=== PATIENT | male | born 1965 | race Hispanic/Latino ===

== ENCOUNTER 2018-09-17 00:08 | Emergency (ER) | payer MEDICAID ==
--- OUTSIDE RECORDS SUMMARY | 2018-09-17 00:12 | XMS REPORT | Clinical Summary ---
:1965 Author Organization [facility] Address [address] [place] [address] Care Team Providers Name Role Phone Damian Masters MD Primary Care Provider Allergies Active Allergy Reactions Severity Noted Date Comments Cat/Feline Products 09/02/2017 Cat Dander -- Wheezing Coconut Shortness Of Breath High 02/06/2017 Tickles Throat, Triggers Asthma Facial Mask Shortness Of Breath High 05/02/2016 wheezing Tree Nut Hives High 02/06/2017 Pecan, Shortness of Breath Medications Medication Sig Dispensed Refills Start Date End Date Status albuterol HFA Inhale 1 puff 0 Active (VENTOLIN HFA) 90 by mouth via mcg/actuation inhaler inhaler every 6 (six) hours as needed for Wheezing. thiamine (VITAMIN Take 100 mg 0 Active B-1) 100 MG tablet by mouth daily. dumovplo-eseb-pyp-fol Take by mouth 0 Active ic acid daily. ([id number] NERALS-FOLIC ACID) 3,500-18-0.4 unit-mg-mg ChewIndications: Awaiting organ transplant status levETIRAcetam Take 1,000 mg 0 Active (KEPPRA) 1000 MG by mouth 2 tabletIndications: (two) times Awaiting organ daily. transplant status calcium carbonate Take 600 mg 0 Active (OS-KARL) 600 mg by mouth calcium (1,500 mg) daily. Tab cholecalciferol Take 400 0 Active (VITAMIN D3) 400 unit Units by Tab tablet mouth daily. ZINC ORAL Take by mouth 0 Active daily . 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 rifAXIMin 550 mg Take 1 tablet 60 tablet 6 04/05/2018 Active TabIndications: (550 mg Hepatic total) by encephalopathy (HCC) mouth 2 (two) times daily. folic acid (FOLVITE) Take 1 mg by 0 Discontinued 1 MG tablet mouth daily. 8 levETIRAcetam Take 1 tablet 60 tablet 3 12/24/2016 (KEPPRA) 1000 MG (1,000 mg 8 tablet total) by mouth 2 (two) times daily. propranolol (INDERAL) Take 10 mg by 0 Discontinued 10 MG mouth daily. 8 tabletIndications: Alcoholic cirrhosis of liver without ascites (HCC), Ascites due to alcoholic hepatitis, Immunity status testing, Cancer screening, Upper GI bleeding pantoprazole daily . 0 04/06/2017 Discontinued (PROTONIX) 40 MG 8 tabletIndications: Alcoholic cirrhosis of liver without ascites (HCC), Cancer screening, Acute encephalopathy, Hemiparesis (HCC), Hepatic cirrhosis, unspecified hepatic cirrhosis type (HCC) FOLIC Take by mouth 0 Discontinued ACID/MULTIVIT-MIN/LUT daily . 8 EIN (CENTRUM SILVER ORAL) lactulose (CHRONULAC) Take 30 mLs 3000 mL 3 07/20/2017 Discontinued 20 gram/30 mL (20 g total) 8 solution by mouth 3 (three) times daily. rifAXIMin 550 mg Take 1 tablet 60 tablet 6 08/25/2017 Discontinued TabIndications: (550 mg 8 Hepatic total) by encephalopathy (HCC) mouth 2 (two) times daily. clindamycin (CLEOCIN) Take 300 mg 0 Discontinued 300 MG capsule by mouth 3 8 (three) times daily. promethazine Take 25 mg by 0 Discontinued (PHENERGAN) 25 MG mouth every 6 8 tablet (six) hours as needed for Nausea. folic acid (FOLVITE) Take 1 tablet 30 tablet 0 11/25/2017 Discontinued 1 MG (1 mg total) 8 tabletIndications: by mouth Alcoholic cirrhosis daily. of liver without ascites (HCC) folic acid (FOLVITE) Take 1 tablet 30 tablet 1 12/31/2017 Discontinued 1 MG (1 mg total) 8 tabletIndications: by mouth Alcoholic cirrhosis daily. of liver without ascites (HCC) cholecalciferol, Take by mouth 0 Discontinued vitamin D3, 2,000 daily. 8 unit CapIndications: Awaiting organ transplant status folic acid (FOLVITE) Take 1 tablet 30 tablet 2 03/12/2018 Discontinued 1 MG (1 mg total) 8 tabletIndications: by mouth Alcoholic cirrhosis daily. of liver without ascites (HCC) Hospital, Clinic, or Other Ordered Dose Route Frequency Start Date End Date Status Facility Administered Medication hepatitis B vaccine 40 mcg IM Once 11/11/2017 11/11/2017 Ended (RECOMBIVAX HB) injection 40 mcgIndications: Viral hepatitis vaccination Active Problems Problem Noted Date Abnormal stress test 04/09/2018 Pre-transplant evaluation for liver transplant 04/09/2018 Zinc deficiency 11/03/2017 Bleeding gums 09/04/2017 Severe anemia 09/04/2017 Symptomatic anemia 09/04/2017 Alcoholic cirrhosis of liver without ascites 09/04/2017 Hyperbilirubinemia 08/06/2017 Portal hypertension 08/06/2017 Hypomagnesemia 07/18/2017 Metabolic acidosis 07/18/2017 Anemia 07/18/2017 Thrombocytopenia 07/18/2017 Coagulopathy 07/18/2017 Portal hypertension 07/18/2017 History of seizures 07/17/2017 Hepatic encephalopathy syndrome 07/17/2017 Alcoholic cirrhosis of liver without ascites 01/08/2017 Last Assessment & Plan: Current MELD of 16 Ascites 01/08/2017 Immunity status testing 01/08/2017 Cancer screening 01/08/2017 Seizures 12/22/2016 Hemiparesis 12/21/2016 Last Assessment & Plan: Largely recovered w/only lasting deficit of 4/5 strength in LLE, possibly attributable to longstanding avascular necrosis of L femoral head Acute blood loss anemia 12/21/2016 Upper GI bleeding 12/21/2016 Last Assessment & Plan: UGIB 12/21/16 sp SZ w/EGD 12/22/16. FU EGD 02/09/17 showed no active bleeding just inflammation, per pt. Acute encephalopathy 12/21/2016 Lactic acidosis 12/21/2016 MONALISA (acute kidney injury) 12/21/2016 Hypernatremia 05/13/2016 Aspiration pneumonia of right lung 05/13/2016 Essential hypertension 05/07/2016 Last Assessment & Plan: Well controlled on current regiment Seizures 05/07/2016 Chronic obstructive pulmonary disease with acute exacerbation 05/07/2016 Hematemesis 05/02/2016 Intracranial hemorrhage 05/02/2016 Acute encephalopathy 05/02/2016 Encounters Date Type Specialty Care Team Description 09/07/2018 Documentation Transplant Hepatology Gisella Muhammad, RN 08/29/2018 Orders Only Transplant Hepatology Gisella Muhammad, Awaiting organ transplant status (Primary Dx); RN Screening for endocrine, nutritional, metabolic and immunity disorder 08/16/2018 Orders Only Transplant Hepatology Gisella Muhammad, Awaiting organ transplant status (Primary Dx); RN Other cirrhosis of liver (HCC) 08/16/2018 Telephone Transplant Hepatology Kayley Johnson (Scheduled 09/03 mri appt w/pts mother. Itinerary mailed.) 08/10/2018 Social Work Transplant Hepatology Barbara Mccann, [facility] 08/03/2018 Follow-Up Transplant Hepatology Dutch Ferrara Abnormal stress test; MD Maryellen Alcoholic cirrhosis of liver without ascites (HCC); Perez Patterson, Other ascites; Chronic obstructive pulmonary disease with acute exacerbation (HCC); Coagulopathy (HCC); Hepatic encephalopathy syndrome (HCC); Portal hypertension (HCC); Zinc deficiency 08/02/2018 Telephone Transplant Hepatology Kayley Johnson (Confirmed 08/03 appt w/pts mother.) 07/19/2018 Anesthesia Event Gastroenterology Levi Colmenares MD 07/19/2018 Surgery Gastroenterology Radhika Grimm UPPER ENDOSCOPY MD Fitz 07/19/2018 Hospital Encounter Gastroenterology Radhika Grimm MD 07/09/2018 Hospital Encounter Pre-Admission Testing Resource, Oqmt Preadmit Phone 06/23/2018 Orders Only Transplant Hepatology Ducth Ferrara Awaiting organ MD Maryellen transplant status 06/16/2018 Telephone Hepatology Paulina Stokes Procedure (EGD/MAC) L 06/14/2018 Telephone Transplant Hepatology Kayley Johnson (Scheduled 06/23 labs & 08/03 clinic appt w/pts mother. Itinerary mailed.) 06/14/2018 Telephone Transplant Hepatology Alex Appointment (LVM. Salud Cortes Called to schedule MELD labs due 06/26 & clinic appt due July.) 04/09/2018 Surgery Kermit Pantoja, R & L CATH (+/- MD SATS & CARDIAC OUTPUT) 04/09/2018 Hospital Encounter Kermit Pantoja, Abnormal stress test; Pre-transplant evaluation for liver transplant 04/09/2018 Orders Only General Internal Medicine 04/05/2018 Refill Transplant Hepatology Gisella Muhammad Hepatic RN encephalopathy (HCC) 04/05/2018 Orders Only Transplant Hepatology Gisella Muhammad, RN 03/26/2018 Orders Only Lab Debora Masters Awaiting organ MD Alvino transplant status 03/18/2018 Hospital Encounter Radiology Kyler, Awaiting organ transplant status; Swathi Mi MD Hepatic cirrhosis, unspecified hepatic cirrhosis type, unspecified whether ascites present (HCC) [facility] 03/18/2018 Refill Transplant Hepatology Gisella Muhammad Hepatic RN encephalopathy (HCC) (Primary Dx) 03/17/2018 Documentation Hepatology Jimi Combs, DANIEL 03/12/2018 Orders Only Transplant Hepatology Gisella Muhammad, Alcoholic cirrhosis RN of liver without ascites (HCC) 03/11/2018 Hospital Encounter Cardiology Noé Lacey Awaiting organ MD Andreas transplant status 02/22/2018 Telephone Transplant Hepatology Kayley Johnson (Scheduled 03/18 mri appt w/pts mother. Itinerary mailed.) 02/22/2018 Telephone Transplant Hepatology Kayley Johnson (LVM. Salud Cortes Calling to schedule mri on 03/11 and clinic appt in july. 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) (Primary Dx); RN Alcoholic cirrhosis of liver without ascites (HCC); Ascites due to alcoholic hepatitis; Immunity status testing; Cancer screening; Upper GI bleeding 02/04/2018 Telephone Transplant Hepatology Kayley Johnson (Confirmed 03/11 appt w/pt.) 02/02/2018 Follow-Up Transplant Hepatology Noé Lacey Alcoholic cirrhosis of liver with ascites (HCC) (Primary Dx); MD Andreas Awaiting organ transplant status; Kyler, Portal hypertension (HCC); Swathi Mi MD Hepatic encephalopathy (HCC); [facility] Zinc deficiency; Alcohol use disorder (HCC); Screening for malignant neoplasm; Hyperbilirubinemia; Other ascites 02/01/2018 Telephone Transplant Hepatology Alex, Appointment (LVM. Salud Cortes Calling to confirm 02/02 appt w/pt.) 01/27/2018 Telephone Transplant Hepatology Alex, Appointment (Pts Salud Cortes sister called and confirmed 02/02 clinic appt 03/11 echo & 03/18 Dr Pantoja appt.) 12/31/2017 Refill Transplant Hepatology Gisella Muhammad, Alcoholic cirrhosis RN of liver without ascites (HCC) 12/24/2017 Orders Only Transplant Hepatology Dutch Ferrara Awaiting organ MD Maryellen transplant status 12/24/2017 Orders Only Transplant Hepatology Milton, Awaiting organ Kashaundra transplant status 12/23/2017 Orders Only Transplant Hepatology Gisella Muhammad, Awaiting organ tie binder status (Primary Dx) 12/18/2017 Refill Transplant Hepatology Gisella Muhammad, RN 11/25/2017 Orders Only Transplant Hepatology Natalie Whitley Alcoholic cirrhosis C, RN of liver without ascites (HCC) (Primary Dx) 11/23/2017 Telephone Transplant Hepatology Alex, Appointment Salud Cortes (Scheduled 02/02 clinic, 03/11 echo & confirmed 03/18 Dr Pantoja appt w/mother. Itinerary mailed.) 11/11/2017 Orders Only Transplant Hepatology Gisella Muhammad Viral hepatitis RN vaccination (Primary Dx) 11/09/2017 Hospital Encounter Radiology Noé Lacey Awaiting organ transplant status; MD Andreas Cirrhosis of liver with ascites, unspecified hepatic cirrhosis type (HCC) 11/09/2017 Telephone Transplant Hepatology Gisella Muhammad, Follow-up RN 11/09/2017 Outside Orders Noé Lacey MD 11/07/2017 Orders Only Transplant Hepatology Gisella Muhammad, Awaiting organ tie binder status (Primary Dx) 11/03/2017 Follow-Up Transplant Hepatology Sade Slater Awaiting organ transplant status (Primary Dx); MD Neri Immunity status testing; Abhijit, Rise Cirrhosis of liver with ascites, unspecified hepatic cirrhosis type (HCC); MD Andreas Screening for malignant neoplasm; Alcohol use disorder, mild, in sustained remission, abuse 11/02/2017 Telephone Transplant Hepatology Kayley Johnson (Cancelled 11/03 mri appt w/pts mother (due to no ins auth). ) 11/02/2017 Telephone Transplant Hepatology Kayley Johnson (Confirmed 11/02 appts w/pts mother.) 10/22/2017 Social Work Transplant Hepatology Barbara Mccann LCSW 10/21/2017 Documentation Transplant Hepatology Hang Verdin, [facility] 10/05/2017 Telephone Transplant Hepatology Kayley Johnson (Rescheduled 10/06 clinic & mri appts w/mother (mri not authorizated) rescheduled to 11/03. Itinerary mailed.) 10/05/2017 Telephone Transplant Hepatology Kayley Johnson (Confirmed 10/06 appts w/mom.) 09/22/2017 Social Work Transplant Hepatology Barbara Mccann [employer]ONT END [employer]UPAL DEVELOPER after 09/16/2017 Immunizations Name Dates Previously Given Next Due Hepatitis B 04/10/2017 05/11/2017 Hepatitis B Dialysis Or Immunosupressed 3-Dose IM 11/11/2017 Pneumococcal Polysaccharide (Pneumovax) 07/19/2017 Family History Medical History Relation Name Comments Hypertension Maternal Grandfather Hypertension Maternal Grandmother Relation Name Status Comments Maternal Grandfather Maternal Grandmother Social History Tobacco Use Types Packs/Day Years Used Date Former Smoker Smokeless Tobacco: Never Used Tobacco Cessation: Counseling Given: No Comments: QUIT 04/2016 Alcohol Use Drinks/Week oz/Week Comments No Quit drinking Apr 2016 Sex Assigned at Date Recorded Not on file Job Start Date Occupation Industry Not on file Not on file Not on file Travel History Travel Start Travel End No recent travel history available. Last Filed Vital Signs Vital Sign Reading Time Taken Blood Pressure 106/67 08/03/2018 9:21 AM BOTTLE DEALER Pulse 55 08/03/2018 9:21 AM BOTTLE DEALER Temperature 36.5 C (97.7 F) 08/03/2018 9:21 AM BOTTLE DEALER Respiratory Rate 18 08/03/2018 9:21 AM BOTTLE DEALER Oxygen Saturation 96% 08/03/2018 9:21 AM BOTTLE DEALER Inhaled Oxygen Concentration - - Weight 71.4 kg (157 lb 6.4 oz) 08/03/2018 9:21 AM BOTTLE DEALER Height 170.2 cm (5' 7") 08/03/2018 9:21 AM BOTTLE DEALER Body Mass Index 24.65 08/03/2018 9:21 AM BOTTLE DEALER Plan of Treatment Date Type Specialty Care Team Description 09/20/2018 Orders Only Transplant Hepatology Health Maintenance Due Date Last Done Comments INFLUENZA VACCINE 06/21/2018 Implants Implanted Type Area Warble Saw Operator Device Shelf Model / Identifier Expiration Serial / Date Lot Cement Inject 5cc Hydroset [id number] - [id number] Cement/Trent Right: SWETHA: SWETHA 01/28/2018 [id number] / Implanted: Qty: 1 on 05/02/2016 by Emmanuel Valerio MD ler/ Adhesi Scalp INSTR / ve [id number] Grft Dura Cllgn Duragn 1x1in Id-[id number] - [id number] Tissue Right: INTEGRA 06/20/2018 ID-1105 / Implanted: Qty: 1 on 05/02/2016 by Emmanuel Valerio MD Graft/ Subs Head LIFESCI:NEURO / titute [id number] Procedures Procedure Name Priority Date/Time Associated Comments Diagnosis REPORT OF PROCEDURE - 07/19/2018 12:31 ENDOSCOPY URL PM CDT TISSUE EXAM AP Routine 07/19/2018 12:19 Results for this PM CDT procedure are in the results section. UPPER ENDOSCOPY 07/19/2018 10:30 Esophageal varices AM CDT without bleeding, unspecified esophageal varices type (HCC) VASCULAR DIAGRAM 07/07/2018 7:10 -SCAN AM CDT CBC W/PLT COUNT & Routine 06/23/2018 10:01 Awaiting organ Results for this AUTO DIFFERENTIAL AM CDT transplant status procedure are in the results section. PROTHROMBIN TIME/INR Routine 06/23/2018 10:01 Awaiting organ Results for this AM CDT transplant status procedure are in the results section. BILIRUBIN, DIRECT Routine 06/23/2018 10:01 Awaiting organ Results for this AM CDT transplant status procedure are in the results section. CBC W/PLT COUNT & Routine 06/23/2018 10:01 Awaiting organ Results for this AUTO DIFFERENTIAL AM CDT transplant status procedure are in the results section. COMPREHENSIVE Routine 06/23/2018 10:01 Awaiting organ Results for this METABOLIC PANEL AM CDT transplant status procedure are in the results section. CARDIAC CATH REPORT - 04/14/2018 11:32 SCAN AM CDT VASCULAR DIAGRAM 04/13/2018 9:30 -SCAN AM CDT R & L CATH (+/- SATS 04/09/2018 12:57 Pre-transplant & CARDIAC OUTPUT) PM CDT evaluation for liver transplant Case Notes POP6 POSS PCI / CORONARY ANGIO ECG 12-LEAD Routine 04/09/2018 8:29 AM CDT Procedure Note - Interface, External Ris In - 04/09/2018 11:27 AM CDT Ventricular Rate 57 BPM Atrial Rate 57 BPM P-R Interval 226 ms QRS Duration 114 ms Q-T Interval 436 ms QTC Calculation(Bazett) 424 ms P [place] 56 degrees R [place] 62 degrees T [place] 56 degrees Sinus bradycardia with 1st degree A-V block Otherwise normal ECG When compared with ECG of 17-JUL-2017 09:49, Premature atrial complexes are no longer Present UT interval has increased ECG 12-LEAD Routine 04/09/2018 8:29 Results for this AM CDT procedure are in the results section. CBC W/PLT COUNT & AUTO STAT 04/09/2018 7:46 Results for this DIFFERENTIAL AM CDT procedure are in the results section. PT/APTT STAT 04/09/2018 7:46 Results for this AM CDT procedure are in the results section. CBC W/PLT COUNT & AUTO STAT 04/09/2018 7:46 Results for this DIFFERENTIAL AM CDT procedure are in the results section. BASIC METABOLIC PANEL STAT 04/09/2018 7:46 Results for this (7) AM CDT procedure are in the results section. CBC W/PLT COUNT & AUTO Routine 03/26/2018 11:23 Awaiting organ Results for this DIFFERENTIAL AM CDT transplant status procedure are in the results section. PROTHROMBIN TIME/INR Routine 03/26/2018 11:23 Awaiting organ Results for this AM CDT transplant status procedure are in the results section. BILIRUBIN, DIRECT Routine 03/26/2018 11:23 Awaiting organ Results for this AM CDT transplant status procedure are in the results section. CBC W/PLT COUNT & AUTO Routine 03/26/2018 11:23 Awaiting organ Results for this DIFFERENTIAL AM CDT transplant status procedure are in the results section. COMPREHENSIVE METABOLIC Routine 03/26/2018 11:23 Awaiting organ Results for this PANEL AM CDT transplant status procedure are in the results section. MR ABDOMEN WITH/WITHOUT Routine 03/18/2018 1:23 Awaiting organ Results for this IV CONTRAST PM CDT transplant status procedure are in Hepatic cirrhosis, the results unspecified hepatic section. cirrhosis type, unspecified whether ascites present (HCC) POCT-CREATININE Routine 03/18/2018 12:58 Results for this PM CDT procedure are in the results section. ECHOCARDIOGRAM REPORT - 03/11/2018 10:52 SCAN AM CDT ECHO W CONTRAST & Routine 03/11/2018 8:37 Awaiting organ Results for this DOPPLER AM CDT transplant status procedure are in the results section. CBC W/PLT COUNT & AUTO Routine 02/02/2018 9:53 Awaiting organ Results for this DIFFERENTIAL AM CDT transplant status procedure are in the results section. CBC W/PLT COUNT & AUTO Routine 02/02/2018 9:53 Awaiting organ Results for this DIFFERENTIAL AM CDT transplant status procedure are in the results section. PROTHROMBIN TIME/INR Routine 02/02/2018 9:53 Awaiting organ Results for this AM CDT transplant status procedure are in the results section. BILIRUBIN, DIRECT Routine 02/02/2018 9:53 Awaiting organ Results for this AM CDT transplant status procedure are in the results section. COMPREHENSIVE METABOLIC Routine 02/02/2018 9:53 Awaiting organ Results for this PANEL AM CDT transplant status procedure are in the results section. HEPATITIS B SURFACE Routine 02/02/2018 9:53 Awaiting organ Results for this ANTIBODY AM CDT transplant status procedure are in the results section. CBC W/PLT COUNT & AUTO Routine 12/24/2017 12:53 Awaiting organ Results for this DIFFERENTIAL PM CDT transplant status procedure are in the results section. PROTHROMBIN TIME/INR Routine 12/24/2017 12:53 Awaiting organ Results for this PM CDT transplant status procedure are in the results section. BILIRUBIN, DIRECT Routine 12/24/2017 12:53 Awaiting organ Results for this PM CDT transplant status procedure are in the results section. CBC W/PLT COUNT & AUTO Routine 12/24/2017 12:53 Awaiting organ Results for this DIFFERENTIAL PM CDT transplant status procedure are in the results section. COMPREHENSIVE METABOLIC Routine 12/24/2017 12:53 Awaiting organ Results for this PANEL PM CDT transplant status procedure are in the results section. US ABDOMINAL WITH Routine 11/09/2017 9:56 Results for this DOPPLER AM BOTTLE DEALER procedure are in the results section. CBC W/PLT COUNT & AUTO Routine 11/03/2017 10:22 Awaiting organ Results for this DIFFERENTIAL AM BOTTLE DEALER transplant status procedure are in the results section. HEPATITIS B SURFACE Routine 11/03/2017 10:22 Immunity status Results for this ANTIBODY AM BOTTLE DEALER testing procedure are in the results section. ZINC Routine 11/03/2017 10:22 Awaiting organ Results for this AM BOTTLE DEALER transplant status procedure are in the results section. MAGNESIUM Routine 11/03/2017 10:22 Awaiting organ Results for this AM BOTTLE DEALER transplant status procedure are in the results section. PROTHROMBIN TIME/INR Routine 11/03/2017 10:22 Awaiting organ Results for this AM BOTTLE DEALER transplant status procedure are in the results section. COMPREHENSIVE METABOLIC Routine 11/03/2017 10:22 Awaiting organ Results for this PANEL AM BOTTLE DEALER transplant status procedure are in the results section. CBC W/PLT COUNT & AUTO Routine 11/03/2017 10:22 Awaiting organ Results for this DIFFERENTIAL AM BOTTLE DEALER transplant status procedure are in the results section. BILIRUBIN, DIRECT Routine 11/03/2017 10:22 Awaiting organ Results for this AM BOTTLE DEALER transplant status procedure are in the results section. ALPHA FETOPROTEIN Routine 11/03/2017 10:22 Awaiting organ Results for this (AFP), TUMOR MARKER AM BOTTLE DEALER transplant status procedure are in the results section. after 09/16/2017 Results REPORT OF PROCEDURE - ENDOSCOPY URL (07/19/2018 12:31 PM CDT) Narrative Performed At Tissue Exam (07/19/2018 12:19 PM CDT) Case Report Surgical Pathology Report Case: [id number] [facility] Authorizing Provider:Radhika Grimm MDCollected: 07/19/2018 1219 [facility] Ordering Location: [facility] Endoscopy Received: 07/19/2018 1354 Services Pathologist: Rama Hatch MD Specimens: A) - Duodenum, Bx B) - Antrum, R/O Helicobacter DIAGNOSIS A. DUODENUM, ENDOSCOPIC MUCOSAL BIOPSIES: [facility] - DUODENAL MUCOSA WITH PRESERVED VILLOUS ARCHITECTURE AND MINOR [facility] NONSPECIFIC ALTERATIONS B. STOMACH, ENDOSCOPIC MUCOSAL BIOPSIES - ANTRAL MUCOSA WITH NO SIGNIFICANT DIAGNOSTIC ALTERATIONS - NEGATIVE FOR HELICOBACTER PYLORI - NEGATIVE FOR INTESTINAL METAPLASIA, DYSPLASIA OR CARCINOMA Signing Pathologist Direct Phone Line: [phone] CPT Code(s) 04645 x2, 23814 [facility] CLINICAL HISTORY Esophageal varices without [facility] bleeding, rule out H. pylori [facility] SPECIMEN SOURCE A. Duodenum biopsy; B. [facility] Antrum biopsy [facility] GROSS DESCRIPTION Specimen A; Received in formalin labeled "duodenum" are two fragments measuring 0.2 and 0.3 cm in greatest dimension. Entirely submitted A1. [facility] Specimen B. Received in formalin labeled "antrum" are two fragments measuring 0.4 and 0.6 cm in greatest dimension. Entirely submitted B1. DB/pl MICROSCOPIC DESCRIPTION A. Section shows pieces of duodenal mucosa with preserved villous architecture. Mild vascular congestion is seen. Plasma cells are present. There is no active inflammation, gastric metaplasia, intraepit [facility] helial lymphocytosis or malignancy. No parasites are seen. [facility] B. Microscopic examination is performed and the findings are incorporated in the diagnostic line. Warthin starry stain is negative for Helicobacter pylori. Specimen Tissue - Duodenum Performing Organization Address City/State/Zipcode Phone Number [address] [address] CENTER VASCULAR DIAGRAM -SCAN (07/07/2018 7:10 AM CDT)Only the most recent of2 resultswithin the time period is included. Narrative Performed At CBC with platelet count + automated diff (06/23/2018 10:01 AM CDT)Only the most recent of6 resultswithin the time period is included. WBC 3.7 3.5 - 10.5 K/L [facility] RBC 4.02 (L) 4.63 - 6.08 M/L [facility] Hemoglobin 12.2 (L) 13.7 - 17.5 GM/DL [facility] Hematocrit 37.1 (L) 40.1 - 51.0 % [facility] MCV 92.3 (H) 79.0 - 92.2 fL [facility] MCH 30.3 25.7 - 32.2 pg [facility] MCHC 32.9 32.3 - 36.5 GM/DL [facility] RDW 14.4 11.6 - 14.4 % [facility] Platelets 67 (L) 150 - 450 K/CU MM [facility] MPV 11.6 9.4 - 12.4 fL [facility] nRBC 0 0 - 0 /100 WBC [facility] % Neutros 54 % [facility] % Lymphs 30 % [facility] % Monos 12 % [facility] % Eos 4 % [facility] % Baso 1 % [facility] # Neutros 1.98 1.78 - 5.38 K/L [facility] # Lymphs 1.10 (L) 1.32 - 3.57 K/L [facility] # Monos 0.43 0.30 - 0.82 K/L [facility] # Eos 0.14 0.04 - 0.54 K/L [facility] # Baso 0.02 0.01 - 0.08 K/L [facility] Immature Granulocytes-Relative 0 0 - 1 % [facility] Specimen Blood Performing Organization Address City/State/Zipcode Phone Number [facility] [address] [place] [address] CENTER Prothrombin time/INR (06/23/2018 10:01 AM CDT)Only the most recent of5 resultswithin the time period is included. Protime 17.0 (H) 11.7 - 14.7 seconds [facility] INR 1.4 <=5.9 [facility] Specimen Blood Narrative Performed At [facility] RECOMMENDED COUMADIN/WARFARIN INR THERAPY RANGES STANDARD DOSE: 2.0 - 3.0 Includes: PROPHYLAXIS for venous thrombosis, systemic embolization; TREATMENT for venous thrombosis and/or pulmonary embolus. HIGH RISK: Target INR is 2.5-3.5 for patients with mechanical heart valves. Performing Organization Address City/[facility] Phone Number [address] [phone] CENTER Bilirubin, direct (06/23/2018 10:01 AM CDT)Only the most recent of5 resultswithin the time period is included. Bilirubin, Direct 1.0 (H) 0.1 - 0.5 mg/dL [facility] Specimen Blood Performing Organization Address [facility] Phone Number [address] [phone] [place] Comprehensive metabolic panel (06/23/2018 10:01 AM CDT)Only the most recent of5 resultswithin the time period is included. Protein, Total 7.3 6.0 - 8.3 gm/dL [facility] Albumin 3.2 (L) 3.5 - 5.0 g/dL [facility] Alkaline Phosphatase 81 40 - 150 U/L [facility] Total Bilirubin 2.1 (H) 0.2 - 1.2 mg/dL [facility] Sodium 140 136 - 145 meq/L [facility] Potassium 3.6 3.5 - 5.1 meq/L [facility] Chloride 111 (H) 98 - 107 meq/L [facility] CO2 21 (L) 22 - 29 meq/L [facility] BUN 16 7 - 21 mg/dL [facility] Creatinine 1.10 0.57 - 1.25 mg/dL [facility] Glucose 99 70 - 105 mg/dL [facility] Calcium 9.4 8.4 - 10.2 mg/dL [facility] AST 23 5 - 34 U/L [facility] ALT 14 6 - 55 U/L [facility] EGFR 69Comment: ESTIMATED GFR mL/min/1.73 sq m [facility] IS NOT ACCURATE [facility] CREATININE CLEARANCE IN PREDICTING GLOMERULAR FILTRATION RATE. ESTIMATED GFR IS NOT APPLICABLE FOR DIALYSIS PATIENTS. Specimen Blood Performing Organization Address City/[facility] Phone Number [facility] [address] [place] [address] [phone] CENTER CARDIAC CATH REPORT - SCAN (04/14/2018 11:32 AM CDT) Narrative Performed At ECG 12 lead (04/09/2018 8:29 AM CDT) Narrative Performed At Ventricular Rate 57 BPM GE MUSE Atrial Rate 57 BPM P-R Interval 226 ms QRS Duration 114 ms Q-T Interval 436 ms QTC Calculation(Bazett) 424 ms P [place] 56 degrees R [place] 62 degrees T [place] 56 degrees Sinus bradycardia with 1st degree A-V block Otherwise normal ECG When compared with ECG of 17-JUL-2017 09:49, Premature atrial complexes are no longer Present UT interval has increased Confirmed by Huber Sweeney, Dylan ([id number]) on 04/11/2018 8:21:05 PM Procedure Note Interface, External Ris In - 04/11/2018 8:21 PM CDT Ventricular Rate 57 BPM Atrial Rate 57 BPM P-R Interval 226 ms QRS Duration 114 ms Q-T Interval 436 ms QTC Calculation(Bazett) 424 ms P [place] 56 degrees R [place] 62 degrees T [place] 56 degrees Sinus bradycardia with 1st degree A-V block Otherwise normal ECG When compared with ECG of 17-JUL-2017 09:49, Premature atrial complexes are no longer Present UT interval has increased Confirmed by Huber Sweeney Alireaz ([id number]) on 04/11/2018 8:21:05 PM Performing Organization Address City/[facility]/Zipcode Phone Number LOPEZ GERMAN PT/aPTT (04/09/2018 7:46 AM CDT) Protime 18.9 (H) 11.7 - 14.7 seconds [facility] INR 1.6 <=5.9 [facility] PTT 46.7 (H) 22.5 - 36.0 seconds [facility] Specimen Blood Narrative Performed At [facility] RECOMMENDED COUMADIN/WARFARIN INR THERAPY RANGES STANDARD DOSE: 2.0 - 3.0 Includes: PROPHYLAXIS for venous thrombosis, systemic embolization; TREATMENT for venous thrombosis and/or pulmonary embolus. HIGH RISK: Target INR is 2.5-3.5 for patients with mechanical heart valves. Performing Organization Address [facility] Phone Number [address] [address] CENTER Basic Metabolic Panel (04/09/2018 7:46 AM CDT) Sodium 139 136 - 145 meq/L [facility] Potassium 3.8 3.5 - 5.1 meq/L [facility] Chloride 111 (H) 98 - 107 meq/L [facility] CO2 21 (L) 22 - 29 meq/L [facility] BUN 17 7 - 21 mg/dL [facility] Creatinine 1.15 0.57 - 1.25 mg/dL [facility] Glucose 113 (H) 70 - 105 mg/dL [facility] Calcium 9.3 8.4 - 10.2 mg/dL [facility] EGFR 66Comment: ESTIMATED GFR IS mL/min/1.73 sq m [facility] NOT ACCURATE CREATININE [facility] CLEARANCE IN PREDICTING GLOMERULAR FILTRATION RATE. ESTIMATED GFR IS NOT APPLICABLE FOR DIALYSIS PATIENTS. Specimen Blood Narrative Performed At [facility] Specimen slightly icteric Performing Organization Address [facility]/Zipcode Phone Number [facility] [address] [place] [address] [phone] CENTER MRI abdomen with and without contrast (03/18/2018 1:23 PM CDT) Narrative Performed At FINAL REPORT [facility] History: Cirrhosis, liver transplant list Comparison: None Technique : Multiplanar imaging with multiple sequences of the abdomen was performed utilizing a 3.0 xander magnet with and without the administration of gadolinium contrast. Comment: The lung bases are clear. There are no focal or diffuse abnormalities of the osseous structures. The subcutaneous soft tissues as well as the musculature are within normal limits. The adrenal glands, kidneys, pancreas, stomach, and duodenum are within normal limits. There is no abdominal or retroperitoneal lymphadenopathy. The visualized portions of the large and small bowel are within normal limits. There is cholelithiasis. There is hepatic cirrhosis. No suspicious enhancing hepatic lesions are seen. There is splenomegaly. No ascites is identified. The portal vein measures up to a maximum of 1.3 cm in diameter. There is a recanalized periumbilical vein. There is no portal, splenic, or superior mesenteric vein thrombosis. 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 Impression: 1. Hepatic cirrhosis. No suspicious enhancing hepatic lesions are seen. 2. Splenomegaly with findings of portal hypertension. 3. Cholelithiasis. Signed: Malik Villatoro MD Report Verified Date/Time:03/18/2018 14:17:19 Reading Location: [facility] Diagnostic Imaging Reading Room - [place] [address] Procedure Note Interface, External Ris In - 03/18/2018 2:19 PM CDT FINAL REPORT History: Cirrhosis, liver transplant list Comparison: None Technique : Multiplanar imaging with multiple sequences of the abdomen was performed utilizing a 3.0 xander magnet with and without the administration of gadolinium contrast. Comment: The lung bases are clear. There are no focal or diffuse abnormalities of the osseous structures. The subcutaneous soft tissues as well as the musculature are within normal limits. The adrenal glands, kidneys, pancreas, stomach, and duodenum are within normal limits. There is no abdominal or retroperitoneal lymphadenopathy. The visualized portions of the large and small bowel are within normal limits. There is cholelithiasis. There is hepatic cirrhosis. No suspicious enhancing hepatic lesions are seen. There is splenomegaly. No ascites is identified. The portal vein measures up to a maximum of 1.3 cm in diameter. There is a recanalized periumbilical vein. There is no portal, splenic, or superior mesenteric vein thrombosis. 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 Impression: 1. Hepatic cirrhosis. No suspicious enhancing hepatic lesions are seen. 2. Splenomegaly with findings of portal hypertension. 3. Cholelithiasis. Signed: Malik Villatoro MD Report Verified Date/Time: 03/18/2018 14:17:19 Reading Location: [facility] Diagnostic Imaging Reading Room - [place] [address] Performing Organization Address City/[facility]/Zipcode Phone Number [employer] POC-Creatinine (03/18/2018 12:58 PM CDT) POC-Creatinine 1.1Comment: TESTED AT 0.6 - 1.3 mg/dL [address] [address] POC-EGFR 70 mL/min/1.73M2 [facility] Specimen Blood Performing Organization Address [facility]/Zipcode Phone Number [address] [address] [place] ECHOCARDIOGRAM REPORT - SCAN (03/11/2018 10:52 AM CDT) Narrative Performed At ECHO W CONTRAST & DOPPLER (03/11/2018 8:37 AM CDT) Ejection Fraction [facility] Narrative Performed At Transthoracic Echocardiography Report (TTE) [facility] Demographics Patient Name AFSHAN WONG Date of Study 03/11/2018 [id number] GenderMale Visit Number [id number] Unknown [id number] Room Number Number Date of Birth1965Referring Physician Abhijit Nettles Age52 year(s)Bender Machine Serafin Campoverde RDCS AnalystAPhysician ALICE Alvarez Procedure Type of Study TTE procedure:2DECHO W/CONTRAST & DOPPLER (Routine) Indications:Liver transplant evaluation. Clinical History HTN, Cirrhosis, Anemia Height: 67 inches Weight: 65.77 kg (145 lbs) BSA: 1.76 m^2 BMI: 22.71 kg/m^2 HR: 53 bpm BP: 134/76 mmHg Summary The left ventricle is chamber size (by vol index) is normal (male - LVED vol - 34-74ml/m2). Normal LV wall thickness. All of the LV segments contract normally . Global LV systolic function normal . LVEF by Pantoja's method of disk assessment is normal (55-60%) . Normal diastolic function. The right ventricular chamber size and systolic function are within normal limits. Estimated peak systolic PA pressure is 20-25 mmHg . No pericardial effusion is visualized. Previous Study Compared to the previous study there was no significant change. Previous study on 03/04/2017 demonstrated Intra pulmonic shunting by delayed positive saline study. Signature Findings Left Ventricle The LV endocardium is adequately visualized. Th e left ventricle is chamber size (by vol index) is normal (male - LVED vol - 34-74ml/m2). No rmal LV wall thickness. Al l of the LV segments contract normally . Gl obal LV systolic function normal . LV EF by Pantoja's method of disk assessment is no rmal (55-60%) . No rmal diastolic function. Left AtriumLA size is normal (16-34 ml/m2) . Right VentricleThe right ventricular chamber size and systolic fu nction are within normal limits. Right Atrium RA size is normal. Aortic Valve Normal AoV structure and function. Mitral Valve Normal MV structure. No significant mitral regurgitation. Tricuspid ValveNormal TV structure A trace of tricuspid regurgitation. Es timated peak systolic PA pressure is 20-25 mmHg . Pulmonic Valve Normal PV structure and function. AortaAortic root size (SInus of Valsalva diameter) is mi ldly dilated . Pr oximal ascending aorta size is normal . PericardiumNo pericardial effusion is visualized. IVC/SVC/PA/PV/PleuralThe estimated RA pressure by IVC dynamics 0-5mmHg . Chambers/Structures Left Atrium LA Dimension: 4.11 cmLA Area: 21.33 cm^2 LA Volume: 59.28 ml LA Vol. Index: 34 ml/m^2 Left Ventricle LVIDd: 4.84 cm LVEDV:114.19 ml LVIDs: 3.09 cm LV Septum Diastolic: 0.87 cm LV PW Diastolic: 0.88 cm LV Length: 8.25 cm LVEDV Pantoja's:102.24 mlLV FS: 36.2 % LVESV Pantoja's:44.19 ml LV IVRT: 100.1 msec LVEF Pantoja's: 56.8 % LVEDVI: 58 ml/m^2 LVESVI: 25 ml/m^2 LVOT Diameter: 2.04 cm Right Atrium RA Vol. (Sngl Plane): 45.43 ml Right Ventricle RV Diast Dim.: 3.79 cm TAPS E: 2.82 cm Aorta Ao Root S of Qi.: 3.7 cm Ascending Aorta: 3 cm Doppler/Quantitative Measurements Mitral Valve MV Peak E-Wave: 0.66 m/sMV Peak A-Wave: 0.35 m/s E/A Ratio: 1.88 Peak Gradient: 1.75 mmHg Deceleration Time: 200.1 msec MV Tuan. Peak: Tissue Doppler E' Lateral Velocity: 0.1 m/sE/E': 6.86 Aortic Valve Peak Velocity: 1.22 m/sMean Velocity: 0.88 m/s Peak Gradient: 5.99 mmHg Mean Gradient: 3.44 mmHg AV Area (continuity): 2.85 cm^2 AV VTI: 30.5 cm AV DVI: 0.87 LVOT Peak Velocity: 0.97 m/s Peak Gradient: 3.73 mmHg Mean Velocity: 0.69 m/s Mean Gradient: 2.09 mmHg LVOT Diameter: 2.04 cmLVOT VTI: 26.59 cm LVOT Area: 3.27 cm^2LVOT SV:86.87 ml LVOT CO: 4.6 l/minLVOT CI: 2.61 l/min/m^2 RVOT RVOT VTI (PW): 19.7 cm Tricuspid Valve TR Velocity: 2.35 m/s TR Gradient: 22.1 mmHg Procedure Note Interface, External Ris In - 03/11/2018 10:26 AM CDT Transthoracic Echocardiography Report (TTE) Demographics Patient Name AFSHAN WONG Date of Study 03/11/2018 Gender Male Visit Number [id number] Race Unknown Room Number Number Date of 1965 Referring Physician Abhijit Nettles Age 52 year(s) Bender Machine Serafin Campoverde RD Biometrics Specialist Alice Mahmood Interpreting Physician ALICE Cramer Procedure Type of Study TTE procedure:2DECHO W/CONTRAST & DOPPLER (Routine) Indications:Liver transplant evaluation. Clinical History HTN, Cirrhosis, Anemia Height: 67 inches Weight: 65.77 kg (145 lbs) BSA: 1.76 m^2 BMI: 22.71 kg/m^2 HR: 53 bpm BP: 134/76 mmHg Summary The left ventricle is chamber size (by vol index) is normal (male - LVED vol - 34-74ml/m2). Normal LV wall thickness. All of the LV segments contract normally . Global LV systolic function normal . LVEF by Pantoja's method of disk assessment is normal (55-60%) . Normal diastolic function. The right ventricular chamber size and systolic function are within normal limits. Estimated peak systolic PA pressure is 20-25 mmHg . No pericardial effusion is visualized. Previous Study Compared to the previous study there was no significant change. Previous study on 03/04/2017 demonstrated Intra pulmonic shunting by delayed positive saline study. Signature Findings Left Ventricle The LV endocardium is adequately visualized. The left ventricle is chamber size (by vol index) is normal (male - LVED vol - 34-74ml/m2). Normal LV wall thickness. All of the LV segments contract normally . Global LV systolic function normal . LVEF by Pantoja's method of disk assessment is normal (55-60%) . Normal diastolic function. Left Atrium LA size is normal (16-34 ml/m2) . Right Ventricle The right ventricular chamber size and systolic function are within normal limits. Right Atrium RA size is normal. Aortic Valve Normal AoV structure and function. Mitral Valve Normal MV structure. No significant mitral regurgitation. Tricuspid Valve Normal TV structure A trace of tricuspid regurgitation. Estimated peak systolic PA pressure is 20-25 mmHg . Pulmonic Valve Normal PV structure and function. Aorta Aortic root size (SInus of Valsalva diameter) is mildly dilated . Proximal ascending aorta size is normal . Pericardium No pericardial effusion is visualized. IVC/SVC/PA/PV/Pleural The estimated RA pressure by IVC dynamics 0-5mmHg . Chambers/Structures Left Atrium LA Dimension: 4.11 cm LA Area: 21.33 cm^2 LA Volume: 59.28 ml LA Vol. Index: 34 ml/m^2 Left Ventricle LVIDd: 4.84 cm LVEDV:114.19 ml LVIDs: 3.09 cm LV Septum Diastolic: 0.87 cm LV PW Diastolic: 0.88 cm LV Length: 8.25 cm LVEDV Pantoja's:102.24 ml LV FS: 36.2 % LVESV Pantoja's:44.19 ml LV IVRT: 100.1 msec LVEF Pantoja's: 56.8 % LVEDVI: 58 ml/m^2 LVESVI: 25 ml/m^2 LVOT Diameter: 2.04 cm Right Atrium RA Vol. (Sngl Plane): 45.43 ml Right Ventricle RV Diast Dim.: 3.79 cm TAPSE: 2.82 cm Aorta Ao Root S of Qi.: 3.7 cm Ascending Aorta: 3 cm Doppler/Quantitative Measurements Mitral Valve MV Peak E-Wave: 0.66 m/s MV Peak A-Wave: 0.35 m/s E/A Ratio: 1.88 Peak Gradient: 1.75 mmHg Deceleration Time: 200.1 msec MV Tuan. Peak: Tissue Doppler E' Lateral Velocity: 0.1 m/s E/E': 6.86 Aortic Valve Peak Velocity: 1.22 m/s Mean Velocity: 0.88 m/s Peak Gradient: 5.99 mmHg Mean Gradient: 3.44 mmHg AV Area (continuity): 2.85 cm^2 AV VTI: 30.5 cm AV DVI: 0.87 LVOT Peak Velocity: 0.97 m/s Peak Gradient: 3.73 mmHg Mean Velocity: 0.69 m/s Mean Gradient: 2.09 mmHg LVOT Diameter: 2.04 cm LVOT VTI: 26.59 cm LVOT Area: 3.27 cm^2 LVOT SV:86.87 ml LVOT CO: 4.6 l/min LVOT CI: 2.61 l/min/m^2 RVOT RVOT VTI (PW): 19.7 cm Tricuspid Valve TR Velocity: 2.35 m/s TR Gradient: 22.1 mmHg Performing Organization Address City/[facility] Phone Number [facility] MKCKESSON CPACS Hepatitis B surface antibody (02/02/2018 9:53 AM CDT)Only the most recent of2 resultswithin the time period is included. Hep B S Ab <8.0 <8.0 mIU/mL [facility] Specimen Blood Performing Organization Address City/[facility] Phone Number [address] [address] [phone] CENTER US abdominal with doppler (11/09/2017 9:56 AM BOTTLE DEALER) Narrative Performed At FINAL REPORT [employer] Ultrasound of the Abdomen and Duplex Doppler. TECHNIQUE: Sonographic assessment of the abdomen was performed as well as a detailed duplex Doppler assessment of the liver including spectral wave forms and color-flow analysis of the major vascular structures. Clinical History: hepatic cirrhosis, on liver transplant list. Comparison study: December 22, 2016. Findings: The liver is coarse and nodular in echotexture with no focal masses. It measures 11.5 cm in length. There is no evidence of intra or extrahepatic biliary dilatation with the common bile duct measuring four mm. The main portal vein diameter is 1.2 cm. The cholelithiasis is seen with no sonographic evidence of acute cholecystitis. The spleen measures 12.0 cm, unremarkable. The pancreas is within normal limits. No ascites is present. The right kidney measures 10.1 cm and left kidney measures 10.6 cm, both within normal limits.No pleural effusions are seen.The proximal aorta and IVC are unremarkable. Doppler interrogation of the liver demonstrates a main portal vein diameter measuring 1.2 cm with a peak systolic velocity of 21 cm/sec. Hepatopetal inflow is seen in the right, left, main portal and splenic veins. The resistive indices in the proper, right and left hepatic arteries are 0.70, 0.63 and 0.67 respectively. Outflow with appropriate directionality is seen in the IVC, hepatic venous confluence as well as the right, middle and left hepatic veins. Impression: 1. Nodular, coarse liver consistent with the patient's known history of cirrhosis. No focal masses are seen. 2. Cholelithiasis. 3. Unremarkable hepatic Doppler. Signed: Yifan Jasso MD Report Verified Date/Time:11/09/2017 11:52:19 Reading Location: [address] Radiology Reading Room Procedure Note Interface, External Ris In - 11/09/2017 11:54 AM BOTTLE DEALER FINAL REPORT Ultrasound of the Abdomen and Duplex Doppler. TECHNIQUE: Sonographic assessment of the abdomen was performed as well as a detailed duplex Doppler assessment of the liver including spectral wave forms and color-flow analysis of the major vascular structures. Clinical History: hepatic cirrhosis, on liver transplant list. Comparison study: December 22, 2016. Findings: The liver is coarse and nodular in echotexture with no focal masses. It measures 11.5 cm in length. There is no evidence of intra or extrahepatic biliary dilatation with the common bile duct measuring four mm. The main portal vein diameter is 1.2 cm. The cholelithiasis is seen with no sonographic evidence of acute cholecystitis. The spleen measures 12.0 cm, unremarkable. The pancreas is within normal limits. No ascites is present. The right kidney measures 10.1 cm and left kidney measures 10.6 cm, both within normal limits. No pleural effusions are seen. The proximal aorta and IVC are unremarkable. Doppler interrogation of the liver demonstrates a main portal vein diameter measuring 1.2 cm with a peak systolic velocity of 21 cm/sec. Hepatopetal inflow is seen in the right, left, main portal and splenic veins. The resistive indices in the proper, right and left hepatic arteries are 0.70, 0.63 and 0.67 respectively. Outflow with appropriate directionality is seen in the IVC, hepatic venous confluence as well as the right, middle and left hepatic veins. Impression: 1. Nodular, coarse liver consistent with the patient's known history of cirrhosis. No focal masses are seen. 2. Cholelithiasis. 3. Unremarkable hepatic Doppler. Signed: Yifan Jasso MD Report Verified Date/Time: 11/09/2017 11:52:19 Reading Location: [address] Radiology Reading Room Performing Organization Address City/[facility] Phone Number RIS Zinc (11/03/2017 10:22 AM BOTTLE DEALER) Zinc 47 (L) 60 - 130 mcg/dL [facility] Comment: INCORPORATED This test was developed and its analytical performance characteristics have been determined by [facility]. It has not been cleared or approved by the US Food and Drug Administration. This assay has been validated pursuant to the CLIA regulations and is used for clinical purposes. Specimen Blood Narrative Performed At Performing Lab [facility] *[facility], [address] [place] [phone] Andreas Hernández MD, PhD Performing Organization Address City/State/Zipcode Phone Number [employer] [place], [place] [address] INCORPORATED [phone] [facility] Alpha fetoprotein (AFP), tumor marker (11/03/2017 10:22 AM BOTTLE DEALER) Alpha-Fetoprotein 3.3 <10.0 ng/mL [facility] Specimen Blood Performing Organization Address City/State/Zipcode Phone Number [facility] [address] [place] [address] [phone] CENTER Magnesium (11/03/2017 10:22 AM BOTTLE DEALER) Magnesium 1.6 1.6 - 2.6 mg/dL [facility] Specimen Blood Performing Organization Address City/State/Zipcode Phone Number [facility] [address] [place] [address] [phone] CENTER after 09/16/2017 Insurance Payer Benefit Plan / Group Subscriber ID Type Phone Address [place] xxxxxxxxx Advance Directives Patient has advance care planning documents, and code status on file. For more information, please contact:[facility] [place], [place] [phone] Code Status Date Activated Date Inactivated Comments Full Code 04/09/2018 7:09 AM 04/09/2018 9:06 PM This code status was determined by: Patient Full Code 09/04/2017 8:13 PM 09/06/2017 4:10 PM This code status was determined by: Patient Full Code 07/17/2017 2:41 PM 07/20/2017 8:02 PM This code status was determined by: Patient Full Code 12/21/2016 1:23 PM 12/24/2016 3:54 PM This code status was determined by: Patient Full Code 05/11/2016 1:20 PM 07/02/2016 8:33 PM This [id number] was [id number] by: [id number]
--- OUTSIDE RECORDS SUMMARY | 2018-09-17 00:13 | XMS REPORT | Continuity of Care Document ---
:1965 Author Organization Interface Problems Problem Status Onset Classification Date Comments Source Date Reported I63.39 - CEREBRAL Active 06/24/20 [facility] INFARCTION DUE TO 17 [place] THR I63.39 Active 06/24/20 [facility] DOPPLER 17 [place] 2-D/ I63.39 / Active 06/05/20 R56.9/ M54. 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 [facility] cirrhosis [facility] Asthma Active Problem 03/20/2018 [facility] Right cervical Active Problem 03/20/2018 [facility] radiculopathy [facility] Cervical Active Problem 03/20/2018 [facility] spondylosis with Neuro, myelopathy Medical Group Chest pain Resolved Problem 03/20/2018 [facility] Alcoholism in Active Problem 03/20/2018 [facility] remission [facility] Cirrhosis of liver Resolved Problem 03/20/2018 [facility] Long-term use of Active Problem 03/20/2018 [facility] high-risk Neuro, medication Medical Group H/O: Resolved Problem 03/20/2018 in 2010 [facility] stroke<sup>1</sup> also in Meghna Lee M [facility] Neuro Hx of brain Resolved Problem 03/20/2018 in 2015 [facility] surgery<sup>2</sup Meghna Lee > Meghna Marie [facility] Neuro Hemiparesis Active Problem 03/20/2018 [facility] affecting right Neuro, side as late Medical effect of Group cerebrovascular accident Nerve Resolved Problem 03/20/2018 right arm [facility] damage<sup>3</sup> in 2014 [place],[facility][note 3] Neuro Primary insomnia Active Problem 03/20/2018 [facility], Medical Group Dislocation of Resolved Problem 03/20/20182014 [facility] cervical [place],M vertebrae<sup>4</s H up> [facility][note 3] Neuro Asthma Active Problem 01/17/2018 OPID [facility], Medical Group Chest pain Resolved Problem 01/17/2018 [facility], Medical Group H/O: Resolved Problem 01/17/2018 in 2010 [facility] stroke<sup>1</sup> also in [address], Medical Group Hx of brain Resolved Problem 01/17/2018 in 2015 [facility] surgery<sup>2</sup [place],[facility], Medical Group Nerve Resolved Problem 01/17/2018 right arm OPID damage<sup>3</sup> in 2014 [facility], Medical Group Dislocation of Resolved Problem 01/17/20182014 OP[facility], vertebrae<sup>4</s H up> [facility], Medical Group Medications Medication Details Route Status Patient Ordering Order Source Instructions Provider Date Hydroxyzine 25 mg=1 tab, Active 01/14/ Hydrochloride PO, Bedtime, 2017 Medical 25 MG Oral as needed for Group Tablet sleep / insomnia, # 90 tab, 1 Refill(s), Pharmacy: [facility]/pharmacy #[id number] Levetiracetam 1,000 mg=1 Active 11/11/ [facility] 1000 MG Oral tab, PO, BID, 2018 Neuro Tablet # 180 tab, 3 Refill(s), Pharmacy: [facility]/pharmacy #[id number] rifaximin 550 550 mg=1 tab, Active 11/11/ [facility] MG Oral Tablet PO, BID, 0 2017 Neuro [XIFAXAN] Refill(s) Calcium 600 +D 1 tab, PO, Active 11/11/ [facility] oral tablet TID, 0 2018 Neuro Refill(s) Vitamin D2 50,000 Active [facility] 50,000 intl IntlUnit=1 2018 Neuro units oral cap, PO, capsule qWeek, 0 Refill(s) Vitamin D3 400 400 IntlUnit=1 Active 11/11/ [facility] intl units oral cap, PO, 2018 Neuro capsule Daily, 0 Refill(s) aspirin 325 mg 325 mg, 1 tab, PO No [place] 09/11[facility] [place] tablet Route: PO, Longer 2010 [facility] Drug form: Active TAB, Daily, Priority: Routine, Start date: 09/11/11 9:00:00, Duration: 30 day, Stop date: 10/10/11 9:00:00 azithromycin 250 mg, 1 tab, PO No Antoine 09/11[facility] [place] Route: PO, Longer 2010 [facility] Drug form: Active TAB, [id number], Start date: 09/11/11 9:00:00, Duration: 4 doses or times, Stop date: 09/14/11 9:00:00 predniSONE 40 mg, 2 tab, PO No Antoine 09/11[facility] [place] Route: PO, Longer 2010 [facility] Drug form: Active TAB, Daily, Start date: 09/11/11 9:00:00, Duration: 30 day, Stop date: 10/10/11 9:00:00 aspirin 81 mg, 1 tab, PO No Antoine 09/11[facility] [place] Route: PO, Longer 2010 [facility] Drug form: Active ECTAB, Daily, Start date: 09/11/11 9:00:00, Duration: 30 day, Stop date: 10/10/11 9:00:00 Saline Flush 5 ml, Route: IVP No [facility] 09/11[facility] [place] 0.9% IVP, Drug Longer 2010 [facility] Form: INJ, Active Q12H, Start date: 09/10/11 21:00:00, Duration: 30 day, Stop date: 10/10/11 9:00:00 lisinopril 10 10 mg, 1 tab, PO Active Antoine 09/11[facility] [place] mg oral tablet PO, Daily, 2010 Hospital tab, Substitution Allowed, TAB Nebulizer 1 ea, [facility] Active Antoine 09/11[facility] [place] ONCALL, 1 ea, 2010 Hospital Substitution Allowed, Maintenance Advair Diskus 1 puff, INHALATION Active Antoine 09/11/ [place] 250 mcg-50 mcg INHALATION, 2010 Hospital inhalation BID, 60 puff, powder Substitution Allowed, Maintenance predniSONE 10 See Active Antoine 09/11/ [place] mg oral tablet Instructions, 2010 Hospital 15 tab, Substitution Allowed, 2 po for 5 days 1 po for 5 days2 po for 5 days 1 po for 5 days Carafate 1 g/10 1 gm, 10 mL, PO Active Antoine 09/11/ [facility] [place] mL oral PO, QID, 60 2010 Hospital suspension mL, Substitution Allowed, SUSP Protonix 40 mg 40 mg, 1 tab, PO Active Antoine [place] oral enteric PO, Before 2010 Hospital coated tablet Dinner, 30 tab, Substitution Allowed, ECTAB azithromycin 250 mg, 1 tab, PO Active Antoine 09/11/ [place] 250 mg oral PO, [id number], 4 2010 [facility] tablet tab, Substitution Allowed, TAB aspirin 81 mg 81 mg, 1 tab, PO Active Antoine [place] tablet, enteric PO, Daily, 100 2010 Hospital coated tab, Substitution Allowed, ECTAB albuterol 2.49 mg, NEB, NEB Active Antoine [place] 0.042% RQ6H, 60 unit, 2010 Hospital inhalation Substitution solution Allowed, SOLN Protonix 40 mg, 1 tab, PO No Antoine [facility] [place] Route: PO, Longer 2010 [facility] Drug form: Active ECTAB, Before [place], Start date: 09/10/11 16:30:00, Duration: 30 day, Stop date: 10/09/11 16:30:00 albuterol 2.49 mg, 3 mL, NEB No Antoine [place] 0.083% Route: NEB, Longer 2010 [facility] inhalation Drug form: Active solution SOLN, RQ6H, Start date: 09/10/11 14:00:00, Duration: 30 day, Stop date: 10/10/11 8:00:00 Non-Formulary INHALATION, INHALATION No [place] Home Medication Daily, Longer 2010 Hospital Substitution Active Allowed Diovan 160 mg, 1 tab, PO No Manhas [place] Route: PO, Longer 2010 Hospital Drug form: Active TAB, Daily, Start date: 09/10/11 13:12:00, Duration: 30 day, Stop date: 10/10/11 9:00:00 Carafate 1 g/10 1 gm, 10 mL, PO No Antoine 09/10[facility] [place] mL oral Route: PO, Longer 2010 Hospital suspension Drug form: Active SUSP, QID, Start date: 09/10/11 13:00:00, Duration: 30 day, Stop date: 10/10/11 9:00:00 influenza virus 0.5 ml, Route: IM No Antoine 09/10[facility] [place] vaccine IM, Drug Form: Longer 2010 Hospital intramuscular INJ, ONCALL, Active suspension Start date: 09/10/11 13:00:00, Duration: 30 day, Stop date: 10/10/11 12:59:00 Pneumovax 23 0.5 ml, Route: IM No Antoine 09/10/ [place] IM, Drug Form: Longer 2010 Hospital INJ, ONCALL, Active Start date: 09/10/11 13:00:00, Duration: 0 predniSONE 60 mg, 3 tab, PO No Antoine 09/10[facility] [place] Route: PO, Longer 2010 [facility] Drug form: Active TAB, ONCE, Start date: 09/10/11 12:36:00, Stop date: 09/10/11 12:36:00 Saline Flush 5 ml, Route: IVP No Antoine 09/10[facility] [place] 0.9% IVP, Drug Longer 2010 [facility] Form: INJ, Active PRN, PRN Line Flush, Start date: 09/10/11 12:27:00, Duration: 30 day, Stop date: 10/10/11 12:26:00 nitroglycerin 0.4 mg, 1 tab, SL No Antoine 09/10[facility] [place] SL Tab Route: SL, Longer 2010 Hospital Drug form: Active TAB, Q5Min, PRN Chest Pain, Start date: 09/10/11 12:27:00, Duration: 3 doses or times, Stop date: Limited # of times azithromycin 500 mg, 2 tab, PO No Antoine [place] Route: PO, Longer 2010 Hospital Drug form: Active TAB, ONCE, Start date: 09/10/11 12:23:00, Stop date: 09/10/11 12:23:00, Initial DoseInitial Dose predniSONE 60 mg, Route: PO No Antoine [place] PO, Drug form: Longer 2010 Hospital TAB, STAT, Active Start date: 09/10/11 12:23:00, Stop date: 09/10/11 12:23:00 aspirin 325 mg 325 mg, 1 tab, PO No [facility] [place] tablet Route: PO, Longer 2010 Hospital Drug form: Active TAB, ONCE, Priority: STAT, Start date: 09/10/11 6:55:00, Stop date: 09/10/11 6:55:00 Saline Flush 5 ml, Route: IVP No [facility] [place] 0.9% IVP, Drug 2010 Hospital Form: INJ, Active PRN, PRN Line Flush, Start date: 09/10/11 6:55:00, Duration: 30 day, Stop date: 10/10/11 6:54:00 Allergies, Adverse Reactions, Alerts Substance Category Reaction Severity Reaction Status Date Comments Source type Reported Immunizations Immunization Date Given Site Status Last Updated Comments Source influenza virus 01/14/2018 completed [facility] vaccine, live, Neuro, trivalent Medical Group Results Order Name Results Value Reference Date Interpretation Comments Source Range Neck wo Neck wo Study: Neck wo contrast MRA 07/06 - [facility] contrast contrast MRA - [facility] Clinical Indication: I63.39 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 MRA of the brain from 06/25/2017. Technique: Magnetic resonance angiography of the neck was performed without gadolinium contrast with time of flight technique. 3-D maximum intensity projection images were obtained. FINDINGS: The origins of the right brachiocephalic artery, right common carotid artery, right subclavian artery, right vertebral artery, left common carotid artery, left subclavian artery and left vertebral artery are widely patent. Bilateral common carotid arteries are widely patent. Small, irregular atherosclerotic plaque of the right carotid bulb is seen. Small to moderate-sized atherosclerotic plaque of the left carotid bulb is seen producing up to 25% luminal narrowing. The bila teral internal carotid arteries are patent without significant stenosis by NASCET criteria. Bilateral external carotid arteries are patent. Bilateral vertebral arteries are widely patent without stenosis. The visualized intracranial segments of the vertebral arteries are widely patent. The source images show no evidence of carotid or vertebral artery dissection. Any reported ICA stenoses directly reference the distal internal carotid diameter as the denominator for stenosis measurement. (NASCET criteria) IMPRESSION: 1. Small to moderate-sized atherosclerotic plaque of the left carotid bulb producing up to 25% luminal narrowing. 2. Mild atherosclerotic disease of the right carotid bulb without significant stenosis. 3. No significant vertebral artery stenosis. 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 A prior carotid imaging studies available for comparison or review. An magnetic resonance imaging of the brain of 06/25/2017 was reviewed. TECHNIQUE: Santo-scale, color Doppler and spectral Doppler of the carotid arteries was performed. Any reported ICA stenoses indirectly reference the distal internal carotid diameter as the denominator for the sten osis measurement, utilizing consensus panel criteria. FINDINGS: * SANTO SCALE AND COLOR-FLOW: There is moderate plaquing involving the right carotid bulb and proximal internal carotid artery. Santo scale and color- flow imaging, there appears to be a mild (less than 3 0%) stenosis. There is fairly extensive calcified plaque involving the distal left common carotid artery, carotid bulb, and proximal internal carotid artery. There appears to be a mild (less than 30%) s tenosis. There is no evidence of a hemodynamically significant stenosis involving either internal carotid artery by grayscale, color flow, or velocity findings. * VELOCITY MEASUREMENTS RIGHT CAROTID SYSTEM : -Right internal carotid artery peak systolic velocity: Within normal limits, 73 cm/sec -ICA/CCA ratio (systolic velocity ratio): Within normal limits, 0.9 LEFT CAROTID SYSTEM : -Left internal carotid artery peak systolic velocity: Within normal limits , 90 cm/sec -ICA/CCA ratio (systolic velocity ratio): Within normal limits, 1.0 * VERTEBRAL ARTERIES: Both vertebral arteries were demonstrated. There is antegrade flow within both vertebral arteries. IMPRESSION: 1. There is plaquing involving both common carotid bulbs and proximal internal carotid arteries in the distal left common carotid artery. There appear to be mild (less than 30%) stenoses of both international coordinator al carotid arteries by santo scale and color-flow imaging. There is no evidence for hemodynamically significant stenosis by velocity criteria or santo scale/color flow imaging. Consensus panel Doppler US criteria for diagnosis of ICA stenosis: Stenosis (%) ICA PSV (cm/sec) ICA/CCA ratio -- <50 <125 <2.0 50-69 125-230 2.0-4.0 >70 but less than >230 >4.0 near occlusion Near occlusion High, low, or Variable undetectable SL: [id number] Brain wo Brain wo Patient Name: AFSHAN GIBSON 06/25 - [facility] contrast contrast MRA /2016 - [place] MRA : 1965; Age: 52 years y/o Male MR: [id number] Read by: Jf Antonio MD Dictated Date/time: 06/25/17 09:05 Electronically Signed by: Jf Antonio MD 06/25/17 09:09 FINAL REPORT Study: Brain wo contrast MRA 06/25/2017 8:09 AM CDT Ordering Physician: June Dotson MD Clinical Indication: I63.39 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 Technique: Magnetic resonance angiography of the [place] was performed without contrast. 3D reconstructed images were created. FINDINGS: The petrous, cavernous, ophthalmic and supraclinoid portions of the bilateral internal carotid arteries have normal caliber. The A1 and A2 segments of the bilateral anterior cerebral arteries are unremarkable. Bilateral middle cerebral arteries and its proximal branches have normal caliber. Bilateral vertebral arteries, basilar artery, and posterior cerebral arteries are unremarkable. Small left P-comm is present. Right P-comm is not visualized. There is no aneurysm or vascular malformation. Postoperative change within the right frontal lobe with cystic encephalomalacia and surrounding gliosis in the frontal lobe communicating with the frontal horn of the right lateral ventricle. IMPRESSION: 1. Grossly normal [place]. 2. No definite cerebral aneurysm detected. SL: [id number] Brain wo Brain wo Study: Brain wo contrast MRI 06/16 - [facility] contrast contrast /2016 - [facility] Clinical Indication: Z86.79 Personal history of other diseases of the circulatory system - Z86.79 Personal history of other diseases of the circulatory system Read by: Rashard Herrera MD Dictated Date/time: 06/17/17 07:44 Electronically Signed by: Rashard Herrera MD 06/17/17 07:47 FINAL REPORT Comparison: None TECHNIQUE: Multiplanar, multisequence magnetic resonance imaging of the brain was performed without the administration of intravenous gadolinium contrast. FINDINGS: BRAIN PARENCHYMA: Remote postoperative changes of the right frontal calvarium are seen. There is a large area of cystic encephalomalacia with surrounding gliosis in the underlying right frontal lobe, co mmunicating with the frontal horn of the right lateral ventricle. Peripheral hypointense signal on the gradient echo images is seen. Scattered mild chronic microvascular ischemic changes are noted. Ther e is no diffusion weighted imaging or ADC map abnormality to suggest acute/ subacute ischemia. No acute intracranial hemorrhage, mass effect, midline shift , or extra-axial fluid collection is seen. The corpus callosum appears normal. CEREBELLOPONTINE REGIONS AND SKULL BASE: The cerebellopontine angles appear unremarkable. The skull base, craniocervical junction, and brainstem are normal. The optic chiasm is normal. The sellar and pineal regions are unremarkable. VENTRICLES: The ventricles are normal in size and configuration. The basilar cisterns are normal. VESSELS: The venous sinuses are grossly unremarkable. The expected intracranial flow voids are present. ORBITS, VISUALIZED PARANASAL SINUSES AND MASTOIDS: The visualized orbits and paranasal sinuses are unremarkable. The mastoid air cells are clear. IMPRESSION: 1. Remote postoperative changes of the right frontal lobe with large area of cystic encephalomalacia in the right frontal lobe, communicating with the frontal horn of the right lateral ventricle. 2. Mild chronic microvascular ischemic changes. 3. No acute intracranial abnormality. SL: [id number] Spine Spine Study: Spine cervical wo contrast MRI 06/16 - [facility] cervical wo cervical wo /2016 - [place] contrast contrast MRI MRI Clinical Indication: M47.12 Other spondylosis with myelopathy, cervical region - M47.12 Other spondylosis with myelopathy, cervical region Read by: Rashard Herrera MD Dictated Date/time: 06/17/17 07:48 Electronically Signed by: Rashard Herrera MD 06/17/17 07:53 FINAL REPORT Comparison: None TECHNIQUE: Multiplanar, multisequence magnetic resonance imaging of the cervical spine was performed without the administration of intravenous gadolinium contrast. FINDINGS: There is grade 1 retrolisthesis of C3 over C4 by 2 mm. Additional mild multilevel grade 1 retrolisthesis of C5 over C6 and C6 over C7 by 1 mm is also seen. The prevertebral soft tissues, atlanto-dental interspace, and craniocervical junction are within normal limits. The visualized brainstem region is unremarkable. The cervical spinal cord is normal in size and signal. The discs are desiccated throughout the cervical spine. Severe multilevel disc height loss with Modic type I degenerative endplate change at C3-C4, C5-C6 , and C6-C7 is seen. DISC SPACES: C2-C3: No significant disc bulge or protrusion is seen. The facets are intact. There is no spinal canal stenosis or neural foraminal narrowing. C3-C4: Large circumferential disc osteophyte complex is seen. Facets are intact. There is mild spinal canal stenosis with thecal sac measuring 9 mm AP dimension. Severe left and mild right neural foraminal narrowing is present. C4-C5: 2 mm diffuse disc bulge is seen. Facets are intact. There is no spinal canal stenosis or neural foraminal narrowing. C5-C6: Large circumferential disc osteophyte complex with superimposed uncovertebral arthrosis is seen. Facets are intact. There is mild spinal canal stenosis with the thecal sac measuring 9 mm AP dimen debby. Severe bilateral neural foraminal narrowing is present. C6-C7: Large circumferential disc osteophyte complex with superimposed uncovertebral arthrosis is seen. Facets are intact. No spinal canal stenosis is seen. There is severe bilateral neural foraminal narrowing, left greater than right. C7-T1: Negative for significant disc bulge or protrusion. Mild facet arthrosis is seen. There is no spinal canal stenosis or neural foraminal narrowing. IMPRESSION: 1. Multilevel degenerative changes of the cervical spine with mild spinal canal stenosis and severe left with mild right neural foraminal narrowing at C3- C4. 2. C5-C6 mild spinal canal stenosis with severe bilateral neural foraminal narrowing. 3. C6-C7 severe bilateral neural foraminal narrowing, left greater than right. SL: [id number] CHEMISTRY Total CK 137 U/L - 09/10 [facility] Hospital CHEMISTRY Troponin-I null 0.00 - 09/10 Normal [facility] 0. Hospital CHEMISTRY CK MB 0.8 ng/mL 0.5 - 3.6 09/10 Normal Hospital CHEMISTRY CK MB Index 0.6 0.0 - 2.5 09/10 [facility] Hospital CHEMISTRY Troponin-I null 0.00 - 09/10 Normal [facility] 0. Hospital CHEMISTRY Total CK 166 U/L - 09/10 Normal Hospital CHEMISTRY CK MB Index null 0.0 - 2.5 09/10 [facility] Hospital CHEMISTRY CK MB null 0.5 - 3.6 09/10 [facility] Hospital CHEMISTRY Total CK 132 U/L - 09/10 [facility] Hospital CHEMISTRY Troponin-I null 0.00 - 09/10 Normal [facility] 0. Hospital CHEMISTRY CK MB 0.6 ng/mL 0.5 - 3.6 09/10 Normal Hospital CHEMISTRY CK MB Index 0.5 0.0 - 2.5 09/10 Normal Hospital CHEMISTRY Amylase Lvl 72 U/L 25 - 115 09/10 [facility] CHEMISTRY Lipase Lvl 366 U/L 73 - 393 09/10 [facility] CHEMISTRY A/G Ratio 0.9 0.7 - 1.6 09/10 [facility] CHEMISTRY Globulin 4.1 g/dL 2.0 - 4.0 09/10 [facility] CHEMISTRY AGAP 13.6 meq/L 10.0 - 09/10 Normal [place] 20.0 [facility] CHEMISTRY B/C Ratio 8 6 - 25 09/10 Normal Hospital CHEMISTRY Potassium 3.6 meq/L 3.5 - 5.1 09/10 Normal [facility] Lvl Hospital CHEMISTRY Sodium Lvl 141 meq/L 135 - 145 09/10 [facility] CHEMISTRY Chloride Lvl 106 meq/L 95 - 109 09/10 [facility] Hospital CHEMISTRY CO2 25 meq/L 24 - 32 09/10 [facility] CHEMISTRY Total 7.7 g/dL 6.4 - 8.4 09/10 [facility] CHEMISTRY Calcium Lvl 8.4 mg/dL 8.5 - 10.5 09/10 LOW Hospital CHEMISTRY AST 35 U/L 0 - 37 09/10 [facility] CHEMISTRY Alk Phos 68 U/L 39 - 136 09/10 [facility] CHEMISTRY Bili Total 0.5 mg/dL 0.2 - 1.3 09/10 Normal Hospital CHEMISTRY Albumin Lvl 3.6 g/dL 3.5 - 5.0 09/10 Normal Hospital CHEMISTRY ALT 30 U/L 0 - 65 09/10 [facility] Hospital CHEMISTRY Creatinine 1.0 mg/dL 0.5 - 1.4 09/10 Normal [facility] Lvl Hospital CHEMISTRY BUN 8 mg/dL 7 - 22 09/10 Normal Hospital CHEMISTRY Glucose Lvl 77 mg/dL 09/10 NA 1Interpretive Data: Hospital Reference Ranges : 0 - 7 days : 41 - 90 mg/dL7 days - 150 yrs : 70 - 99 mg/dL (fasting), based on the clinical recommendatio ns of the [place] [employer]. HEMATOLOGY Basophils # 0.0 K/CMM 0.0 - 0.2 09/10 Normal Hospital HEMATOLOGY Eosinophils 3.1 % 0.0 - 4.0 12/ Normal [facility] [place] /2010 Hospital HEMATOLOGY Eosinophils 0.1 K/CMM 0.0 - 0.5 09/10 Normal [facility] [place] # /2010 Hospital HEMATOLOGY Lymphocytes 1.1 K/CMM 1.0 - 5.5 09/10 Normal [place] # /2010 Hospital HEMATOLOGY Monocytes # 0.3 K/CMM 0.0 - 0.8 09/10 Normal [place] /2010 Hospital HEMATOLOGY Basophils 0.4 % 0.0 - 1.0 09/10 Normal [facility] [place] /2010 Hospital HEMATOLOGY Segs-Bands # 1.7 K/CMM 1.5 - 8.1 09/10 [facility] [place] HEMATOLOGY Monocytes 10.2 % 2.0 - 12.0 09/10 [facility] [place] HEMATOLOGY Segs 52.7 % 45.0 - 09/10 Normal [place] 75.0 Hospital HEMATOLOGY Lymphocytes 33.6 % 20.0 - 09/10 [facility] HEMATOLOGY Platelet 177 K/CMM 133 - 450 09/10 Normal [facility] HEMATOLOGY RDW 12.3 % 11.5 - 09/10 Normal [facility] 14[facility]5 [facility] HEMATOLOGY MPV 8.8 fL 7.4 - 10.4 09/10 Normal [facility] HEMATOLOGY Hct 43.1 % 42.0 - 09/10 Normal [facility] 54.0 [facility] HEMATOLOGY Hgb 15.1 g/dL 14.0 - 09/10 Normal [facility] 18[facility]0 [facility] HEMATOLOGY MCV 94.2 fL 80.0 - 09/10 HI [facility] 94.0 [facility] HEMATOLOGY MCHC 35.0 g/dL 32.0 - 09/10 Normal [facility] 36.0 /2010 Hospital HEMATOLOGY MCH 32.9 pg 27.0 - 09/10 HI [facility] 31[facility]0 [facility] HEMATOLOGY WBC 3.3 K/CMM 3.7 - 10.4 09/10 LOW [facility] HEMATOLOGY RBC 4.57 M/CMM 4.70 - 09/10 LOW [facility] 6.10 [facility] HEMATOLOGY INR 0.98 0.85 - 09/10 Normal 2Interpretive [facility] 1. Data: Hospital RECOMMENDED RANGES FOR PROTIME INR: 2.0-3.0 for most medical and surgical thromboemboli c states. 2.5-3.5 for artificial heart valves and recurrent embolism.INR SHOULD BE USED ONLY FOR PATIENTS ON STABLE ANTICOAGULANT THERAPY. HEMATOLOGY PTT 29.5 s 22.9 - 09/10 Normal 3Interpretive [facility] 35.8 /2010 Data: [facility] Therapeutic Range: 57 - 92 Seconds HEMATOLOGY PT 13.0 s 12.0 - 09/10 Normal [facility] 14.7 [facility] Vital Signs Vital Sign Value Date Comments Source Weight 64.688 01/14/2018 [facility] BMI Calculated 22.34 01/14/2018 [facility] Systolic (mm Hg) 107 01/14/2018 [facility] Diastolic (mm Hg) 66 01/14/2018 [facility] Respitory Rate 14 01/14/2018 [facility] Temperature Oral (F) 98.8 F 01/14/2018 [facility] Heart Rate 80 01/14/2018 [facility] Height 170.18 cm 01/14/2018 [facility] Weight 66.932 11/11/2017 [facility] Heart Rate 60 11/11/2017 [facility] Systolic (mm Hg) 125 11/11/2017 [facility] Diastolic (mm Hg) 78 11/11/2017 [facility] Height 170.18 cm 06/02/2012 [facility] Weight 54.545 06/02/2012 [facility] Respitory Rate 20 09/11/2011 [facility] Systolic (mm Hg) 157 09/11/2011 [facility] Diastolic (mm Hg) 94 09/11/2011 [facility] Temperature Oral (F) 97.4 F 09/11/2011 [facility] Heart Rate 89 09/11/2011 [facility] Diastolic (mm Hg) 84 09/10/2011 [facility] Systolic (mm Hg) 120 09/10/2011 [facility] Heart Rate 74 09/10/2011 [facility] Respitory Rate 20 09/10/2011 [facility] Temperature Oral (F) 98.0 F 09/10/2011 [facility] Diastolic (mm Hg) 102 09/10/2011 [facility] Systolic (mm Hg) 162 09/10/2011 [facility] Heart Rate 68 09/10/2011 [facility] Respitory Rate 18 09/10/2011 [facility] Temperature Oral (F) 96.0 F 09/10/2011 [facility] Weight 65.909 09/10/2011 [facility] Height 170.18 cm 09/10/2011 [facility] Height 170.18 cm 09/10/2011 [facility] Weight 65.909 09/10/2011 [facility] Encounters Location Location Encounter Encounter Reason Attending ADM DC Status Source Details Type Number For Provider Date Date Visit [facility] [id number] CHEST LEONILA ANTOINE 09/10 09/10 Active [facility] 1 PAIN /2010 [facility] [id number] BRITTNI 06/01 06/01 Active [facility] 2 MOORE /2011 Hospital Outpatient [id number] [facility] 06/[address] [facility] 0 MAURI [facility] [place] Outpatient [id number] [facility] 06/[address] [facility] 1 MAURI Gabino Ngo [facility] Outpatient [id number] [facility] 06/10 06/11 [place] 3 [facility] Outpt Diag [id number] [facility] 06/16 06/17 [facility] 1 [facility] Outpt Diag [id number] [facility] 06/25 06/26 [facility] 2 Maur[facility] Outpatient [id number] [place] 06/25 06/26 [facility] [place] [facility] [id number] [facility] 07/06 07/07 [facility] 4 Mauri [facility] Outpatient [id number] [place] 07/[address] [facility] 2 [place] Outpatient [id number] [place] 11/[address] [facility] 3 [place] [facility] Outpatient [id number] [place] 11/11 11/12 [facility] 3 [facility] Phone [id number] 11/18 11/20 [facility] Message [facility] Phone [id number] 11/30 12/02 [facility] Message [facility] Phone [id number] 12/11 12/13 [facility] Message [facility] Phone [id number] 12/11 12/13 [facility] [id number] [facility] 01/14 [facility] [id number] [facility] 01/14 01/15 [facility] Outpatient [id number] [place] 07/14 Active [facility] [place] Outpatient [id number] KENNEDI 11/11 Active [facility] [place] OD [id number] 334.3 - EDWARD Cancel OPID 0 CEREBELL DION SOARES ATAX Procedures Procedure Code Date Perfomer Comments Source Colonoscopy [id number] 06/21/2017 [facility] Colonoscopy [id number] 06/21/2017 [facility] Cervical epidural [id number] 09/21/2003 [facility] steroid injection Cervical epidural [id number] 09/21/2003 Medical steroid injection Group Operation on [id number] due to stroke [facility] brain<sup>1</sup> in 2015 Operation on [id number] due to stroke Medical brain<sup>1</sup> in 2016 Group
--- OUTSIDE RECORDS SUMMARY | 2018-09-17 00:14 | XMS REPORT | Summary of Care ---
:1965 Author Organization [facility] Address [address] [place] [address]- Encounter HQ Ashok(DOMINIC) [id number] Date(s): 11/11/17 - 11/11/17 [facility] [address] [place] [address]- [phone] Discharge Disposition: Home or Self Care Attending Physician: Brian Munroe MD Vital Signs Most recent to oldest [Reference Range]: 1 Blood Pressure [90-140/60-90 mmHg] 125/78 mmHg (11/11/17 3:24 PM) Peripheral Pulse Rate [60-100 bpm] 60 bpm (11/11/17 3:24 PM) Weight 66.932 kg (11/11/17 3:24 PM) Problem List Condition Effective Dates Status Health Status Informant Alcoholic cirrhosis(Confirmed) Active Asthma(Confirmed) Active Right cervical Active radiculopathy(Confirmed) Cervical spondylosis with Active myelopathy(Confirmed) Chest pain(Confirmed) Resolved 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 Cirrhosis of liver(Confirmed) Resolved Long-term use of high-risk Active medication(Confirmed) H/O: stroke(Confirmed)1 Resolved Hx of brain surgery(Confirmed)2 Resolved Hemiparesis affecting right side as Active late effect of cerebrovascular accident(Confirmed) Nerve damage(Confirmed)3 Resolved Primary insomnia(Confirmed) Active Dislocation of cervical Resolved vertebrae(Confirmed)4 1in 2010 also in [id number] arm in [id number] Allergies, Adverse Reactions, Alerts Substance Reaction Severity Status NKDA Active Medications Calcium 600 +D oral tablet 1 tab, PO, TID, 0 Refill(s) Start Date: 11/11/17 Status: OrderedlevETIRAcetam 1000 mg oral tablet 1,000 mg=1 tab, PO, BID, # 180 tab, 3 Refill(s), Pharmacy: [facility]/pharmacy #[id number] Start Date: 11/11/17 Stop Date: 11/06/18 Status: OrderedVitamin D2 50,000 intl units oral capsule 50,000 IntlUnit=1 cap, PO, qWeek, 0 Refill(s) Start Date: 11/11/17 Status: OrderedVitamin D3 400 intl units oral capsule 400 IntlUnit=1 cap, PO, Daily, 0 Refill(s) Start Date: 11/11/17 Status: OrderedXifaxan 550 mg oral tablet 550 mg=1 tab, PO, BID, 0 Refill(s) Start Date: 11/11/17 Status: Ordered Results No data available for this section Immunizations Given and Recorded Vaccine Date Status Refusal Reason influenza virus vaccine, live, trivalent 01/14/18 Recorded Procedures Procedure Date Related Diagnosis Body Site Status Colonoscopy 06/2017 Completed Cervical epidural steroid injection 09/2003 Completed Operation on brain1 Completed 1due to stroke in 2016 Social History Social History Type Response Substance Abuse Use: None. Employment/School Status: disability. Work/School description: disability. Highest education level: University degree(s). Alcohol Past Smoking Status Former smoker; Exposure to Tobacco Smoke None; Cigarette Smoking Last 365 Days No; Reg Smoking Cessation Counseling Yes entered on: 01/14/18 Assessment and Plan No data available for this section
--- OUTSIDE RECORDS SUMMARY | 2018-09-17 00:14 | XMS REPORT | CCD ---
:1965 Author Organization [facility] Care Team Providers Name Role Phone Tiana Chung Consulting Provider Allergies, Adverse Reactions, Alerts Substance Reaction Status NKDA Active Problem List Condition Effective Dates Status Asthma Active Chest pain Active Vital Signs Most recent to oldest [Reference Range]: 1 Height 170.18 cm (06/01/2012 21:35:00) Weight 54.545 kg (06/01/2012 21:35:00)
--- OUTSIDE RECORDS SUMMARY | 2018-09-17 00:14 | XMS REPORT | CCD ---
:1965 Author Organization [facility] Care Team Providers Name Role Phone Roldan Pandya Consulting Provider Matt Nails Referring Provider Allergies, Adverse Reactions, Alerts Substance Reaction Status NKDA Active Problem List Condition Effective Dates Status Asthma Active Chest pain Active Medications Medication Instructions Start Date End Date Status aspirin 325 mg tablet 325 mg, 1 tab, Route: 09/11/2011 09/10/2011 Discontinued PO, Drug form: TAB, Daily, Priority: Routine, Start date: 09/11/11 9:00:00, Duration: 30 day, Stop date: 10/10/11 9:00:00 Carafate 1 g/10 mL oral 1 gm, 10 mL, Route: PO, 09/10/2011 09/10/2011 Discontinued suspension Drug form: SUSP, QID, Start date: 09/10/11 13:00:00, Duration: 30 day, Stop date: 10/10/11 9:00:00 Protonix 40 mg, 1 tab, Route: PO, 09/10/2011 09/10/2011 Discontinued Drug form: ECTAB, Before Dinner, Start date: 09/10/11 16:30:00, Duration: 30 day, Stop date: 10/09/11 16:30:00 albuterol 0.083% 2.49 mg, 3 mL, Route: 09/10/2011 09/10/2011 Discontinued inhalation solution NEB, Drug form: SOLN, RQ6H, Start date: 09/10/11 14:00:00, Duration: 30 day, Stop date: 10/10/11 8:00:00 influenza virus vaccine 0.5 ml, Route: IM, Drug 09/10/2011 09/10/2011 Discontinued intramuscular suspension Form: INJ, ONCALL, Start date: 09/10/11 13:00:00, Duration: 30 day, Stop date: 10/10/11 12:59:00 Pneumovax 23 0.5 ml, Route: IM, Drug 09/10/2011 09/10/2011 Discontinued Form: INJ, ONCALL, Start date: 09/10/11 13:00:00, Duration: 0 azithromycin 500 mg, 2 tab, Route: PO, Drug form: TAB, ONCE, Start date: 09/10 12:23:00, Stop date: 09/10/11 12:23:00, Initial Dose 09/10/20112010 Completed Initial Dose azithromycin 250 mg, 1 tab, Route: 09/11/2011 09/10/2011 Canceled PO, Drug form: TAB, [id number], Start date: 09/11/11 9:00:00, Duration: 4 doses or times, Stop date: 09/14/11 9:00:00 predniSONE 60 mg, Route: PO, Drug 09/10/2011 09/10/2011 Deleted form: TAB, STAT, Start date: 09/10/11 12:23:00, Stop date: 09/10/11 12:23:00 Diovan 160 mg, 1 tab, Route: 09/10/2011 09/10/2011 Discontinued PO, Drug form: TAB, Daily, Start date: 09/10/11 13:12:00, Duration: 30 day, Stop date: 10/10/11 9:00:00 predniSONE 60 mg, 3 tab, Route: PO, 09/10/2011 09/10/2011 Completed Drug form: TAB, ONCE, Start date: 09/10/11 12:36:00, Stop date: 09/10/11 12:36:00 lisinopril 10 mg oral 10 mg, 1 tab, PO, Daily, 09/10/2011 Ordered tablet 30 tab, Substitution Allowed, TAB Nebulizer 1 ea, MISC, ONCALL, 1 09/10/2011 Ordered ea, Substitution Allowed, Maintenance Advair Diskus 250 mcg-50 1 puff, INHALATION, BID, 09/10/2011 Ordered mcg inhalation powder 60 puff, Substitution Allowed, Maintenance predniSONE 10 mg oral See Instructions, 15 tab, Substitution Allowed, 2 po for 5 days 1 po for 5 days 09/10/2011 Ordered tablet 2 po for 5 days 1 po for 5 days Protonix 40 mg oral 40 mg, 1 tab, PO, Before 09/10/2011 Ordered enteric coated tablet Dinner, 30 tab, Substitution Allowed, ECTAB Carafate 1 g/10 mL oral 1 gm, 10 mL, PO, QID, 60 09/10/2011 Ordered suspension mL, Substitution Allowed, SUSP azithromycin 250 mg oral 250 mg, 1 tab, PO, 09/10/2011 Ordered tablet [id number], 4 tab, Substitution Allowed, TAB aspirin 81 mg tablet, 81 mg, 1 tab, PO, Daily, 09/10/2011 Ordered enteric coated 100 tab, Substitution Allowed, ECTAB aspirin 325 mg tablet 325 mg, 1 tab, Route: 09/10/2011 09/10/2011 Completed PO, Drug form: TAB, ONCE, Priority: STAT, Start date: 09/10/11 6:55:00, Stop date: 09/10/11 6:55:00 Saline Flush 0.9% 5 ml, Route: IVP, Drug 09/10/2011 09/10/2011 Discontinued Form: INJ, PRN, PRN Line Flush, Start date: 09/10/11 6:55:00, Duration: 30 day, Stop date: 10/10/11 6:54:00 Non-Formulary Home INHALATION, Daily, 09/10/2011 09/10/2011 Discontinued Medication Substitution Allowed predniSONE 40 mg, 2 tab, Route: PO, 09/11/2011 09/10/2011 Canceled Drug form: TAB, Daily, Start date: 09/11/11 9:00:00, Duration: 30 day, Stop date: 10/10/11 9:00:00 Saline Flush 0.9% 5 ml, Route: IVP, Drug 09/10/2011 09/10/2011 Discontinued Form: INJ, Q12H, Start date: 09/10/11 21:00:00, Duration: 30 day, Stop date: 10/10/11 9:00:00 Saline Flush 0.9% 5 ml, Route: IVP, Drug 09/10/2011 09/10/2011 Discontinued Form: INJ, PRN, PRN Line Flush, Start date: 09/10/11 12:27:00, Duration: 30 day, Stop date: 10/10/11 12:26:00 nitroglycerin SL Tab 0.4 mg, 1 tab, Route: 09/10/2011 09/10/2011 Discontinued SL, Drug form: TAB, Q5Min, PRN Chest Pain, Start date: 09/10/11 12:27:00, Duration: 3 doses or times, Stop date: Limited # of times aspirin 81 mg, 1 tab, Route: PO, 09/11/2011 09/10/2011 Canceled Drug form: ECTAB, Daily, Start date: 09/11/11 9:00:00, Duration: 30 day, Stop date: 10/10/11 9:00:00 albuterol 0.042% 2.49 mg, NEB, RQ6H, 60 09/10/2011 Ordered inhalation solution unit, Substitution Allowed, SOLN Vital Signs Most recent to oldest 1 2 3 [Reference Range]: Height 170.18 cm 170.18 cm (09/10/2011 11:56:00) (09/10/2011 06:16:00) Temperature Oral 97.4 DegF 98.0 DegF 96.0 DegF [96.4-99.1 DegF] (09/10/2011 20:25:00) (09/10/2011 16:29:00) *LOW* (09/10/2011 12:10:00) Systolic Blood Pressure 157 mmHg 120 mmHg 162 mmHg [90-140 mmHg] *HI* (09/10/2011 16:29:00) *HI* (09/10/2011 20:25:00) (09/10/2011 12:10:00) Diastolic Blood Pressure 94 mmHg 84 mmHg 102 mmHg [60-90 mmHg] *HI* (09/10/2011 16:29:00) *HI* (09/10/2011 20:25:00) (09/10/2011 12:10:00) Respiratory Rate [14-20 20 BRMIN 20 BRMIN 18 BRMIN BRMIN] (09/10/2011 20:25:00) (09/10/2011 16:29:00) (09/10/2011 12:10:00) Peripheral Pulse Rate 89 bpm 74 bpm 68 bpm [60-100 bpm] (09/10/2011 20:25:00) (09/10/2011 16:29:00) (09/10/2011 12:10: 00) Weight 65.909 kg 65.909 kg (09/10/2011 11:56:00) (09/10/2011 06:16:00) Results CHEMISTRY Most recent to oldest 1 2 3 [Reference Range]: Sodium Lvl [135-145 mEq/L] 141 mEq/L (09/10/2011 06:37:00) Potassium Lvl [3.5-5.1 3.6 mEq/L mEq/L] (09/10/2011 06:37:00) Chloride Lvl [95-109 mEq/L] 106 mEq/L (09/10/2011 06:37:00) CO2 [24-32 mEq/L] 25 mEq/L (09/10/2011 06:37:00) AGAP [10.0-20.0 mEq/L] 13.6 mEq/L (09/10/2011 06:37:00) Creatinine Lvl [0.5-1.4 1.0 mg/dL mg/dL] (09/10/2011 06:37:00) BUN [7-22 mg/dL] 8 mg/dL (09/10/2011 06:37:00) B/C Ratio [6-25] 8 (09/10/2011 06:37:00) Glucose Lvl 77 mg/dL 1 *NA* (09/10/2011 06:37:00) Total Protein [6.4-8.4 7.7 g/dL g/dL] (09/10/2011 06:37:00) Albumin Lvl [3.5-5.0 g/dL] 3.6 g/dL (09/10/2011 06:37:00) Globulin [2.0-4.0 g/dL] 4.1 g/dL *HI* (09/10/2011 06:37:00) A/G Ratio [0.7-1.6] 0.9 (09/10/2011 06:37:00) Calcium Lvl [8.5-10.5 8.4 mg/dL mg/dL] *LOW* (09/10/2011 06:37:00) ALT [0-65 U/L] 30 U/L (09/10/2011 06:37:00) AST [0-37 U/L] 35 U/L (09/10/2011 06:37:00) Alk Phos [39-136 U/L] 68 U/L (09/10/2011 06:37:00) Bili Total [0.2-1.3 mg/dL] 0.5 mg/dL (09/10/2011 06:37:00) Amylase Lvl [25-115 U/L] 72 U/L (09/10/2011 06:37:00) Lipase Lvl [73-393 U/L] 366 U/L (09/10/2011 06:37:00) Total CK [12-191 U/L] 137 U/L 166 U/L 132 U/L (09/10/2011 17:23:00) (09/10/2011 11:26:00) (09/10/2011 06:37:00) CK MB [0.5-3.6 ng/mL] 0.8 ng/mL <0.5 ng/mL 0.6 ng/mL (09/10/2011 17:23:00) (09/10/2011 11:26:00) (09/10/2011 06:37:00) CK MB Index [0.0-2.5] 0.6 <0.3 0.5 (09/10/2011 17:23:00) (09/10/2011 11:26:00) (09/10/2011 06:37:00) Troponin-I [0.00-0.40 <0.02 ng/mL <0.02 ng/mL <0.02 ng/mL ng/mL] (09/10/2011 17:23:00) (09/10/2011 11:26:00) (09/10/2011 06:37:00) 1Interpretive Data: Reference Ranges : 0 - 7 days : 41 - 90 mg/dL7 days - 150 yrs : 70 - 99 mg/dL (fasting), based on the clinical recommendations of the [place] [employer].HEMATOLOGY Most recent to oldest [Reference Range]: 1 2 3 WBC [3.7-10.4 K/CMM] 3.3 K/CMM *LOW* (09/10/2011 06:37:00) RBC [4.70-6.10 M/CMM] 4.57 M/CMM *LOW* (09/10/2011 06:37:00) Hgb [14.0-18.0 g/dL] 15.1 g/dL (09/10/2011 06:37:00) Hct [42.0-54.0 %] 43.1 % (09/10/2011 06:37:00) MCV [80.0-94.0 fL] 94.2 fL *HI* (09/10/2011 06:37:00) MCH [27.0-31.0 pg] 32.9 pg *HI* (09/10/2011:37:00) MCHC [32.0-36.0 g/dL] 35.0 g/dL (09/10/2011 06:37:00) RDW [11.5-14.5 %] 12.3 % (09/10/2011 06:37:00) Platelet [133-450 K/CMM] 177 K/CMM (09/10/2011 06:37:00) MPV [7.4-10.4 fL] 8.8 fL (09/10/2011 06:37:00) Segs [45.0-75.0 %] 52.7 % (09/10/2011 06:37:00) Lymphocytes [20.0-40.0 %] 33.6 % (09/10/2011 06:37:00) Monocytes [2.0-12.0 %] 10.2 % (09/10/2011 06:37:00) Eosinophils [0.0-4.0 %] 3.1 % (09/10/2011 06:37:00) Basophils [0.0-1.0 %] 0.4 % (09/10/2011 06:37:00) Segs-Bands # [1.5-8.1 K/CMM] 1.7 K/CMM (09/10/2011 06:37:00) Lymphocytes # [1.0-5.5 K/CMM] 1.1 K/CMM (09/10/2011 06:37:00) Monocytes # [0.0-0.8 K/CMM] 0.3 K/CMM (09/10/2011 06:37:00) Eosinophils # [0.0-0.5 K/CMM] 0.1 K/CMM (09/10/2011 06:37:00) Basophils # [0.0-0.2 K/CMM] 0.0 K/CMM (09/10/2011 06:37:00) PT [12.0-14.7 seconds] 13.0 seconds (09/10/2011 06:37:00) INR [0.85-1.17] 0.98 2 (09/10/2011 06:37:00) PTT [22.9-35.8 seconds] 29.5 seconds 3 (09/10/2011 06:37:00) 2Interpretive Data: RECOMMENDED RANGES FOR PROTIME INR: 2.0-3.0 for most medical and surgical thromboembolic states. 2.5-3.5 for artificial heart valves and recurrent embolism.INR SHOULD BE USED ONLY FOR PATIENTS ON STABLE ANTICOAGULANT THERAPY.3Interpretive Data: Heparin Therapeutic Range: 57 - 92 Seconds
--- OUTSIDE RECORDS SUMMARY | 2018-09-17 00:14 | XMS REPORT | Summary of Care ---
:1965 Author Organization [facility] Address [address] [place] [address]- Encounter HQ Encntr_alias(FIN) [id number] Date(s): 06/10/17 - 06/10/[address] [address]- Discharge Disposition: Home or Self Care Attending Physician: June Dotson MD Referring Physician: June Dotson MD Vital Signs No data available for this section Problem List Condition Effective Dates Status Health Status Informant Asthma(Confirmed) Active Chest pain(Confirmed) Active H/O: stroke(Confirmed)1 Resolved Hx of brain surgery(Confirmed)2 Resolved Nerve damage(Confirmed)3 Resolved Dislocation of cervical Resolved vertebrae(Confirmed)4 1in 2011 also in [id number] arm in [id number] Allergies, Adverse Reactions, Alerts Substance Reaction Severity Status NKDA Active Medications No data available for this section Results No data available for this section Immunizations No data available for this section Procedures No data available for this section Social History Social History Type Response Substance Abuse Use: None. Employment/School Status: disability. Work/School description: disability. Highest education level: University degree(s). Alcohol Past Smoking Status Former smoker; Exposure to Tobacco Smoke None; Cigarette Smoking Last 365 Days No; Reg Smoking Cessation Counseling Yes Assessment and Plan No data available for this section
--- OUTSIDE RECORDS SUMMARY | 2018-09-17 00:14 | XMS REPORT | Summary of Care ---
:1965 Author Organization [facility] Outpatient [facility] [place] Address [address] [place], [place] [address]- Encounter HQ Encntr_alias(FIN) [id number] Date(s): 06/25/17 - 06/25/17 [facility] Outpatient Imaging [address], [address] [place] [address]- [phone] Discharge Disposition: Home or Self Care Attending Physician: June Dotson MD Vital Signs No data available for this section Problem List Condition Effective Dates Status Health Status Informant Asthma(Confirmed) Active Chest pain(Confirmed) Active H/O: stroke(Confirmed)1 Resolved Hx of brain surgery(Confirmed)2 Resolved Nerve damage(Confirmed)3 Resolved Dislocation of cervical Resolved vertebrae(Confirmed)4 1in 2011 also in [id number] arm in [id number] Allergies, Adverse Reactions, Alerts Substance Reaction Severity [...]
--- OUTSIDE RECORDS SUMMARY | 2018-09-17 00:14 | XMS REPORT | Summary of Care ---
:1965 Author Organization [facility] Address [address] [facility] [address] [place] [address]- Encounter HQ Anali_adrien(FIN) [id number] Date(s): 11/18/17 - 11/19/17 [facility] [address] [facility] [place] [address]- [phone] Vital Signs No data available for this [...] Active Dislocation of cervical Resolved vertebrae(Confirmed)4 1in 2011 also in [id number] arm in [id number] Allergies, Adverse Reactions, Alerts Substance Reaction Severity [...]
--- OUTSIDE RECORDS SUMMARY | 2018-09-17 00:14 | XMS REPORT | Summary of Care ---
:1965 Author Organization [facility] Outpatient Imaging [place] Address [address] [place], [place] [address]- Encounter HQ Encntr_alias(FIN) [id number] Date(s): 06/16/17 - 06/16/17 [facility] Outpatient Imaging [address], [address] [place] [address]- [phone] Discharge Disposition: Home or Self Care Attending Physician: June Dotson MD Vital Signs No data available for this section Problem List Condition Effective Dates Status Health Status Informant Asthma(Confirmed) Active Chest pain(Confirmed) Active H/O: stroke(Confirmed)1 Resolved Hx of brain surgery(Confirmed)2 Resolved Nerve damage(Confirmed)3 Resolved Dislocation of cervical Resolved vertebrae(Confirmed)4 1in 2011 also in [id number] arm in [id number] Allergies, Adverse Reactions, Alerts Substance Reaction Severity [...]
--- OUTSIDE RECORDS SUMMARY | 2018-09-17 00:14 | XMS REPORT | Summary of Care ---
:1965 Author Organization [facility] Outpatient Imaging [place] Address [address] [place], [place] [address]- Encounter HQ Encntr_alias(FIN) [id number] Date(s): 07/06/17 - 07/06/17 [facility] Outpatient Imaging [address], [address] [place] [address]- [phone] Discharge Disposition: Home or Self Care Attending Physician: June Dotson MD Vital Signs No data available for this section Problem List Condition Effective Dates Status Health Status Informant Asthma(Confirmed) Active Chest pain(Confirmed) Active H/O: stroke(Confirmed)1 Resolved Hx of brain surgery(Confirmed)2 Resolved Nerve damage(Confirmed)3 Resolved Dislocation of cervical Resolved vertebrae(Confirmed)4 1in 2011 also in [id number] arm in [id number] Allergies, Adverse Reactions, Alerts Substance Reaction Severity [...]
--- OUTSIDE RECORDS SUMMARY | 2018-09-17 00:14 | XMS REPORT | Summary of Care ---
:1965 Author Organization [facility] Address [address] [place] [address]- Encounter HQ Encntr_alias(FIN) [id number] Date(s): 06/25/17 - 06/25/[address] [address] [phone] Discharge Disposition: Home or Self Care Attending Physician: Brian Munroe MD Referring Physician: Brian Munroe MD Vital Signs No data available for this section Problem List Condition Effective Dates Status Health Status Informant Asthma(Confirmed) Active Chest pain(Confirmed) Active H/O: stroke(Confirmed)1 Resolved Hx of brain surgery(Confirmed)2 Resolved Nerve damage(Confirmed)3 Resolved Dislocation of cervical Resolved vertebrae(Confirmed)4 1in 2011 also in [id number] arm in Allergies, Adverse Reactions, Alerts Substance Reaction Severity [...]
--- OUTSIDE RECORDS SUMMARY | 2018-09-17 00:14 | XMS REPORT | Summary of Care ---
:1965 Author Organization [facility] Address [id number] [place] [address], [address] [address]- Encounter HQ Ashok(FIN) [id number] Date(s): 01/14/18 - 01/14/18 [facility] [address] [place] [address], [address] [address]- [phone] Discharge Disposition: Home or Self Care Attending Physician: Thony Cruz MD Referring Physician: June Dotson MD Vital Signs Most recent to oldest [Reference Range]: 1 Height 170.18 cm (01/14/18 2:37 PM) Temperature Oral [96.4-99.1 DegF] 98.8 DegF (01/14/18 2:37 PM) Blood Pressure [90-140/60-90 mmHg] 107/66 mmHg (01/14/18 2:37 PM) Respiratory Rate [14-20 BRMIN] 14 BRMIN (01/14/18 2:37 PM) Peripheral Pulse Rate [60-100 bpm] 80 bpm (01/14/18 2:37 PM) Weight 64.688 kg (01/14/18 2:37 PM) Body Mass Index 22.34 m2 (01/14/18 2:37 PM) Problem List Condition Effective Dates Status [...] cervical Resolved vertebrae(Confirmed)4 1in 2010 also in [id number] arm in [id number] Allergies, Adverse Reactions, Alerts Substance Reaction Severity Status NKDA Active Medications hydrOXYzine hydrochloride 25 mg oral tablet 25 mg=1 tab, PO, Bedtime, as needed for sleep / insomnia, # 90 tab, 1 Refill(s) , Pharmacy: [facility]/pharmacy #[id number] Start Date: 01/14/18 Status: Ordered Results No data available for this section Immunizations Given and Recorded Vaccine Date Status Refusal Reason influenza virus vaccine, live, trivalent 01/14/18 Recorded Procedures Procedure Date Related Diagnosis Body Site Status Colonoscopy 06/2017 Completed Cervical epidural steroid injection 09/2003 Completed Operation on brain1 Completed 1due to stroke in 2015 Social History Social History Type Response Substance Abuse Use: None. Employment/School Status: disability. Work/School description: disability. Highest education level: University degree(s). Alcohol Past Smoking Status Former smoker; Exposure to Tobacco Smoke None; Cigarette Smoking Last 365 Days No; Reg Smoking Cessation Counseling Yes entered on: 01/14/18 Assessment and Plan No data available for this section
--- OUTSIDE RECORDS SUMMARY | 2018-09-17 00:15 | XMS REPORT | Summary of Care ---
:1965 Author Organization [facility] Address [address] [place] [address]- Encounter HQ Anali_adrien(FIN) [id number] Date(s): 11/30/17 - 12/01/17 [facility] [address] [place] [address]- [phone] Vital Signs No data available for this [...] cervical Resolved vertebrae(Confirmed)4 1in 2011 also in [id number] arm in [id number] Allergies, Adverse Reactions, Alerts Substance Reaction Severity [...]
--- OUTSIDE RECORDS SUMMARY | 2018-09-17 00:15 | XMS REPORT | Summary of Care ---
:1965 Author Organization [facility] Address [address] [facility] [address] [place] [address]- Encounter HQ Anali_adrien(FIN) [id number] Date(s): 12/11/17 - 12/12/17 [facility] [address] [facility] [address] [place] [address]- [phone] Vital Signs No data available for this [...] cervical Resolved vertebrae(Confirmed)4 1in 2011 also in [id number] arm in [id number] Allergies, Adverse Reactions, Alerts Substance Reaction Severity [...]
--- OUTSIDE RECORDS SUMMARY | 2018-09-17 00:15 | XMS REPORT | Summary of Care ---
:1965 Author Organization [facility] Address [address] [facility] [address] [place] [address]- Encounter HQ Anali_adrien(FIN) [id number] Date(s): 12/11/17 - 12/12/17 [facility] [address] [facility] [address] [place] [address]- [phone] Vital Signs No data available for this [...] cervical Resolved vertebrae(Confirmed)4 1in 2011 also in [id number] arm in [id number] Allergies, Adverse Reactions, Alerts Substance Reaction Severity [...]
--- OUTSIDE RECORDS SUMMARY | 2018-09-17 00:18 | XMS REPORT ---
:1965 [facility] Address [address] [place] [address] Care Team Providers Name Role Phone RADHIKA GRIMM Unavailable Unavailable LYNDA SLADE Unavailable Unavailable VIANNEY SHARMA Unavailable Unavailable SYSTEM, PROVIDER NOT IN Unavailable Unavailable MINDIKOGLU, IZZY GALLOWAYYLA Unavailable Unavailable VIDHYA, CRISTEL J Unavailable Unavailable LAURA CANTOR Unavailable Unavailable AFSHAN MULLIGAN Unavailable Unavailable AFSHAN ALVARADO Unavailable Unavailable CARLOS SAMANIEGO Unavailable Unavailable ALEX MANN Unavailable Unavailable CHELA FITZGERALD Unavailable Unavailable KENDY SALDANA Unavailable Unavailable Problems This patient has no known problems. Allergies, Adverse Reactions, Alerts This patient has no known allergies or adverse reactions. Medications This patient has no known medications. Results Test Description Test Time Test Comments Text Results Atomic Results Result Comments TISSUE EXAM 2018-07-20 18:09:00 Surgical Pathology Report Case: [id number] Authorizing Provider: Radhika Grimm MD Collected: 07/19/2018 1219 Ordering Location: [facility] Endoscopy Received: 07/19/2018 1354 Services Pathologist: Rama Hatch MD Specimens: A) - Duodenum, Bx B) - Antrum, R/O Helicobacter A. DUODENUM, ENDOSCOPIC MUCOSAL BIOPSIES:- DUODENAL MUCOSA WITH PRESERVED VILLOUS ARCHITECTURE AND MINOR NONSPECIFIC ALTERATIONSB. STOMACH, ENDOSCOPIC MUCOSAL BIOPSIES- ANTRAL MUCOSA WITH NO SIGNIFICANT DIAGNOSTIC ALTERATIONS- NEGATIVE FOR HELICOBACTER PYLORI- NEGATIVE FOR INTESTINAL METAPLASIA, DYSPLASIA OR CARCINOMA Signing Pathologist Direct Phone Line: [phone] signed by Rama Hatch MD on 07/20/2018 at 6:09 [id number] x2, [id number] varices without bleeding, rule out H. pyloriA. Duodenum biopsy; B. Antrum biopsySpecimen A; Received in formalin labeled "duodenum" are two fragments measuring 0.2 and 0.3 cm in greatest dimension. Entirely submitted A1. Specimen B. Received in formalin labeled "antrum" are two fragments measuring 0.4 and 0.6 cm in greatest dimension. Entirely submitted B1. DB/Carlos. Section shows pieces of duodenal mucosa with preserved villous architecture. Mild vascular congestion is seen. Plasma cells are present. There is no active inflammation, gastric metaplasia, intraepithelial lymphocytosis or malignancy. No parasites are seen.B. Microscopic examination is performed and the findings are incorporated in the diagnostic line. Warthin starry stain is negative for Helicobacter pylori. COMPREHENSIVE METABOLIC PANEL 2018-06-23 12:39:00 Test Item Value Reference Range Comments TOTAL PROTEIN (BEAKER) (test 7.3 gm/dL 6.0-8.3 ucrm=318) ALBUMIN (BEAKER) (test 3.2 g/dL 3.5-5.0 ufhx=2132) ALKALINE PHOSPHATASE 81 U/L 40-150 (BEAKER) (test qjkm=124) BILIRUBIN TOTAL (BEAKER) 2.1 mg/dL 0.2-1.2 (test eryz=720) SODIUM (BEAKER) (test 140 meq/L 136-145 exzd=772) POTASSIUM (BEAKER) (test 3.6 meq/L 3.5-5.1 ysck=097) CHLORIDE (BEAKER) (test 111 meq/L 98-107 ajnt=249) CO2 (BEAKER) (test qubw=960) 21 meq/L 22-29 BLOOD UREA NITROGEN (BEAKER) 16 mg/dL 7-21 (test ouhl=681) CREATININE (BEAKER) (test 1.10 mg/dL 0.57-1.25 ormf=654) GLUCOSE RANDOM (BEAKER) 99 mg/dL 70-105 (test skfx=410) CALCIUM (BEAKER) (test 9.4 mg/dL 8.4-10.2 lpmj=405) AST (SGOT) (BEAKER) (test 23 U/L 5-34 faph=389) ALT (SGPT) (BEAKER) (test 14 U/L 6-55 nlew=389) EGFR (BEAKER) (test 69 mL/min/1.73 sq m ESTIMATED GFR IS NOT lcgz=2642) ACCURATE CREATININE CLEARANCE IN PREDICTING GLOMERULAR FILTRATION RATE. ESTIMATED GFR IS NOT APPLICABLE FOR DIALYSIS PATIENTS. BILIRUBIN, [id number] 12:39:00 Test Item Value Reference Range Comments BILIRUBIN DIRECT (BEAKER) (test slvl=573) 1.0 mg/dL 0.1-0.5 PROTHROMBIN TIME/[id number] 12:26:00 Test Item Value Reference Range Comments PROTIME (BEAKER) (test otme=130) 17.0 seconds 11.7-14.7 INR (BEAKER) (test wdoj=747) 1.4 <=5.9 RECOMMENDED COUMADIN/WARFARIN INR THERAPY RANGESSTANDARD DOSE: 2.0 - 3.0 Includes: PROPHYLAXIS forvenous thrombosis, systemic embolization; TREATMENT for venous thrombosis and/or pulmonary embolus.HIGH RISK: Target INR is 2.5-3.5 for patients with mechanical heart valves.CBC W/PLT COUNT & AUTO [id number] 12:22:00 Test Item Value Reference Range Comments WHITE BLOOD CELL COUNT (BEAKER) (test skse=431) 3.7 K/ L 3.5-10.5 RED BLOOD CELL COUNT (BEAKER) (test njhm=457) 4.02 M/ L 4.63-6.08 HEMOGLOBIN (BEAKER) (test pjdx=629) 12.2 GM/DL 13.7-17.5 HEMATOCRIT (BEAKER) (test cmtj=899) 37.1 % 40.1-51.0 MEAN CORPUSCULAR VOLUME (BEAKER) (test inhm=573) 92.3 fL 79.0-92.2 MEAN CORPUSCULAR HEMOGLOBIN (BEAKER) (test 30.3 pg 25.7-32.2 xtst=388) MEAN CORPUSCULAR HEMOGLOBIN CONC (BEAKER) (test 32.9 GM/DL 32.3-36.5 kinq=328) RED CELL DISTRIBUTION WIDTH (BEAKER) (test 14.4 % 11.6-14.4 jcvi=707) PLATELET COUNT (BEAKER) (test ovhm=127) 67 K/CU MM 150-450 MEAN PLATELET VOLUME (BEAKER) (test rfzh=315) 11.6 fL 9.4-12.4 NUCLEATED RED BLOOD CELLS (BEAKER) (test 0 /100 WBC 0-0 oiui=481) NEUTROPHILS RELATIVE PERCENT (BEAKER) (test 54 % tlqk=737) LYMPHOCYTES RELATIVE PERCENT (BEAKER) (test 30 % yatc=157) MONOCYTES RELATIVE PERCENT (BEAKER) (test 12 % cobf=603) EOSINOPHILS RELATIVE PERCENT (BEAKER) (test 4 % yagq=254) BASOPHILS RELATIVE PERCENT (BEAKER) (test 1 % nhtv=109) NEUTROPHILS ABSOLUTE COUNT (BEAKER) (test 1.98 K/ L 1.78-5.38 bebj=663) LYMPHOCYTES ABSOLUTE COUNT (BEAKER) (test 1.10 K/ L 1.32-3.57 dizt=384) MONOCYTES ABSOLUTE COUNT (BEAKER) (test idag=289) 0.43 K/ L 0.30-0.82 EOSINOPHILS ABSOLUTE COUNT (BEAKER) (test 0.14 K/ L 0.04-0.54 egtt=708) BASOPHILS ABSOLUTE COUNT (BEAKER) (test wxfm=351) 0.02 K/ L 0.01-0.08 IMMATURE GRANULOCYTES-RELATIVE PERCENT (BEAKER) 0 % 0-1 (test gmgi=6010) BASIC METABOLIC [id number] 08:34:00 Test Item Value Reference Range Comments SODIUM (BEAKER) (test 139 meq/L 136-145 hdls=138) POTASSIUM (BEAKER) (test 3.8 meq/L 3.5-5.1 vinm=008) CHLORIDE (BEAKER) (test 111 meq/L 98-107 afff=956) CO2 (BEAKER) (test 21 meq/L 22-29 wgce=212) BLOOD UREA NITROGEN 17 mg/dL 7-21 (BEAKER) (test psjf=304) CREATININE (BEAKER) (test 1.15 mg/dL 0.57-1.25 rgdj=584) GLUCOSE RANDOM (BEAKER) 113 mg/dL 70-105 (test wrnx=116) CALCIUM (BEAKER) (test 9.3 mg/dL 8.4-10.2 orzm=138) EGFR (BEAKER) (test 66 mL/min/1.73 sq m ESTIMATED GFR IS NOT zrri=5616) ACCURATE CREATININE CLEARANCE IN PREDICTING GLOMERULAR FILTRATION RATE. ESTIMATED GFR IS NOT APPLICABLE FOR DIALYSIS PATIENTS. Specimen slightly ictericPT/[id number] 08:17:00 Test Item Value Reference Range Comments PROTIME (BEAKER) (test aexu=895) 18.9 seconds 11.7-14.7 INR (BEAKER) (test wscq=648) 1.6 <=5.9 PARTIAL THROMBOPLASTIN TIME (BEAKER) (test 46.7 seconds 22.5-36.0 wcuw=430) RECOMMENDED COUMADIN/WARFARIN INR THERAPY RANGESSTANDARD DOSE: 2.0 - 3.0 Includes: PROPHYLAXIS forvenous thrombosis, systemic embolization; TREATMENT for venous thrombosis and/or pulmonary embolus.HIGH RISK: Target INR is 2.5-3.5 for patients with mechanical heart valves.CBC W/PLT COUNT & AUTO [id number] 08:08:00 Test Item Value Reference Range Comments WHITE BLOOD CELL COUNT (BEAKER) (test apvi=994) 2.8 K/ L 3.5-10.5 RED BLOOD CELL COUNT (BEAKER) (test fmij=034) 3.55 M/ L 4.63-6.08 HEMOGLOBIN (BEAKER) (test unbb=468) 10.8 GM/DL 13.7-17.5 HEMATOCRIT (BEAKER) (test rxhr=015) 32.3 % 40.1-51.0 MEAN CORPUSCULAR VOLUME (BEAKER) (test ntwg=988) 91.0 fL 79.0-92.2 MEAN CORPUSCULAR HEMOGLOBIN (BEAKER) (test 30.4 pg 25.7-32.2 nphq=087) MEAN CORPUSCULAR HEMOGLOBIN CONC (BEAKER) (test 33.4 GM/DL 32.3-36.5 mhji=227) RED CELL DISTRIBUTION WIDTH (BEAKER) (test 15.5 % 11.6-14.4 ohno=937) PLATELET COUNT (BEAKER) (test xmxj=422) 51 K/CU MM 150-450 MEAN PLATELET VOLUME (BEAKER) (test aeta=682) 10.7 fL 9.4-12.4 NUCLEATED RED BLOOD CELLS (BEAKER) (test 0 /100 WBC 0-0 bacp=731) NEUTROPHILS RELATIVE PERCENT (BEAKER) (test 48 % stca=617) LYMPHOCYTES RELATIVE PERCENT (BEAKER) (test 34 % uawc=001) MONOCYTES RELATIVE PERCENT (BEAKER) (test 12 % dojq=557) EOSINOPHILS RELATIVE PERCENT (BEAKER) (test 5 % wxfd=519) BASOPHILS RELATIVE PERCENT (BEAKER) (test 0 % pdam=828) NEUTROPHILS ABSOLUTE COUNT (BEAKER) (test 1.34 K/ L 1.78-5.38 duiw=688) LYMPHOCYTES ABSOLUTE COUNT (BEAKER) (test 0.95 K/ L 1.32-3.57 xwtd=715) MONOCYTES ABSOLUTE COUNT (BEAKER) (test atnc=675) 0.33 K/ L 0.30-0.82 EOSINOPHILS ABSOLUTE COUNT (BEAKER) (test 0.14 K/ L 0.04-0.54 vonb=194) BASOPHILS ABSOLUTE COUNT (BEAKER) (test ckqk=607) 0.01 K/ L 0.01-0.08 IMMATURE GRANULOCYTES-RELATIVE PERCENT (BEAKER) 0 % 0-1 (test ylnv=2631) COMPREHENSIVE METABOLIC [id number] 12:12:00 Test Item Value Reference Range Comments TOTAL PROTEIN (BEAKER) 7.5 gm/dL 6.0-8.3 (test vblj=705) ALBUMIN (BEAKER) (test 3.3 g/dL 3.5-5.0 zcqf=0682) ALKALINE PHOSPHATASE 96 U/L 40-150 (BEAKER) (test tabc=180) BILIRUBIN TOTAL (BEAKER) 2.5 mg/dL 0.2-1.2 (test ylpq=404) SODIUM (BEAKER) (test 138 meq/L 136-145 copr=998) POTASSIUM (BEAKER) (test 4.3 meq/L 3.5-5.1 mynh=976) CHLORIDE (BEAKER) (test 112 meq/L 98-107 osjs=795) CO2 (BEAKER) (test 21 meq/L 22-29 jmwt=966) BLOOD UREA NITROGEN 14 mg/dL 7-21 (BEAKER) (test buke=852) CREATININE (BEAKER) (test 1.09 mg/dL 0.57-1.25 azkj=546) GLUCOSE RANDOM (BEAKER) 88 mg/dL 70-105 (test pcgy=820) CALCIUM (BEAKER) (test 9.2 mg/dL 8.4-10.2 gsnd=016) AST (SGOT) (BEAKER) (test 25 U/L 5-34 aocs=167) ALT (SGPT) (BEAKER) (test 14 U/L 6-55 mhzf=848) EGFR (BEAKER) (test 70 mL/min/1.73 sq m ESTIMATED GFR IS NOT ghyz=7085) ACCURATE CREATININE CLEARANCE IN PREDICTING GLOMERULAR FILTRATION RATE. ESTIMATED GFR IS NOT APPLICABLE FOR DIALYSIS PATIENTS. Specimen slightly ictericBILIRUBIN, [id number] 12:12:00 Test Item Value Reference Range Comments BILIRUBIN DIRECT (BEAKER) (test khxn=267) 1.1 mg/dL 0.1-0.5 PROTHROMBIN TIME/[id number] 11:50:00 Test Item Value Reference Range Comments PROTIME (BEAKER) (test zucw=989) 17.9 seconds 11.7-14.7 INR (BEAKER) (test kfnz=363) 1.5 <=5.9 RECOMMENDED COUMADIN/WARFARIN INR THERAPY RANGESSTANDARD DOSE: 2.0 - 3.0 Includes: PROPHYLAXIS forvenous thrombosis, systemic embolization; TREATMENT for venous thrombosis and/or pulmonary embolus.HIGH RISK: Target INR is 2.5-3.5 for patients with mechanical heart valves.CBC W/PLT COUNT & AUTO [id number] 11:36:00 Test Item Value Reference Range Comments WHITE BLOOD CELL COUNT (BEAKER) (test ktch=573) 4.3 K/ L 3.5-10.5 RED BLOOD CELL COUNT (BEAKER) (test chqf=280) 3.99 M/ L 4.63-6.08 HEMOGLOBIN (BEAKER) (test ctut=373) 11.8 GM/DL 13.7-17.5 HEMATOCRIT (BEAKER) (test tthf=417) 36.4 % 40.1-51.0 MEAN CORPUSCULAR VOLUME (BEAKER) (test irsm=116) 91.2 fL 79.0-92.2 MEAN CORPUSCULAR HEMOGLOBIN (BEAKER) (test 29.6 pg 25.7-32.2 jvnz=599) MEAN CORPUSCULAR HEMOGLOBIN CONC (BEAKER) (test 32.4 GM/DL 32.3-36.5 lkwh=171) RED CELL DISTRIBUTION WIDTH (BEAKER) (test 15.9 % 11.6-14.4 ikfd=926) PLATELET COUNT (BEAKER) (test wayn=316) 69 K/CU MM 150-450 MEAN PLATELET VOLUME (BEAKER) (test jccd=757) 10.5 fL 9.4-12.4 NUCLEATED RED BLOOD CELLS (BEAKER) (test 0 /100 WBC 0-0 gsgt=505) NEUTROPHILS RELATIVE PERCENT (BEAKER) (test 55 % sqpn=754) LYMPHOCYTES RELATIVE PERCENT (BEAKER) (test 30 % tbve=392) MONOCYTES RELATIVE PERCENT (BEAKER) (test 12 % rpma=585) EOSINOPHILS RELATIVE PERCENT (BEAKER) (test 4 % efgo=942) BASOPHILS RELATIVE PERCENT (BEAKER) (test 0 % fskl=783) NEUTROPHILS ABSOLUTE COUNT (BEAKER) (test 2.33 K/ L 1.78-5.38 jizp=673) LYMPHOCYTES ABSOLUTE COUNT (BEAKER) (test 1.28 K/ L 1.32-3.57 cgya=478) MONOCYTES ABSOLUTE COUNT (BEAKER) (test xwax=640) 0.49 K/ L 0.30-0.82 EOSINOPHILS ABSOLUTE COUNT (BEAKER) (test 0.15 K/ L 0.04-0.54 mjup=338) BASOPHILS ABSOLUTE COUNT (BEAKER) (test cogm=661) 0.01 K/ L 0.01-0.08 IMMATURE GRANULOCYTES-RELATIVE PERCENT (BEAKER) 0 % 0-1 (test llxh=7712) MR, ABDOMEN, [id number] 14:17:00Ref Phys: Rosita Howell Abdominal VesselsFINAL REPORT History: Cirrhosis, liver transplant list Comparison: None Technique : Multiplanar imaging with multiple sequences of the abdomen was performed utilizing a 3.0 teslamagnet with and without the administration of gadolinium [...] of portal hypertension. 3. Cholelithiasis. Signed: Malik Villatoroeport Verified Date/Time: 03/18/2018 14:17:19 Reading Location : [facility] Diagnostic Imaging Reading Room - SLSWV F1 1120 [id number] 13: 03:00 Test Item Value Reference Range Comments POC-CREATININE (BEAKER) 1.1 mg/dL 0.6-1.3 TESTED AT [facility] [address] (test uhve=6386) [facility] [address] POC-EGFR (BEAKER) (test 70 mL/min/1.73M2 yagn=7319) HEPATITIS B SURFACE [id number] 12:18:00 Test Item Value Reference Range Comments HEPATITIS B SURFACE ANTIBODY (BEAKER) (test < mIU/mL <8.0 mhav=226) COMPREHENSIVE METABOLIC [id number] 11:58:00 Test Item Value Reference Range Comments TOTAL PROTEIN (BEAKER) 7.8 gm/dL 6.0-8.3 (test onlw=754) ALBUMIN (BEAKER) (test 3.4 g/dL 3.5-5.0 arvx=4337) ALKALINE PHOSPHATASE 97 U/L 40-150 (BEAKER) (test qwfz=376) BILIRUBIN TOTAL (BEAKER) 2.9 mg/dL 0.2-1.2 (test rwkv=694) SODIUM (BEAKER) (test 140 meq/L 136-145 pkmv=875) POTASSIUM (BEAKER) (test 4.3 meq/L 3.5-5.1 zwfn=274) CHLORIDE (BEAKER) (test 110 meq/L 98-107 qoyf=663) CO2 (BEAKER) (test 26 meq/L 22-29 rjmx=795) BLOOD UREA NITROGEN 13 mg/dL 7-21 (BEAKER) (test yuyw=220) CREATININE (BEAKER) (test 1.17 mg/dL 0.57-1.25 woxv=535) GLUCOSE RANDOM (BEAKER) 78 mg/dL 70-105 (test awur=857) CALCIUM (BEAKER) (test 9.8 mg/dL 8.4-10.2 cwdi=706) AST (SGOT) (BEAKER) (test 25 U/L 5-34 gzth=835) ALT (SGPT) (BEAKER) (test 16 U/L 6-55 enzz=509) EGFR (BEAKER) (test 65 mL/min/1.73 sq m ESTIMATED GFR IS NOT vqou=4916) ACCURATE CREATININE CLEARANCE IN PREDICTING GLOMERULAR FILTRATION RATE. ESTIMATED GFR IS NOT APPLICABLE FOR DIALYSIS PATIENTS. Specimen slightly ictericBILIRUBIN, [id number] 11:58:00 Test Item Value Reference Range Comments BILIRUBIN DIRECT (BEAKER) (test fcfr=503) 1.2 mg/dL 0.1-0.5 PROTHROMBIN [id number] 11:48:00 Test Item Value Reference Range Comments PROTIME (BEAKER) (test lszu=123) 17.4 seconds 11.7-14.7 INR (BEAKER) (test ebef=761) 1.4 <=5.9 RECOMMENDED COUMADIN/WARFARIN INR THERAPY RANGESSTANDARD DOSE: 2.0 - 3.0 Includes: PROPHYLAXIS forvenous thrombosis, systemic embolization; TREATMENT for venous thrombosis and/or pulmonary embolus.HIGH RISK: Target INR is 2.5-3.5 for patients with mechanical heart valves.CBC W/PLT COUNT & AUTO [id number] 11:39:00 Test Item Value Reference Range Comments WHITE BLOOD CELL COUNT (BEAKER) (test kpgv=829) 4.7 K/ L 3.5-10.5 RED BLOOD CELL COUNT (BEAKER) (test zdky=443) 4.13 M/ L 4.63-6.08 HEMOGLOBIN (BEAKER) (test ypqu=167) 12.1 GM/DL 13.7-17.5 HEMATOCRIT (BEAKER) (test ppin=115) 37.0 % 40.1-51.0 MEAN CORPUSCULAR VOLUME (BEAKER) (test bnrv=088) 89.6 fL 79.0-92.2 MEAN CORPUSCULAR HEMOGLOBIN (BEAKER) (test 29.3 pg 25.7-32.2 mdyn=812) MEAN CORPUSCULAR HEMOGLOBIN CONC (BEAKER) (test 32.7 GM/DL 32.3-36.5 glrr=817) RED CELL DISTRIBUTION WIDTH (BEAKER) (test 16.7 % 11.6-14.4 jlos=040) PLATELET COUNT (BEAKER) (test qirn=134) 84 K/CU MM 150-450 MEAN PLATELET VOLUME (BEAKER) (test shfn=008) 11.5 fL 9.4-12.4 NUCLEATED RED BLOOD CELLS (BEAKER) (test 0 /100 WBC 0-0 yxej=270) NEUTROPHILS RELATIVE PERCENT (BEAKER) (test 54 % pvcv=270) LYMPHOCYTES RELATIVE PERCENT (BEAKER) (test 31 % sgek=099) MONOCYTES RELATIVE PERCENT (BEAKER) (test 10 % tzbd=642) EOSINOPHILS RELATIVE PERCENT (BEAKER) (test 5 % kfah=995) BASOPHILS RELATIVE PERCENT (BEAKER) (test 0 % oveh=277) NEUTROPHILS ABSOLUTE COUNT (BEAKER) (test 2.51 K/ L 1.78-5.38 npnj=857) LYMPHOCYTES ABSOLUTE COUNT (BEAKER) (test 1.42 K/ L 1.32-3.57 mevw=530) MONOCYTES ABSOLUTE COUNT (BEAKER) (test oqkx=102) 0.44 K/ L 0.30-0.82 EOSINOPHILS ABSOLUTE COUNT (BEAKER) (test 0.25 K/ L 0.04-0.54 afoa=162) BASOPHILS ABSOLUTE COUNT (BEAKER) (test tqky=529) 0.01 K/ L 0.01-0.08 IMMATURE GRANULOCYTES-RELATIVE PERCENT (BEAKER) 0 % 0-1 (test xpnq=4606) COMPREHENSIVE METABOLIC [id number] 17:18:00 Test Item Value Reference Range Comments TOTAL PROTEIN (BEAKER) 7.3 gm/dL 6.0-8.3 (test gizc=443) ALBUMIN (BEAKER) (test 3.1 g/dL 3.5-5.0 llek=5760) ALKALINE PHOSPHATASE 94 U/L 40-150 (BEAKER) (test hbyz=753) BILIRUBIN TOTAL (BEAKER) 2.6 mg/dL 0.2-1.2 (test jdge=566) SODIUM (BEAKER) (test 137 meq/L 136-145 gcfm=131) POTASSIUM (BEAKER) (test 3.5 meq/L 3.5-5.1 ityq=096) CHLORIDE (BEAKER) (test 107 meq/L 98-107 hqle=479) CO2 (BEAKER) (test 23 meq/L 22-29 pqwg=830) BLOOD UREA NITROGEN 15 mg/dL 7-21 (BEAKER) (test pfqp=106) CREATININE (BEAKER) (test 1.03 mg/dL 0.57-1.25 ifgs=778) GLUCOSE RANDOM (BEAKER) 76 mg/dL 70-105 (test irtn=269) CALCIUM (BEAKER) (test 9.5 mg/dL 8.4-10.2 ikgc=044) AST (SGOT) (BEAKER) (test 27 U/L 5-34 lkli=976) ALT (SGPT) (BEAKER) (test 14 U/L 6-55 btei=473) EGFR (BEAKER) (test 75 mL/min/1.73 sq m ESTIMATED GFR IS NOT dqur=7902) ACCURATE CREATININE CLEARANCE IN PREDICTING GLOMERULAR FILTRATION RATE. ESTIMATED GFR IS NOT APPLICABLE FOR DIALYSIS PATIENTS. Specimen slightly ictericBILIRUBIN, [id number] 17:18:00 Test Item Value Reference Range Comments BILIRUBIN DIRECT (BEAKER) (test tmaq=807) 1.1 mg/dL 0.1-0.5 PROTHROMBIN [id number] 17:05:00 Test Item Value Reference Range Comments PROTIME (BEAKER) (test gcsk=466) 18.0 seconds 11.7-14.7 INR (BEAKER) (test udpa=472) 1.5 <=5.9 RECOMMENDED COUMADIN/WARFARIN INR THERAPY RANGESSTANDARD DOSE: 2.0 - 3.0 Includes: PROPHYLAXIS forvenous thrombosis, systemic embolization; TREATMENT for venous thrombosis and/or pulmonary embolus.HIGH RISK: Target INR is 2.5-3.5 for patients with mechanical heart valves.CBC W/PLT COUNT & AUTO [id number] 16:58:00 Test Item Value Reference Range Comments WHITE BLOOD CELL COUNT (BEAKER) (test cevw=167) 4.3 K/ L 3.5-10.5 RED BLOOD CELL COUNT (BEAKER) (test rhli=322) 3.79 M/ L 4.63-6.08 HEMOGLOBIN (BEAKER) (test rjrn=293) 10.4 GM/DL 13.7-17.5 HEMATOCRIT (BEAKER) (test muri=091) 33.2 % 40.1-51.0 MEAN CORPUSCULAR VOLUME (BEAKER) (test ydrp=035) 87.6 fL 79.0-92.2 MEAN CORPUSCULAR HEMOGLOBIN (BEAKER) (test 27.4 pg 25.7-32.2 ltzn=454) MEAN CORPUSCULAR HEMOGLOBIN CONC (BEAKER) (test 31.3 GM/DL 32.3-36.5 flss=724) RED CELL DISTRIBUTION WIDTH (BEAKER) (test 16.9 % 11.6-14.4 ehwc=803) PLATELET COUNT (BEAKER) (test kjww=036) 79 K/CU MM 150-450 MEAN PLATELET VOLUME (BEAKER) (test dmzc=840) 10.8 fL 9.4-12.4 NUCLEATED RED BLOOD CELLS (BEAKER) (test 0 /100 WBC 0-0 mfvb=348) NEUTROPHILS RELATIVE PERCENT (BEAKER) (test 53 % zqlh=051) LYMPHOCYTES RELATIVE PERCENT (BEAKER) (test 29 % hzye=679) MONOCYTES RELATIVE PERCENT (BEAKER) (test 15 % hhms=098) EOSINOPHILS RELATIVE PERCENT (BEAKER) (test 3 % pmxq=490) BASOPHILS RELATIVE PERCENT (BEAKER) (test 0 % xxmc=673) NEUTROPHILS ABSOLUTE COUNT (BEAKER) (test 2.23 K/ L 1.78-5.38 yidn=882) LYMPHOCYTES ABSOLUTE COUNT (BEAKER) (test 1.25 K/ L 1.32-3.57 azgi=370) MONOCYTES ABSOLUTE COUNT (BEAKER) (test xmxj=808) 0.62 K/ L 0.30-0.82 EOSINOPHILS ABSOLUTE COUNT (BEAKER) (test 0.14 K/ L 0.04-0.54 hbfl=613) BASOPHILS ABSOLUTE COUNT (BEAKER) (test selx=560) 0.01 K/ L 0.01-0.08 IMMATURE GRANULOCYTES-RELATIVE PERCENT (BEAKER) 0 % 0-1 (test ocln=5618) U/S, ABDOMINAL, WITH [id number] 11:52:00Ref Phys: Suzan Howell With doppler With doppler Reason for Exam:->hepatic cirrhosis, on liver transplant list with dopplerFINAL REPORT Ultrasound of the Abdomen and Duplex Doppler. TECHNIQUE: Sonographic assessment of the abdomen was performed as well as a detailed duplex Doppler assessment of the liver including spectral wave forms and color-flow analysis of the major vascular structures. ClinicalHistory: hepatic cirrhosis, on liver transplant list. Comparison study: December 22, 2016. Findings: Theliver is coarse and nodular in echotexture with no focal masses. It measures 11.5 cm in length. There is no evidence of intra or extrahepatic biliary dilatation with the common bile duct measuring fourmm. The main portal vein diameter is 1.2 cm. The cholelithiasis is seen with no sonographic evidenceof acute cholecystitis. The spleen measures 12.0 cm, [...] history of cirrhosis. No focal masses are seen.2. Cholelithiasis.3. Unremarkable hepatic Doppler. Signed: Yifan Jasso MDReport Verified Date/Time: 11/09/2017 11:52:19 Reading Location: [address] Radiology Reading Room HEPATITIS B SURFACE [id number] 11:48:00 Test Item Value Reference Range Comments HEPATITIS B SURFACE ANTIBODY (BEAKER) (test 18.0 mIU/mL <8.0 qrkr=878) ALPHA FETOPROTEIN (AFP), TUMOR [id number] 11:48:00 Test Item Value Reference Range Comments ALPHA-FETOPROTEIN (BEAKER) (test dafd=7898) 3.3 ng/mL <10.0 [id number] 11:26:00 Test Item Value Reference Range Comments MAGNESIUM (BEAKER) (test mptr=242) 1.6 mg/dL 1.6-2.6 COMPREHENSIVE METABOLIC [id number] 11:26:00 Test Item Value Reference Range Comments TOTAL PROTEIN (BEAKER) 7.5 gm/dL 6.0-8.3 (test bzlf=387) ALBUMIN (BEAKER) (test 3.1 g/dL 3.5-5.0 jxeb=2854) ALKALINE PHOSPHATASE 102 U/L 40-150 (BEAKER) (test hncr=110) BILIRUBIN TOTAL (BEAKER) 2.5 mg/dL 0.2-1.2 (test ojxl=533) SODIUM (BEAKER) (test 140 meq/L 136-145 dumh=036) POTASSIUM (BEAKER) (test 4.3 meq/L 3.5-5.1 yray=730) CHLORIDE (BEAKER) (test 110 meq/L 98-107 fmal=309) CO2 (BEAKER) (test 26 meq/L 22-29 afme=677) BLOOD UREA NITROGEN 14 mg/dL 7-21 (BEAKER) (test elrg=844) CREATININE (BEAKER) (test 1.06 mg/dL 0.57-1.25 xkim=180) GLUCOSE RANDOM (BEAKER) 83 mg/dL 70-105 (test nuru=061) CALCIUM (BEAKER) (test 9.5 mg/dL 8.4-10.2 iksy=308) AST (SGOT) (BEAKER) (test 33 U/L 5-34 gvpt=417) ALT (SGPT) (BEAKER) (test 19 U/L 6-55 jhyr=232) EGFR (BEAKER) (test 73 mL/min/1.73 sq m ESTIMATED GFR IS NOT wzym=0104) ACCURATE CREATININE CLEARANCE IN PREDICTING GLOMERULAR FILTRATION RATE. ESTIMATED GFR IS NOT APPLICABLE FOR DIALYSIS PATIENTS. Specimen slightly ictericBILIRUBIN, [id number] 11:26:00 Test Item Value Reference Range Comments BILIRUBIN DIRECT (BEAKER) (test zshy=093) 1.2 mg/dL 0.1-0.5 PROTHROMBIN [id number] 11:07:00 Test Item Value Reference Range Comments PROTIME (BEAKER) (test crwt=970) 18.7 seconds 11.7-14.7 INR (BEAKER) (test kpkf=863) 1.6 <=5.9 RECOMMENDED COUMADIN/WARFARIN INR THERAPY RANGESSTANDARD DOSE: 2.0 - 3.0 Includes: PROPHYLAXIS forvenous thrombosis, systemic embolization; TREATMENT for venous thrombosis and/or pulmonary embolus.HIGH RISK: Target INR is 2.5-3.5 for patients with mechanical heart valves.CBC W/PLT COUNT & AUTO [id number] 11:04:00 Test Item Value Reference Range Comments WHITE BLOOD CELL COUNT (BEAKER) (test wuia=270) 4.1 K/ L 3.5-10.5 RED BLOOD CELL COUNT (BEAKER) (test fpjq=584) 3.85 M/ L 4.63-6.08 HEMOGLOBIN (BEAKER) (test aagr=211) 10.3 GM/DL 13.7-17.5 HEMATOCRIT (BEAKER) (test qhse=732) 33.0 % 40.1-51.0 MEAN CORPUSCULAR VOLUME (BEAKER) (test xrzv=074) 85.7 fL 79.0-92.2 MEAN CORPUSCULAR HEMOGLOBIN (BEAKER) (test 26.8 pg 25.7-32.2 qfet=335) MEAN CORPUSCULAR HEMOGLOBIN CONC (BEAKER) (test 31.2 GM/DL 32.3-36.5 izir=706) RED CELL DISTRIBUTION WIDTH (BEAKER) (test 17.8 % 11.6-14.4 dzry=585) PLATELET COUNT (BEAKER) (test cgzb=221) 75 K/CU MM 150-450 MEAN PLATELET VOLUME (BEAKER) (test mkbs=571) 10.1 fL 9.4-12.4 NUCLEATED RED BLOOD CELLS (BEAKER) (test 0 /100 WBC 0-0 uiwu=589) NEUTROPHILS RELATIVE PERCENT (BEAKER) (test 51 % yylf=076) LYMPHOCYTES RELATIVE PERCENT (BEAKER) (test 32 % crxn=431) MONOCYTES RELATIVE PERCENT (BEAKER) (test 12 % bbqm=475) EOSINOPHILS RELATIVE PERCENT (BEAKER) (test 5 % ggsr=860) BASOPHILS RELATIVE PERCENT (BEAKER) (test 1 % encx=166) NEUTROPHILS ABSOLUTE COUNT (BEAKER) (test 2.09 K/ L 1.78-5.38 bnbm=989) LYMPHOCYTES ABSOLUTE COUNT (BEAKER) (test 1.32 K/ L 1.32-3.57 zhkd=175) MONOCYTES ABSOLUTE COUNT (BEAKER) (test aqmk=977) 0.48 K/ L 0.30-0.82 EOSINOPHILS ABSOLUTE COUNT (BEAKER) (test 0.21 K/ L 0.04-0.54 kqug=590) BASOPHILS ABSOLUTE COUNT (BEAKER) (test zhcx=715) 0.02 K/ L 0.01-0.08 IMMATURE GRANULOCYTES-RELATIVE PERCENT (BEAKER) 0 % 0-1 (test vykh=2682) BLOOD [id number] 05:01:00 Test Item Value Reference Range Comments CULTURE (BEAKER) (test mwea=7337) No growth in 5 days BLOOD [id number] 05:01:00 Test Item Value Reference Range Comments CULTURE (BEAKER) (test bkqa=9397) No growth in 5 days (MANUAL DIFFERENTIAL)2017-09-06 14:09:00 Test Item Value Reference Range Comments NEUTROPHILS - REL (DIFF) (BEAKER) (test iytp=1448) 63 % LYMPHOCYTES - REL (DIFF) (BEAKER) (test gqhg=6792) 22 % MONOCYTES - REL (DIFF) (BEAKER) (test yuvv=5086) 8 % EOSINOPHILS - REL (DIFF) (BEAKER) (test djnf=0248) 6 % METAMYELOCYTES-REL (DIFF) (BEAKER) (test uomc=511) 1 % 0-0 NEUTROPHILS - ABS (DIFF) (BEAKER) (test cqeh=2608) 1.58 K/ L 1.80-8.00 LYMPHOCYTES - ABS (DIFF) (BEAKER) (test zfjr=5027) 0.55 K/ L 1.48-4.50 MONOCYTES - ABS (DIFF) (BEAKER) (test vshg=8893) 0.20 K/ L 0.00-1.30 EOSINOPHILS - ABS (DIFF) (BEAKER) (test vrpw=0148) 0.15 K/ L 0.00-0.50 METAMYELOCTYES - ABS (DIFF) (BEAKER) (test 0.03 K/ L 0.00-0.00 nqjj=923) TOTAL COUNTED (BEAKER) (test intk=6099) 100 WBC MORPHOLOGY (BEAKER) (test symf=997) Normal PLT MORPHOLOGY (BEAKER) (test ljov=634) Normal RBC MORPHOLOGY (BEAKER) (test euxo=723) Normal [id number] 06:38:00 Test Item Value Reference Range Comments MAGNESIUM (BEAKER) (test zbis=140) 1.3 mg/dL 1.6-2.6 BASIC METABOLIC [id number] 06:38:00 Test Item Value Reference Range Comments SODIUM (BEAKER) (test 140 meq/L 136-145 pqhf=965) POTASSIUM (BEAKER) (test 4.0 meq/L 3.5-5.1 lbyj=918) CHLORIDE (BEAKER) (test 112 meq/L 98-107 mnlp=867) CO2 (BEAKER) (test 21 meq/L 22-29 atad=801) BLOOD UREA NITROGEN 12 mg/dL 7-21 (BEAKER) (test jgwj=806) CREATININE (BEAKER) (test 1.06 mg/dL 0.57-1.25 jbnj=386) GLUCOSE RANDOM (BEAKER) 82 mg/dL 70-105 (test omaf=906) CALCIUM (BEAKER) (test 8.3 mg/dL 8.4-10.2 hkof=743) EGFR (BEAKER) (test 73 mL/min/1.73 sq m ESTIMATED GFR IS NOT gtjf=9290) ACCURATE CREATININE CLEARANCE IN PREDICTING GLOMERULAR FILTRATION RATE. ESTIMATED GFR IS NOT APPLICABLE FOR DIALYSIS PATIENTS. Specimen slightly ictericCBC W/PLT COUNT & AUTO [id number] 06:07 :00 Test Item Value Reference Range Comments WHITE BLOOD CELL COUNT (BEAKER) (test bbfm=435) 2.5 K/ L 3.5-10.5 RED BLOOD CELL COUNT (BEAKER) (test qfrb=542) 2.84 M/ L 4.63-6.08 HEMOGLOBIN (BEAKER) (test aiuv=205) 7.9 GM/DL 13.7-17.5 HEMATOCRIT (BEAKER) (test uvro=493) 24.9 % 40.1-51.0 MEAN CORPUSCULAR VOLUME (BEAKER) (test tryb=694) 87.7 fL 79.0-92.2 MEAN CORPUSCULAR HEMOGLOBIN (BEAKER) (test 27.8 pg 25.7-32.2 zijh=457) MEAN CORPUSCULAR HEMOGLOBIN CONC (BEAKER) (test 31.7 GM/DL 32.3-36.5 kcsc=865) RED CELL DISTRIBUTION WIDTH (BEAKER) (test 15.5 % 11.6-14.4 hgvz=824) PLATELET COUNT (BEAKER) (test tsgc=202) 61 K/CU MM 150-450 MEAN PLATELET VOLUME (BEAKER) (test cjfj=515) 9.3 fL 9.4-12.4 NUCLEATED RED BLOOD CELLS (BEAKER) (test 0 /100 WBC 0-0 zhca=758) IMMATURE GRANULOCYTES-RELATIVE PERCENT (BEAKER) 0 % 0-1 (test tfbe=8191) CBC W/PLT COUNT & AUTO [id number] 11:49:00 Test Item Value Reference Range Comments WHITE BLOOD CELL COUNT (BEAKER) (test rbol=203) 2.5 K/ L 3.5-10.5 RED BLOOD CELL COUNT (BEAKER) (test anbu=095) 2.41 M/ L 4.63-6.08 HEMOGLOBIN (BEAKER) (test mzxm=795) 6.5 GM/DL 13.7-17.5 HEMATOCRIT (BEAKER) (test pjus=985) 21.2 % 40.1-51.0 MEAN CORPUSCULAR VOLUME (BEAKER) (test xzlk=217) 88.0 fL 79.0-92.2 MEAN CORPUSCULAR HEMOGLOBIN (BEAKER) (test 27.0 pg 25.7-32.2 jifl=187) MEAN CORPUSCULAR HEMOGLOBIN CONC (BEAKER) (test 30.7 GM/DL 32.3-36.5 ogny=742) RED CELL DISTRIBUTION WIDTH (BEAKER) (test 16.0 % 11.6-14.4 kfts=848) PLATELET COUNT (BEAKER) (test emte=885) 60 K/CU MM 150-450 MEAN PLATELET VOLUME (BEAKER) (test nska=087) 10.3 fL 9.4-12.4 NUCLEATED RED BLOOD CELLS (BEAKER) (test 0 /100 WBC 0-0 wrcp=696) NEUTROPHILS RELATIVE PERCENT (BEAKER) (test 46 % jyhy=274) LYMPHOCYTES RELATIVE PERCENT (BEAKER) (test 38 % savl=103) MONOCYTES RELATIVE PERCENT (BEAKER) (test 11 % scie=542) EOSINOPHILS RELATIVE PERCENT (BEAKER) (test 4 % adks=370) BASOPHILS RELATIVE PERCENT (BEAKER) (test 0 % gldo=181) NEUTROPHILS ABSOLUTE COUNT (BEAKER) (test 1.15 K/ L 1.78-5.38 knyg=727) LYMPHOCYTES ABSOLUTE COUNT (BEAKER) (test 0.95 K/ L 1.32-3.57 sbmg=635) MONOCYTES ABSOLUTE COUNT (BEAKER) (test scxn=236) 0.28 K/ L 0.30-0.82 EOSINOPHILS ABSOLUTE COUNT (BEAKER) (test 0.10 K/ L 0.04-0.54 iplm=623) BASOPHILS ABSOLUTE COUNT (BEAKER) (test wyug=392) 0.00 K/ L 0.01-0.08 IMMATURE GRANULOCYTES-RELATIVE PERCENT (BEAKER) 0 % 0-1 (test iblf=5731) (MANUAL DIFFERENTIAL)2017-09-05 11:49:00 Test Item Value Reference Range Comments TOTAL COUNTED (BEAKER) (test gtyl=5851) WBC MORPHOLOGY (BEAKER) (test acyr=802) Normal PLT MORPHOLOGY (BEAKER) (test gsjv=492) Normal ACANTHOCYTES (BEAKER) (test oeho=123) 1+ few ANISOCYTOSIS (BEAKER) (test chhq=235) 1+ few HYPOCHROMIA (BEAKER) (test kqyr=777) 3+ many MACROCYTES (BEAKER) (test bobl=569) 1+ few OVALOCYTES (BEAKER) (test kuvf=471) 1+ few POIKILOCYTES (BEAKER) (test morv=058) 1+ few POLYCHROMATOPHILLIC RBCS(BEAKER) (test asmu=652) 1+ few [id number] 07:00:00 Test Item Value Reference Range Comments PHOSPHORUS (BEAKER) (test pxhh=829) 3.6 mg/dL 2.3-4.7 [id number] 07:00:00 Test Item Value Reference Range Comments MAGNESIUM (BEAKER) (test rilo=953) 1.4 mg/dL 1.6-2.6 BASIC METABOLIC [id number] 07:00:00 Test Item Value Reference Range Comments SODIUM (BEAKER) (test 139 meq/L 136-145 vzdp=422) POTASSIUM (BEAKER) (test 3.8 meq/L 3.5-5.1 wtfx=979) CHLORIDE (BEAKER) (test 112 meq/L 98-107 fgzd=896) CO2 (BEAKER) (test 22 meq/L 22-29 pcwe=868) BLOOD UREA NITROGEN 17 mg/dL 7-21 (BEAKER) (test rqys=208) CREATININE (BEAKER) (test 1.19 mg/dL 0.57-1.25 arae=352) GLUCOSE RANDOM (BEAKER) 83 mg/dL 70-105 (test cxbf=398) CALCIUM (BEAKER) (test 8.4 mg/dL 8.4-10.2 zdwh=792) EGFR (BEAKER) (test 64 mL/min/1.73 sq m ESTIMATED GFR IS NOT tnqf=7032) ACCURATE CREATININE CLEARANCE IN PREDICTING GLOMERULAR FILTRATION RATE. ESTIMATED GFR IS NOT APPLICABLE FOR DIALYSIS PATIENTS. Specimen slightly ictericHEPATIC FUNCTION [id number] 07:00:00 Test Item Value Reference Range Comments TOTAL PROTEIN (BEAKER) (test pixa=364) 5.8 gm/dL 6.0-8.3 ALBUMIN (BEAKER) (test bpwq=4360) 2.5 g/dL 3.5-5.0 BILIRUBIN TOTAL (BEAKER) (test hxhu=506) 2.5 mg/dL 0.2-1.2 BILIRUBIN DIRECT (BEAKER) (test mpjk=604) 1.3 mg/dL 0.1-0.5 ALKALINE PHOSPHATASE (BEAKER) (test eckh=476) 79 U/L 40-150 AST (SGOT) (BEAKER) (test wwua=699) 23 U/L 5-34 ALT (SGPT) (BEAKER) (test jhbx=083) 8 U/L 6-55 Specimen slightly ictericPROTHROMBIN [id number] 06:29:00 Test Item Value Reference Range Comments PROTIME (BEAKER) (test gkfi=144) 20.0 seconds 11.7-14.7 INR (BEAKER) (test mhkg=318) 1.7 <=5.9 RECOMMENDED COUMADIN/WARFARIN INR THERAPY RANGESSTANDARD DOSE: 2.0 - 3.0 Includes: PROPHYLAXIS forvenous thrombosis, systemic embolization; TREATMENT for venous thrombosis and/or pulmonary embolus.HIGH RISK: Target INR is 2.5-3.5 for patients with mechanical heart valves.PROTHROMBIN [id number] 10:46: 00 Test Item Value Reference Range Comments PROTIME (BEAKER) (test gyws=096) 14.0 seconds 9.8-12.0 INR (BEAKER) (test dbuk=881) 1.3 <=5.9 RECOMMENDED COUMADIN/WARFARIN INR THERAPY RANGESSTANDARD DOSE: 2.0 - 3.0 Includes: PROPHYLAXIS forvenous thrombosis, systemic embolization; TREATMENT for venous thrombosis and/or pulmonary embolus.HIGH RISK: Target INR is 2.5-3.5 for patients with mechanical heart valves.BASIC METABOLIC [id number] 10:39: 00 Test Item Value Reference Range Comments SODIUM (BEAKER) (test 137 meq/L 135-148 afdz=599) POTASSIUM (BEAKER) (test 4.4 meq/L 3.6-5.5 xurx=210) CHLORIDE (BEAKER) (test 110 meq/L 98-106 ttpp=695) CO2 (BEAKER) (test 23 meq/L 24-32 wmdg=352) BLOOD UREA NITROGEN 17 mg/dL 10-26 (BEAKER) (test jhud=999) CREATININE (BEAKER) (test 1.32 mg/dL 0.50-1.20 stwa=467) GLUCOSE RANDOM (BEAKER) 87 mg/dL 70-110 (test vabc=657) CALCIUM (BEAKER) (test 8.9 mg/dL 8.5-10.5 fwuj=238) EGFR (BEAKER) (test 57 mL/min/1.73 sq m ESTIMATED GFR IS NOT vhey=4782) ACCURATE CREATININE CLEARANCE IN PREDICTING GLOMERULAR FILTRATION RATE. ESTIMATED GFR IS NOT APPLICABLE FOR DIALYSIS PATIENTS. CBC W/PLT COUNT & AUTO [id number] 10:36:00 Test Item Value Reference Range Comments WHITE BLOOD CELL COUNT (BEAKER) (test ntyn=603) 3.9 10e3/ L 4.0-10.0 RED BLOOD CELL COUNT (BEAKER) (test aajz=785) 2.72 10e6/ L 4.20-5.80 HEMOGLOBIN (BEAKER) (test ralj=903) 7.6 g/dL 13.0-16.8 HEMATOCRIT (BEAKER) (test oiio=635) 22.9 % 40.0-50.0 MEAN CORPUSCULAR VOLUME (BEAKER) (test 84.1 fL 82.0-98.0 ipuu=202) MEAN CORPUSCULAR HEMOGLOBIN (BEAKER) (test 27.9 pg 27.0-33.0 fivq=960) MEAN CORPUSCULAR HEMOGLOBIN CONC (BEAKER) (test 33.2 g/dL 32.0-36.0 jbcq=592) RED CELL DISTRIBUTION WIDTH (BEAKER) (test 13.6 % 10.3-14.2 vnym=663) PLATELET COUNT (BEAKER) (test ebil=064) 82 10e3/ L 150-430 MEAN PLATELET VOLUME (BEAKER) (test rlzd=894) 7.8 fL 6.5-10.5 NEUTROPHILS RELATIVE PERCENT (BEAKER) (test 61 % yeil=801) LYMPHOCYTES RELATIVE PERCENT (BEAKER) (test 27 % hxpd=092) MONOCYTES RELATIVE PERCENT (BEAKER) (test 10 % koxz=047) EOSINOPHILS RELATIVE PERCENT (BEAKER) (test 2 % nscx=307) BASOPHILS RELATIVE PERCENT (BEAKER) (test 0 % hpso=616) NEUTROPHILS ABSOLUTE COUNT (BEAKER) (test 2.39 10e3/ L 1.80-8.00 span=956) LYMPHOCYTES ABSOLUTE COUNT (BEAKER) (test 1.06 10e3/ L 1.48-4.50 jfoo=635) MONOCYTES ABSOLUTE COUNT (BEAKER) (test 0.38 10e3/ L 0.00-1.30 cggw=834) EOSINOPHILS ABSOLUTE COUNT (BEAKER) (test 0.09 10e3/ L 0.00-0.50 ateu=431) BASOPHILS ABSOLUTE COUNT (BEAKER) (test 0.01 10e3/ L 0.00-0.20 wntg=095) BASIC METABOLIC [id number] 14:09:00 Test Item Value Reference Range Comments SODIUM (BEAKER) (test 140 meq/L 136-145 hwcc=445) POTASSIUM (BEAKER) (test 4.5 meq/L 3.5-5.1 gvhr=892) CHLORIDE (BEAKER) (test 111 meq/L 98-107 iajj=396) CO2 (BEAKER) (test 24 meq/L 22-29 bmcd=238) BLOOD UREA NITROGEN 14 mg/dL 7-21 (BEAKER) (test ulli=530) CREATININE (BEAKER) (test 1.10 mg/dL 0.57-1.25 hutu=064) GLUCOSE RANDOM (BEAKER) 89 mg/dL 70-105 (test imet=152) CALCIUM (BEAKER) (test 9.3 mg/dL 8.4-10.2 pgmj=513) EGFR (BEAKER) (test 70 mL/min/1.73 sq m ESTIMATED GFR IS NOT tmcd=5281) ACCURATE CREATININE CLEARANCE IN PREDICTING GLOMERULAR FILTRATION RATE. ESTIMATED GFR IS NOT APPLICABLE FOR DIALYSIS PATIENTS. Specimen slightly ictericHEPATIC FUNCTION [id number] 14:09:00 Test Item Value Reference Range Comments TOTAL PROTEIN (BEAKER) (test xsof=785) 7.4 gm/dL 6.0-8.3 ALBUMIN (BEAKER) (test ejsc=2839) 3.2 g/dL 3.5-5.0 BILIRUBIN TOTAL (BEAKER) (test grsk=121) 3.2 mg/dL 0.2-1.2 BILIRUBIN DIRECT (BEAKER) (test izmz=877) 1.4 mg/dL 0.1-0.5 ALKALINE PHOSPHATASE (BEAKER) (test albf=607) 114 U/L 40-150 AST (SGOT) (BEAKER) (test rgyv=793) 31 U/L 5-34 ALT (SGPT) (BEAKER) (test smnu=154) 17 U/L 6-55 Specimen slightly ictericCBC W/PLT COUNT & AUTO [id number] 12:55 :00 Test Item Value Reference Range Comments WHITE BLOOD CELL COUNT (BEAKER) (test cipi=497) 3.5 K/ L 3.5-10.5 RED BLOOD CELL COUNT (BEAKER) (test gygt=450) 3.04 M/ L 4.63-6.08 HEMOGLOBIN (BEAKER) (test oojo=266) 8.7 GM/DL 13.7-17.5 HEMATOCRIT (BEAKER) (test rjfm=475) 28.1 % 40.1-51.0 MEAN CORPUSCULAR VOLUME (BEAKER) (test qazn=583) 92.4 fL 79.0-92.2 MEAN CORPUSCULAR HEMOGLOBIN (BEAKER) (test 28.6 pg 25.7-32.2 lwth=713) MEAN CORPUSCULAR HEMOGLOBIN CONC (BEAKER) (test 31.0 GM/DL 32.3-36.5 kytc=223) RED CELL DISTRIBUTION WIDTH (BEAKER) (test 16.3 % 11.6-14.4 sscj=852) PLATELET COUNT (BEAKER) (test gugr=746) 73 K/CU MM 150-450 MEAN PLATELET VOLUME (BEAKER) (test knom=797) 10.7 fL 9.4-12.4 NUCLEATED RED BLOOD CELLS (BEAKER) (test 0 /100 WBC 0-0 fvnw=119) NEUTROPHILS RELATIVE PERCENT (BEAKER) (test 60 % tfsf=603) LYMPHOCYTES RELATIVE PERCENT (BEAKER) (test 26 % cdqy=253) MONOCYTES RELATIVE PERCENT (BEAKER) (test 8 % rotk=666) EOSINOPHILS RELATIVE PERCENT (BEAKER) (test 5 % menf=571) BASOPHILS RELATIVE PERCENT (BEAKER) (test 0 % svro=846) NEUTROPHILS ABSOLUTE COUNT (BEAKER) (test 2.09 K/ L 1.78-5.38 oqke=979) LYMPHOCYTES ABSOLUTE COUNT (BEAKER) (test 0.92 K/ L 1.32-3.57 nqdo=858) MONOCYTES ABSOLUTE COUNT (BEAKER) (test moho=521) 0.29 K/ L 0.30-0.82 EOSINOPHILS ABSOLUTE COUNT (BEAKER) (test 0.16 K/ L 0.04-0.54 fkjv=454) BASOPHILS ABSOLUTE COUNT (BEAKER) (test uoxr=564) 0.01 K/ L 0.01-0.08 IMMATURE GRANULOCYTES-RELATIVE PERCENT (BEAKER) 1 % 0-1 (test owfn=2598) PROTHROMBIN [id number] 12:52:00 Test Item Value Reference Range Comments PROTIME (BEAKER) (test dbxc=824) 19.2 seconds 11.7-14.7 INR (BEAKER) (test ugxh=003) 1.6 <=5.9 RECOMMENDED COUMADIN/WARFARIN INR THERAPY RANGESSTANDARD DOSE: 2.0 - 3.0 Includes: PROPHYLAXIS forvenous thrombosis, systemic embolization; TREATMENT for venous thrombosis and/or pulmonary embolus.HIGH RISK: Target INR is 2.5-3.5 for patients with mechanical heart valves.[id number] 12:52:00 Test Item Value Reference Range Comments FIBRINOGEN LEVEL (BEAKER) (test mqyn=412) 165 mg/dl 225-434 BLOOD [id number] 18:00:00 Test Item Value Reference Range Comments CULTURE (BEAKER) (test oife=7172) No growth in 5 days BLOOD [id number] 12:00:00 Test Item Value Reference Range Comments CULTURE (BEAKER) (test noyo=0454) No growth in 5 days CBC W/PLT COUNT & AUTO [id number] 13:14:00 Test Item Value Reference Range Comments WHITE BLOOD CELL COUNT 2.8 K/ L 3.5-10.5 (BEAKER) (test rgkl=942) RED BLOOD CELL COUNT (BEAKER) 2.74 M/ L 4.63-6.08 (test fysb=588) HEMOGLOBIN (BEAKER) (test 8.0 GM/DL 13.7-17.5 mpyt=170) HEMATOCRIT (BEAKER) (test 24.3 % 40.1-51.0 aqpo=589) MEAN CORPUSCULAR VOLUME 88.7 fL 79.0-92.2 (BEAKER) (test aczi=170) MEAN CORPUSCULAR HEMOGLOBIN 29.2 pg 25.7-32.2 (BEAKER) (test dmpy=483) MEAN CORPUSCULAR HEMOGLOBIN 32.9 GM/DL 32.3-36.5 CONC (BEAKER) (test zgkm=513) RED CELL DISTRIBUTION WIDTH 15.2 % 11.6-14.4 (BEAKER) (test mhlk=289) PLATELET COUNT (BEAKER) (test 51 K/CU MM 150-450 jifs=699) MEAN PLATELET VOLUME (BEAKER) 9.7 fL 9.4-12.4 (test lwwq=592) NUCLEATED RED BLOOD CELLS 0 /100 WBC 0-0 (BEAKER) (test vxgd=131) IMMATURE GRANULOCYTES-RELATIVE 0 % 0-1 PERCENT (BEAKER) (test gfkj=9911) NEUTROPHILS RELATIVE PERCENT 54 % This is an appended report. (BEAKER) (test yyrb=626) These results have been appended to a previously final verified report. LYMPHOCYTES RELATIVE PERCENT 31 % This is an appended report. (BEAKER) (test qlvt=939) These results have been appended to a previously final verified report. MONOCYTES RELATIVE PERCENT 10 % This is an appended report. (BEAKER) (test lqxe=607) These results have been appended to a previously final verified report. EOSINOPHILS RELATIVE PERCENT 4 % This is an appended report. (BEAKER) (test dmye=644) These results have been appended to a previously final verified report. BASOPHILS RELATIVE PERCENT 0 % This is an appended report. (BEAKER) (test ceyj=786) These results have been appended to a previously final verified report. NEUTROPHILS ABSOLUTE COUNT 1.53 K/ L 1.78-5.38 This is an appended report. (BEAKER) (test euny=944) These results have been appended to a previously final verified report. LYMPHOCYTES ABSOLUTE COUNT 0.88 K/ L 1.32-3.57 This is an appended report. (BEAKER) (test qtpc=001) These results have been appended to a previously final verified report. MONOCYTES ABSOLUTE COUNT 0.28 K/ L 0.30-0.82 This is an appended report. (BEAKER) (test qdwa=690) These results have been appended to a previously final verified report. EOSINOPHILS ABSOLUTE COUNT 0.12 K/ L 0.04-0.54 This is an appended report. (BEAKER) (test ejtu=776) These results have been appended to a previously final verified report. BASOPHILS ABSOLUTE COUNT 0.01 K/ L 0.01-0.08 This is an appended report. (BEAKER) (test mnek=129) These results have been appended to a previously final verified report. (MANUAL DIFFERENTIAL)2017-07-20 13:14:00 Test Item Value Reference Range Comments TOTAL COUNTED (BEAKER) (test ojij=0386) [id number] 05:51:00 Test Item Value Reference Range Comments MAGNESIUM (BEAKER) (test gmop=921) 1.5 mg/dL 1.6-2.6 BASIC METABOLIC [id number] 05:51:00 Test Item Value Reference Range Comments SODIUM (BEAKER) (test 139 meq/L 136-145 itag=456) POTASSIUM (BEAKER) (test 3.9 meq/L 3.5-5.1 errm=700) CHLORIDE (BEAKER) (test 111 meq/L 98-107 xrsf=742) CO2 (BEAKER) (test 22 meq/L 22-29 nwxe=593) BLOOD UREA NITROGEN 12 mg/dL 7-21 (BEAKER) (test xobj=980) CREATININE (BEAKER) (test 0.97 mg/dL 0.57-1.25 pczz=724) GLUCOSE RANDOM (BEAKER) 85 mg/dL 70-105 (test pmpw=002) CALCIUM (BEAKER) (test 8.9 mg/dL 8.4-10.2 ttpn=816) EGFR (BEAKER) (test 81 mL/min/1.73 sq m ESTIMATED GFR IS NOT gokf=2425) ACCURATE CREATININE CLEARANCE IN PREDICTING GLOMERULAR FILTRATION RATE. ESTIMATED GFR IS NOT APPLICABLE FOR DIALYSIS PATIENTS. Specimen moderately ictericHEPATIC FUNCTION [id number] 05:51:00 Test Item Value Reference Range Comments TOTAL PROTEIN (BEAKER) (test bdws=029) 6.4 gm/dL 6.0-8.3 ALBUMIN (BEAKER) (test tatp=0629) 3.1 g/dL 3.5-5.0 BILIRUBIN TOTAL (BEAKER) (test vguz=933) 3.5 mg/dL 0.2-1.2 BILIRUBIN DIRECT (BEAKER) (test vwsv=951) 1.4 mg/dL 0.1-0.5 ALKALINE PHOSPHATASE (BEAKER) (test uiuf=045) 85 U/L 40-150 AST (SGOT) (BEAKER) (test agvb=288) 28 U/L 5-34 ALT (SGPT) (BEAKER) (test wxfy=133) 13 U/L 6-55 Specimen moderately ictericPROTHROMBIN [id number] 05:30:00 Test Item Value Reference Range Comments PROTIME (BEAKER) (test mpen=380) 20.4 seconds 11.7-14.7 INR (BEAKER) (test eyio=103) 1.8 <=5.9 RECOMMENDED COUMADIN/WARFARIN INR THERAPY RANGESSTANDARD DOSE: 2.0 - 3.0 Includes: PROPHYLAXIS forvenous thrombosis, systemic embolization; TREATMENT for venous thrombosis and/or pulmonary embolus.HIGH RISK: Target INR is 2.5-3.5 for patients with mechanical heart valves.CBC W/PLT COUNT & AUTO [id number] 13:27:00 Test Item Value Reference Range Comments WHITE BLOOD CELL COUNT 2.8 K/ L 3.5-10.5 (BEAKER) (test qxjl=250) RED BLOOD CELL COUNT (BEAKER) 2.72 M/ L 4.63-6.08 (test hmtt=991) HEMOGLOBIN (BEAKER) (test 8.0 GM/DL 13.7-17.5 vgbj=760) HEMATOCRIT (BEAKER) (test 24.2 % 40.1-51.0 bbqp=101) MEAN CORPUSCULAR VOLUME 89.0 fL 79.0-92.2 (BEAKER) (test dosh=486) MEAN CORPUSCULAR HEMOGLOBIN 29.4 pg 25.7-32.2 (BEAKER) (test tfsd=287) MEAN CORPUSCULAR HEMOGLOBIN 33.1 GM/DL 32.3-36.5 CONC (BEAKER) (test bucl=414) RED CELL DISTRIBUTION WIDTH 15.3 % 11.6-14.4 (BEAKER) (test xeur=555) PLATELET COUNT (BEAKER) (test 56 K/CU MM 150-450 fzrr=505) MEAN PLATELET VOLUME (BEAKER) 10.4 fL 9.4-12.4 (test apdv=239) NUCLEATED RED BLOOD CELLS 0 /100 WBC 0-0 (BEAKER) (test evll=357) IMMATURE GRANULOCYTES-RELATIVE 0 % 0-1 PERCENT (BEAKER) (test derg=4987) NEUTROPHILS RELATIVE PERCENT 46 % This is an appended report. (BEAKER) (test soey=980) These results have been appended to a previously final verified report. LYMPHOCYTES RELATIVE PERCENT 39 % This is an appended report. (BEAKER) (test wmfj=295) These results have been appended to a previously final verified report. MONOCYTES RELATIVE PERCENT 11 % This is an appended report. (BEAKER) (test ggkf=548) These results have been appended to a previously final verified report. EOSINOPHILS RELATIVE PERCENT 4 % This is an appended report. (BEAKER) (test shop=657) These results have been appended to a previously final verified report. BASOPHILS RELATIVE PERCENT 0 % This is an appended report. (BEAKER) (test cqrf=749) These results have been appended to a previously final verified report. NEUTROPHILS ABSOLUTE COUNT 1.26 K/ L 1.78-5.38 This is an appended report. (BEAKER) (test rfmw=949) These results have been appended to a previously final verified report. LYMPHOCYTES ABSOLUTE COUNT 1.08 K/ L 1.32-3.57 This is an appended report. (BEAKER) (test wfzt=404) These results have been appended to a previously final verified report. MONOCYTES ABSOLUTE COUNT 0.29 K/ L 0.30-0.82 This is an appended report. (BEAKER) (test dazl=773) These results have been appended to a previously final verified report. EOSINOPHILS ABSOLUTE COUNT 0.11 K/ L 0.04-0.54 This is an appended report. (BEAKER) (test vbac=077) These results have been appended to a previously final verified report. BASOPHILS ABSOLUTE COUNT 0.01 K/ L 0.01-0.08 This is an appended report. (BEAKER) (test nyvn=731) These results have been appended to a previously final verified report. URINE [id number] 10:44:00 Test Item Value Reference Range Comments CULTURE (BEAKER) (test 10-19,000 col/mL skin val krhi=8320) [id number] 07:18:00 Test Item Value Reference Range Comments FERRITIN (BEAKER) (test fyyr=427) 27 ng/mL 5-275 VITAMIN B12 AND [id number] 07:18:00 Test Item Value Reference Range Comments VITAMIN B12 (BEAKER) (test wlgf=588) 1672 pg/mL 213-816 FOLATE (BEAKER) (test ucmc=163) 16.9 ng/mL >=7.0 IRON, TIBC, % SAT. (WITHOUT FERRITIN)2017-07-19 06:46:00 Test Item Value Reference Range Comments IRON (BEAKER) (test nvyz=994) 77 ug/dL 40-160 TOTAL IRON BINDING CAPACITY (BEAKER) (test 210 ug/dL 250-450 tcgw=623) IRON % SATURATION (2) (BEAKER) (test bibv=7348) 37 % 20-55 [id number] 06:46:00 Test Item Value Reference Range Comments MAGNESIUM (BEAKER) (test kyro=445) 2.4 mg/dL 1.6-2.6 BASIC METABOLIC [id number] 06:46:00 Test Item Value Reference Range Comments SODIUM (BEAKER) (test 139 meq/L 136-145 zglb=582) POTASSIUM (BEAKER) (test 3.7 meq/L 3.5-5.1 xrfg=471) CHLORIDE (BEAKER) (test 112 meq/L 98-107 ousp=422) CO2 (BEAKER) (test 21 meq/L 22-29 lddi=155) BLOOD UREA NITROGEN 15 mg/dL 7-21 (BEAKER) (test clxv=822) CREATININE (BEAKER) (test 1.14 mg/dL 0.57-1.25 hdzu=185) GLUCOSE RANDOM (BEAKER) 88 mg/dL 70-105 (test tanh=745) CALCIUM (BEAKER) (test 8.8 mg/dL 8.4-10.2 urxg=362) EGFR (BEAKER) (test 67 mL/min/1.73 sq m ESTIMATED GFR IS NOT zahs=2369) ACCURATE CREATININE CLEARANCE IN PREDICTING GLOMERULAR FILTRATION RATE. ESTIMATED GFR IS NOT APPLICABLE FOR DIALYSIS PATIENTS. Specimen slightly ictericHEPATIC FUNCTION [id number] 06:46:00 Test Item Value Reference Range Comments TOTAL PROTEIN (BEAKER) (test umcn=377) 6.7 gm/dL 6.0-8.3 ALBUMIN (BEAKER) (test tkfy=3888) 3.2 g/dL 3.5-5.0 BILIRUBIN TOTAL (BEAKER) (test ckpj=772) 2.9 mg/dL 0.2-1.2 BILIRUBIN DIRECT (BEAKER) (test vbvj=820) 1.2 mg/dL 0.1-0.5 ALKALINE PHOSPHATASE (BEAKER) (test rapo=913) 86 U/L 40-150 AST (SGOT) (BEAKER) (test swjq=738) 21 U/L 5-34 ALT (SGPT) (BEAKER) (test nmiw=360) 11 U/L 6-55 Specimen slightly ictericPROTHROMBIN [id number] 06:09:00 Test Item Value Reference Range Comments PROTIME (BEAKER) (test frde=298) 18.9 seconds 11.7-14.7 INR (BEAKER) (test qtfh=774) 1.6 <=5.9 RECOMMENDED COUMADIN/WARFARIN INR THERAPY RANGESSTANDARD DOSE: 2.0 - 3.0 Includes: PROPHYLAXIS forvenous thrombosis, systemic embolization; TREATMENT for venous thrombosis and/or pulmonary embolus.HIGH RISK: Target INR is 2.5-3.5 for patients with mechanical heart valves.RETICULOCYTE [id number] 06:01:00 Test Item Value Reference Range Comments RETICULOCYTE COUNT PCT (BEAKER) (test jqgx=397) 2.1 % 0.5-1.8 CREATININE, RANDOM [id number] 17:42:00 Test Item Value Reference Range Comments CREATININE URINE (BEAKER) (test zkqk=584) 219.3 mg/dL Reference Range: No NormalsSODIUM, RANDOM [id number] 17:41:00 Test Item Value Reference Range Comments SODIUM URINE (BEAKER) (test rgsx=227) 114 meq/L Reference Range: No NormalsBASIC METABOLIC [id number] 06:28:00 Test Item Value Reference Range Comments SODIUM (BEAKER) (test 140 meq/L 136-145 jbsn=187) POTASSIUM (BEAKER) (test 4.0 meq/L 3.5-5.1 zelf=898) CHLORIDE (BEAKER) (test 114 meq/L 98-107 tcao=506) CO2 (BEAKER) (test 19 meq/L 22-29 bunx=507) BLOOD UREA NITROGEN 16 mg/dL 7-21 (BEAKER) (test pqfv=970) CREATININE (BEAKER) (test 1.35 mg/dL 0.57-1.25 swpr=126) GLUCOSE RANDOM (BEAKER) 91 mg/dL 70-105 (test mjnz=174) CALCIUM (BEAKER) (test 8.9 mg/dL 8.4-10.2 zqio=990) EGFR (BEAKER) (test 55 mL/min/1.73 sq m ESTIMATED GFR IS NOT tpfy=8974) ACCURATE CREATININE CLEARANCE IN PREDICTING GLOMERULAR FILTRATION RATE. ESTIMATED GFR IS NOT APPLICABLE FOR DIALYSIS PATIENTS. Specimen slightly ictericHEPATIC FUNCTION [id number] 06:28:00 Test Item Value Reference Range Comments TOTAL PROTEIN (BEAKER) (test oaug=427) 6.6 gm/dL 6.0-8.3 ALBUMIN (BEAKER) (test qkff=5741) 2.6 g/dL 3.5-5.0 BILIRUBIN TOTAL (BEAKER) (test dzbb=711) 2.6 mg/dL 0.2-1.2 BILIRUBIN DIRECT (BEAKER) (test tyjm=102) 1.2 mg/dL 0.1-0.5 ALKALINE PHOSPHATASE (BEAKER) (test azby=873) 101 U/L 40-150 AST (SGOT) (BEAKER) (test vtsx=930) 25 U/L 5-34 ALT (SGPT) (BEAKER) (test ryqz=242) 13 U/L 6-55 Specimen slightly ictericPT/[id number] 06:12:00 Test Item Value Reference Range Comments PROTIME (BEAKER) (test xzuo=309) 18.6 seconds 11.7-14.7 INR (BEAKER) (test prxe=711) 1.6 <=5.9 PARTIAL THROMBOPLASTIN TIME (BEAKER) (test 45.6 seconds 22.5-36.0 fjyx=557) RECOMMENDED COUMADIN/WARFARIN INR THERAPY RANGESSTANDARD DOSE: 2.0 - 3.0 Includes: PROPHYLAXIS forvenous thrombosis, systemic embolization; TREATMENT for venous thrombosis and/or pulmonary embolus.HIGH RISK: Target INR is 2.5-3.5 for patients with mechanical heart valves.PROTHROMBIN [id number] 06:11: 00 Test Item Value Reference Range Comments PROTIME (BEAKER) (test upqc=025) 18.6 seconds 11.7-14.7 INR (BEAKER) (test ndig=650) 1.6 <=5.9 RECOMMENDED COUMADIN/WARFARIN INR THERAPY RANGESSTANDARD DOSE: 2.0 - 3.0 Includes: PROPHYLAXIS forvenous thrombosis, systemic embolization; TREATMENT for venous thrombosis and/or pulmonary embolus.HIGH RISK: Target INR is 2.5-3.5 for patients with mechanical heart valves.CBC W/PLT COUNT & AUTO [id number] 04:46:00 Test Item Value Reference Range Comments WHITE BLOOD CELL COUNT (BEAKER) (test sxel=963) 3.7 K/ L 3.5-10.5 RED BLOOD CELL COUNT (BEAKER) (test tjip=782) 2.90 M/ L 4.63-6.08 HEMOGLOBIN (BEAKER) (test bidb=966) 8.5 GM/DL 13.7-17.5 HEMATOCRIT (BEAKER) (test qddd=525) 26.2 % 40.1-51.0 MEAN CORPUSCULAR VOLUME (BEAKER) (test kscg=457) 90.3 fL 79.0-92.2 MEAN CORPUSCULAR HEMOGLOBIN (BEAKER) (test 29.3 pg 25.7-32.2 ewon=432) MEAN CORPUSCULAR HEMOGLOBIN CONC (BEAKER) (test 32.4 GM/DL 32.3-36.5 nvos=355) RED CELL DISTRIBUTION WIDTH (BEAKER) (test 15.6 % 11.6-14.4 hmso=300) PLATELET COUNT (BEAKER) (test cseg=499) 68 K/CU MM 150-450 MEAN PLATELET VOLUME (BEAKER) (test zyns=087) 10.1 fL 9.4-12.4 NUCLEATED RED BLOOD CELLS (BEAKER) (test 0 /100 WBC 0-0 geam=354) NEUTROPHILS RELATIVE PERCENT (BEAKER) (test 49 % bdjd=615) LYMPHOCYTES RELATIVE PERCENT (BEAKER) (test 37 % rgkl=332) MONOCYTES RELATIVE PERCENT (BEAKER) (test 10 % ofnp=470) EOSINOPHILS RELATIVE PERCENT (BEAKER) (test 4 % oole=718) BASOPHILS RELATIVE PERCENT (BEAKER) (test 0 % lljs=715) NEUTROPHILS ABSOLUTE COUNT (BEAKER) (test 1.82 K/ L 1.78-5.38 mtuz=978) LYMPHOCYTES ABSOLUTE COUNT (BEAKER) (test 1.37 K/ L 1.32-3.57 yvqa=832) MONOCYTES ABSOLUTE COUNT (BEAKER) (test bjcq=428) 0.37 K/ L 0.30-0.82 EOSINOPHILS ABSOLUTE COUNT (BEAKER) (test 0.15 K/ L 0.04-0.54 vxri=733) BASOPHILS ABSOLUTE COUNT (BEAKER) (test frlb=557) 0.01 K/ L 0.01-0.08 IMMATURE GRANULOCYTES-RELATIVE PERCENT (BEAKER) 0 % 0-1 (test hvta=3067) URINALYSIS W/ [id number] 17:31:00 Test Item Value Reference Range Comments COLOR (BEAKER) (test ijnb=852) Yellow CLARITY (BEAKER) (test qwky=469) Hazy SPECIFIC GRAVITY UA (BEAKER) (test okma=163) 1.017 1.001-1.035 PH UA (BEAKER) (test lgyj=242) 7.5 5.0-8.0 PROTEIN UA (BEAKER) (test hbqh=312) Negative Negative GLUCOSE UA (BEAKER) (test ryrf=767) Negative Negative KETONES UA (BEAKER) (test gbqw=340) Negative Negative BILIRUBIN UA (BEAKER) (test ozqi=465) Negative Negative BLOOD UA (BEAKER) (test kgll=214) Negative Negative NITRITE UA (BEAKER) (test itsl=622) Negative Negative LEUKOCYTE ESTERASE UA (BEAKER) (test vnnq=792) Negative Negative UROBILINOGEN UA (BEAKER) (test qtul=034) 2.0 mg/dL 0.2-1.0 RBC UA (BEAKER) (test zrzy=927) 0 /HPF WBC UA (BEAKER) (test pldf=325) 0 /HPF AMORPHOUS CRYSTALS (BEAKER) (test cdnz=8188) Occasional SOURCE(BEAKER) (test vehr=7054) [id number] 15:26:00 Test Item Value Reference Range Comments PHOSPHORUS (BEAKER) (test dkdx=087) 3.1 mg/dL 2.3-4.7 [id number] 15:26:00 Test Item Value Reference Range Comments MAGNESIUM (BEAKER) (test uozp=211) 1.5 mg/dL 1.6-2.6 TSH/FREE T4 IF [id number] 11:08:00 Test Item Value Reference Range Comments THYROID STIMULATING HORMONE (BEAKER) (test 1.32 uIU/mL 0.35-4.94 opxh=078) [id number] 10:51:00 Test Item Value Reference Range Comments AMYLASE (BEAKER) (test gpbw=604) 120 U/L 25-125 Specimen slightly ictericBASIC METABOLIC [id number] 10:51:00 Test Item Value Reference Range Comments SODIUM (BEAKER) (test 140 meq/L 136-145 ykgd=476) POTASSIUM (BEAKER) (test 4.1 meq/L 3.5-5.1 doyz=860) CHLORIDE (BEAKER) (test 111 meq/L 98-107 agot=594) CO2 (BEAKER) (test 23 meq/L 22-29 vwch=373) BLOOD UREA NITROGEN 15 mg/dL 7-21 (BEAKER) (test icfj=848) CREATININE (BEAKER) (test 1.15 mg/dL 0.57-1.25 tftk=860) GLUCOSE RANDOM (BEAKER) 93 mg/dL 70-105 (test kdvq=941) CALCIUM (BEAKER) (test 9.1 mg/dL 8.4-10.2 bubi=203) EGFR (BEAKER) (test 66 mL/min/1.73 sq m ESTIMATED GFR IS NOT zcli=0976) ACCURATE CREATININE CLEARANCE IN PREDICTING GLOMERULAR FILTRATION RATE. ESTIMATED GFR IS NOT APPLICABLE FOR DIALYSIS PATIENTS. Specimen slightly ictericHEPATIC FUNCTION [id number] 10:51:00 Test Item Value Reference Range Comments TOTAL PROTEIN (BEAKER) (test yltn=402) 7.4 gm/dL 6.0-8.3 ALBUMIN (BEAKER) (test hpst=5955) 3.0 g/dL 3.5-5.0 BILIRUBIN TOTAL (BEAKER) (test qmsl=629) 2.7 mg/dL 0.2-1.2 BILIRUBIN DIRECT (BEAKER) (test zilc=840) 1.2 mg/dL 0.1-0.5 ALKALINE PHOSPHATASE (BEAKER) (test dxzj=061) 116 U/L 40-150 AST (SGOT) (BEAKER) (test tzyb=557) 25 U/L 5-34 ALT (SGPT) (BEAKER) (test rcnq=925) 16 U/L 6-55 Specimen slightly [id number] 10:51:00 Test Item Value Reference Range Comments LIPASE (BEAKER) (test tmfa=037) 164 U/L 8-78 Specimen slightly [id number] 10:46:00 Test Item Value Reference Range Comments AMMONIA (BEAKER) (test 111 mol/L 18-72 Specimen slightly hemolyzed jugu=235) CBC W/PLT COUNT & AUTO [id number] 10:23:00 Test Item Value Reference Range Comments WHITE BLOOD CELL COUNT (BEAKER) (test gmki=421) 3.6 K/ L 3.5-10.5 RED BLOOD CELL COUNT (BEAKER) (test lyup=585) 3.19 M/ L 4.63-6.08 HEMOGLOBIN (BEAKER) (test kwha=513) 9.2 GM/DL 13.7-17.5 HEMATOCRIT (BEAKER) (test xxow=225) 28.8 % 40.1-51.0 MEAN CORPUSCULAR VOLUME (BEAKER) (test kqto=499) 90.3 fL 79.0-92.2 MEAN CORPUSCULAR HEMOGLOBIN (BEAKER) (test 28.8 pg 25.7-32.2 kifw=074) MEAN CORPUSCULAR HEMOGLOBIN CONC (BEAKER) (test 31.9 GM/DL 32.3-36.5 omst=735) RED CELL DISTRIBUTION WIDTH (BEAKER) (test 15.7 % 11.6-14.4 utte=267) PLATELET COUNT (BEAKER) (test bwoi=759) 74 K/CU MM 150-450 MEAN PLATELET VOLUME (BEAKER) (test jnfv=752) 10.1 fL 9.4-12.4 NUCLEATED RED BLOOD CELLS (BEAKER) (test 0 /100 WBC 0-0 bkll=203) NEUTROPHILS RELATIVE PERCENT (BEAKER) (test 58 % zaua=919) LYMPHOCYTES RELATIVE PERCENT (BEAKER) (test 30 % ahow=004) MONOCYTES RELATIVE PERCENT (BEAKER) (test 7 % velt=740) EOSINOPHILS RELATIVE PERCENT (BEAKER) (test 5 % iter=232) BASOPHILS RELATIVE PERCENT (BEAKER) (test 0 % bgyo=240) NEUTROPHILS ABSOLUTE COUNT (BEAKER) (test 2.13 K/ L 1.78-5.38 smzo=289) LYMPHOCYTES ABSOLUTE COUNT (BEAKER) (test 1.08 K/ L 1.32-3.57 cnkn=924) MONOCYTES ABSOLUTE COUNT (BEAKER) (test wnsp=843) 0.25 K/ L 0.30-0.82 EOSINOPHILS ABSOLUTE COUNT (BEAKER) (test 0.17 K/ L 0.04-0.54 ofzf=673) BASOPHILS ABSOLUTE COUNT (BEAKER) (test xcqt=360) 0.01 K/ L 0.01-0.08 IMMATURE GRANULOCYTES-RELATIVE PERCENT (BEAKER) 0 % 0-1 (test mgsf=5523) CT, BRAIN, WITHOUT [id number] 10:18:00Ref Phys: Rubia Howell for exam:->headacheWhat is the patient's sedation requirement?- >No SedationFINAL REPORT CT head without contrast INDICATION: Confusion, delirium, headache TECHNIQUE: Axial noncontrast CT images through the head were obtained. This exam was performed according to our departmental dose optimization program which includes automated exposure control , adjustment of the mA and/or kV according to patient size and/or use of iterative reconstruction technique.COMPARISON: MR brain 12/22/2016, CT head 2016 FINDINGS:Right frontal craniotomy and cranioplasty changes are noted with right frontal lobe encephalomalacia extending to the frontal horn. Microvascular ischemic changes are chronic appearing. No acute hemorrhage or mass effect is evident. Please note that CT is insensitive for early or small infarcts. Generalized volume loss and vascular consultations are noted. There is no hydrocephalus or midline shift. There is minimal chronic sinus mucosal disease. The mastoid air cells and orbits are unremarkable. IMPRESSION: No acute intracranial hemorrhage or mass effect. Stable postsurgical changes with right frontal encephalomalacia. Chronic appearing microvascular and involutional changes. If there is persistent concern for acute abnormality, MRI is advised. Signed: Fish Moser MDReport Verified Date/Time: 2016 10:18:52 Reading Location: [facility] B1 C013V Neuro Reading Room 10:18 AMRAD, CHEST, 1 VIEW, NON [id number] 10:09:00Ref Phys: Rubia Howell for exam:->chest painShould this be performed at the bedside?->YesFINAL REPORT AP view of the chest dated 07/17/2017 CLINICAL INFORMATION: chest pain Comment: Heart is normal in size. Pulmonary vasculature is unremarkable. Lungs are clear. Nopulmonary infiltrate or pleural effusion is present. Impression: No active cardiopulmonary disease. Signed: Jessica Hemphill Verified Date/Time: 07/17/2017 10:09:30 Reading Location: [facility] Radiology Reading Room CBC W/PLT COUNT & AUTO [id number] 12:30:00 Test Item Value Reference Range Comments WHITE BLOOD CELL COUNT (BEAKER) (test qajc=645) 4.2 K/ L 3.5-10.5 RED BLOOD CELL COUNT (BEAKER) (test goec=782) 3.42 M/ L 4.63-6.08 HEMOGLOBIN (BEAKER) (test iqjw=397) 10.0 GM/DL 13.7-17.5 HEMATOCRIT (BEAKER) (test njgr=259) 31.2 % 40.1-51.0 MEAN CORPUSCULAR VOLUME (BEAKER) (test ixty=394) 91.2 fL 79.0-92.2 MEAN CORPUSCULAR HEMOGLOBIN (BEAKER) (test 29.2 pg 25.7-32.2 eccw=760) MEAN CORPUSCULAR HEMOGLOBIN CONC (BEAKER) (test 32.1 GM/DL 32.3-36.5 xdkl=253) RED CELL DISTRIBUTION WIDTH (BEAKER) (test 15.5 % 11.6-14.4 gvpv=225) PLATELET COUNT (BEAKER) (test yohm=567) 88 K/CU MM 150-450 MEAN PLATELET VOLUME (BEAKER) (test wpkg=155) 10.3 fL 9.4-12.4 NUCLEATED RED BLOOD CELLS (BEAKER) (test 0 /100 WBC 0-0 nsej=946) NEUTROPHILS RELATIVE PERCENT (BEAKER) (test 59 % fkaf=123) LYMPHOCYTES RELATIVE PERCENT (BEAKER) (test 28 % jmty=889) MONOCYTES RELATIVE PERCENT (BEAKER) (test 8 % lygf=466) EOSINOPHILS RELATIVE PERCENT (BEAKER) (test 5 % adlb=993) BASOPHILS RELATIVE PERCENT (BEAKER) (test 0 % vapy=711) NEUTROPHILS ABSOLUTE COUNT (BEAKER) (test 2.47 K/ L 1.78-5.38 goab=122) LYMPHOCYTES ABSOLUTE COUNT (BEAKER) (test 1.15 K/ L 1.32-3.57 prgv=403) MONOCYTES ABSOLUTE COUNT (BEAKER) (test uvex=080) 0.35 K/ L 0.30-0.82 EOSINOPHILS ABSOLUTE COUNT (BEAKER) (test 0.20 K/ L 0.04-0.54 bqfe=509) BASOPHILS ABSOLUTE COUNT (BEAKER) (test tqsk=196) 0.01 K/ L 0.01-0.08 IMMATURE GRANULOCYTES-RELATIVE PERCENT (BEAKER) 0 % 0-1 (test cwdf=4978) CARCINOEMBRYONIC ANTIGEN (CEA)2017-07-10 11:44:00 Test Item Value Reference Range Comments CARCINOEMBRYONIC ANTIGEN (BEAKER) (test wpry=548) 7.3 ng/mL 0.0-5.0 PROTHROMBIN [id number] 11:24:00 Test Item Value Reference Range Comments PROTIME (BEAKER) (test kdee=986) 16.8 seconds 11.7-14.7 INR (BEAKER) (test dxan=943) 1.4 <=5.9 RECOMMENDED COUMADIN/WARFARIN INR THERAPY RANGESSTANDARD DOSE: 2.0 - 3.0 Includes: PROPHYLAXIS forvenous thrombosis, systemic embolization; TREATMENT for venous thrombosis and/or pulmonary embolus.HIGH RISK: Target INR is 2.5-3.5 for patients with mechanical heart valves.BASIC METABOLIC [id number] 11:21: 00 Test Item Value Reference Range Comments SODIUM (BEAKER) (test 140 meq/L 136-145 jhkk=638) POTASSIUM (BEAKER) (test 4.3 meq/L 3.5-5.1 vazg=933) CHLORIDE (BEAKER) (test 110 meq/L 98-107 ykaw=197) CO2 (BEAKER) (test 23 meq/L 22-29 rljp=925) BLOOD UREA NITROGEN 12 mg/dL 7-21 (BEAKER) (test flcc=408) CREATININE (BEAKER) (test 1.10 mg/dL 0.57-1.25 nyvk=690) GLUCOSE RANDOM (BEAKER) 88 mg/dL 70-105 (test fdxb=756) CALCIUM (BEAKER) (test 9.4 mg/dL 8.4-10.2 jvvh=871) EGFR (BEAKER) (test 70 mL/min/1.73 sq m ESTIMATED GFR IS NOT wgqv=2528) ACCURATE CREATININE CLEARANCE IN PREDICTING GLOMERULAR FILTRATION RATE. ESTIMATED GFR IS NOT APPLICABLE FOR DIALYSIS PATIENTS. Specimen moderately ictericHEPATIC FUNCTION [id number] 11:21:00 Test Item Value Reference Range Comments TOTAL PROTEIN (BEAKER) (test wzaj=271) 8.0 gm/dL 6.0-8.3 ALBUMIN (BEAKER) (test nyld=7928) 3.2 g/dL 3.5-5.0 BILIRUBIN TOTAL (BEAKER) (test pcvg=375) 3.3 mg/dL 0.2-1.2 BILIRUBIN DIRECT (BEAKER) (test esrc=170) 1.4 mg/dL 0.1-0.5 ALKALINE PHOSPHATASE (BEAKER) (test bgkk=214) 129 U/L 40-150 AST (SGOT) (BEAKER) (test owjr=866) 32 U/L 5-34 ALT (SGPT) (BEAKER) (test acxw=239) 15 U/L 6-55 Specimen moderately ictericGAMMA GLUTAMYL TRANSFERASE (GGT)2017-07-10 11:21:00 Test Item Value Reference Range Comments GAMMA GLUTAMYL TRANSFERASE (BEAKER) (test lsxl=370) 51 U/L 9-64 Specimen moderately ictericMISCELLANEOUS LAB [id number] 08:53:00 Test Item Value Reference Range Comments SCAN RESULT (test ssik=[id number]) URINALYSIS W/ [id number] 13:45:00 Test Item Value Reference Range Comments COLOR (BEAKER) (test rlkx=725) Yellow CLARITY (BEAKER) (test evuc=116) Clear SPECIFIC GRAVITY UA (BEAKER) (test yhvk=780) 1.018 1.001-1.035 PH UA (BEAKER) (test ocwj=533) 6.5 5.0-8.0 PROTEIN UA (BEAKER) (test zqvk=798) Negative Negative GLUCOSE UA (BEAKER) (test sjiy=118) Negative Negative KETONES UA (BEAKER) (test asbl=138) Negative Negative BILIRUBIN UA (BEAKER) (test dbet=645) Negative Negative BLOOD UA (BEAKER) (test jmqx=673) Negative Negative NITRITE UA (BEAKER) (test bwvj=233) Negative Negative LEUKOCYTE ESTERASE UA (BEAKER) (test vfxq=206) Negative Negative UROBILINOGEN UA (BEAKER) (test luvt=507) 2.0 mg/dL 0.2-1.0 RBC UA (BEAKER) (test gjse=924) < /HPF WBC UA (BEAKER) (test exne=747) < /HPF SQUAMOUS EPITHELIAL (BEAKER) (test gzuw=543) < /HPF SOURCE(BEAKER) (test gwwr=4379) URINALYSIS W/ REFLEX URINE [id number] 13:43:00 Test Item Value Reference Range Comments COLOR (BEAKER) (test azhp=221) Yellow CLARITY (BEAKER) (test rkby=084) Clear SPECIFIC GRAVITY UA (BEAKER) (test vqmi=732) 1.018 1.001-1.035 PH UA (BEAKER) (test ttjs=953) 6.5 5.0-8.0 PROTEIN UA (BEAKER) (test bxmi=318) Negative Negative GLUCOSE UA (BEAKER) (test ezag=932) Negative Negative KETONES UA (BEAKER) (test iksn=249) Negative Negative BILIRUBIN UA (BEAKER) (test snah=943) Negative Negative BLOOD UA (BEAKER) (test jwyv=578) Negative Negative NITRITE UA (BEAKER) (test soui=997) Negative Negative LEUKOCYTE ESTERASE UA (BEAKER) (test dwwo=841) Negative Negative UROBILINOGEN UA (BEAKER) (test nbgs=053) 2.0 mg/dL 0.2-1.0 RBC UA (BEAKER) (test ggxl=729) < /HPF WBC UA (BEAKER) (test qfmm=869) < /HPF SQUAMOUS EPITHELIAL (BEAKER) (test ehqh=883) < /HPF SOURCE(BEAKER) (test zvra=2982) CARCINOEMBRYONIC ANTIGEN (CEA)2017-04-10 13:12:00 Test Item Value Reference Range Comments CARCINOEMBRYONIC ANTIGEN (BEAKER) (test xaeu=932) 7.6 ng/mL 0.0-5.0 ALPHA FETOPROTEIN (AFP), TUMOR [id number] 13:12:00 Test Item Value Reference Range Comments ALPHA-FETOPROTEIN (BEAKER) (test edqo=0668) 4.2 ng/mL <10.0 Effective 08/08/2014: Reference Range ChangeNew: <10.0 Previous: 0.0- 8.0BASIC METABOLIC [id number] 12:55:00 Test Item Value Reference Range Comments SODIUM (BEAKER) (test 138 meq/L 136-145 saos=596) POTASSIUM (BEAKER) (test 4.4 meq/L 3.5-5.1 mfic=243) CHLORIDE (BEAKER) (test 109 meq/L 98-107 uvsg=600) CO2 (BEAKER) (test 22 meq/L 22-29 jwgz=958) BLOOD UREA NITROGEN 15 mg/dL 7-21 (BEAKER) (test qxya=985) CREATININE (BEAKER) (test 1.10 mg/dL 0.57-1.25 fgdy=096) GLUCOSE RANDOM (BEAKER) 90 mg/dL 70-105 (test jgga=225) CALCIUM (BEAKER) (test 9.1 mg/dL 8.4-10.2 tnlo=584) EGFR (BEAKER) (test 70 mL/min/1.73 sq m ESTIMATED GFR IS NOT cvur=3310) ACCURATE CREATININE CLEARANCE IN PREDICTING GLOMERULAR FILTRATION RATE. ESTIMATED GFR IS NOT APPLICABLE FOR DIALYSIS PATIENTS. Specimen slightly ictericHEPATIC FUNCTION [id number] 12:55:00 Test Item Value Reference Range Comments TOTAL PROTEIN (BEAKER) (test dchz=575) 7.6 gm/dL 6.0-8.3 ALBUMIN (BEAKER) (test xpzk=8369) 3.0 g/dL 3.5-5.0 BILIRUBIN TOTAL (BEAKER) (test bdwv=255) 3.0 mg/dL 0.2-1.2 BILIRUBIN DIRECT (BEAKER) (test zspz=468) 1.3 mg/dL 0.1-0.5 ALKALINE PHOSPHATASE (BEAKER) (test qtnb=418) 148 U/L 40-150 AST (SGOT) (BEAKER) (test hzks=707) 33 U/L 5-34 ALT (SGPT) (BEAKER) (test jrrb=183) 20 U/L 6-55 Specimen slightly ictericPROTHROMBIN [id number] 12:42:00 Test Item Value Reference Range Comments PROTIME (BEAKER) (test dkmz=536) 18.4 seconds 11.7-14.7 INR (BEAKER) (test lnup=804) 1.5 <=5.9 RECOMMENDED COUMADIN/WARFARIN INR THERAPY RANGESSTANDARD DOSE: 2.0 - 3.0 Includes: PROPHYLAXIS forvenous thrombosis, systemic embolization; TREATMENT for venous thrombosis and/or pulmonary embolus.HIGH RISK: Target INR is 2.5-3.5 for patients with mechanical heart valves.CBC W/PLT COUNT & AUTO [id number] 12:39:00 Test Item Value Reference Range Comments WHITE BLOOD CELL COUNT (BEAKER) (test codq=658) 3.8 K/ L 4.0-10.0 RED BLOOD CELL COUNT (BEAKER) (test fnou=928) 3.24 M/ L 4.20-5.80 HEMOGLOBIN (BEAKER) (test qujk=280) 10.1 GM/DL 13.0-16.8 HEMATOCRIT (BEAKER) (test ixvb=221) 31.2 % 40.0-50.0 MEAN CORPUSCULAR VOLUME (BEAKER) (test wnuq=522) 96.3 fL 82.0-98.0 MEAN CORPUSCULAR HEMOGLOBIN (BEAKER) (test 31.2 pg 27.0-33.0 evsp=960) MEAN CORPUSCULAR HEMOGLOBIN CONC (BEAKER) (test 32.4 GM/DL 32.0-36.0 gxro=296) RED CELL DISTRIBUTION WIDTH (BEAKER) (test 14.0 % 10.3-14.2 ibzz=183) PLATELET COUNT (BEAKER) (test rugq=550) 72 K/CU MM 150-430 MEAN PLATELET VOLUME (BEAKER) (test uhug=912) 8.1 fL 6.5-10.5 NUCLEATED RED BLOOD CELLS (BEAKER) (test 0 /100 WBC 0-0 qpce=783) NEUTROPHILS RELATIVE PERCENT (BEAKER) (test 48 % gamv=683) LYMPHOCYTES RELATIVE PERCENT (BEAKER) (test 34 % ozue=390) MONOCYTES RELATIVE PERCENT (BEAKER) (test 11 % mctm=008) EOSINOPHILS RELATIVE PERCENT (BEAKER) (test 7 % vekw=495) BASOPHILS RELATIVE PERCENT (BEAKER) (test 1 % phmm=849) NEUTROPHILS ABSOLUTE COUNT (BEAKER) (test 1.85 K/ L 1.80-8.00 kxoc=064) LYMPHOCYTES ABSOLUTE COUNT (BEAKER) (test 1.28 K/ L 1.48-4.50 hfpm=467) MONOCYTES ABSOLUTE COUNT (BEAKER) (test qljx=403) 0.40 K/ L 0.00-1.30 EOSINOPHILS ABSOLUTE COUNT (BEAKER) (test 0.28 K/ L 0.00-0.50 lodx=466) BASOPHILS ABSOLUTE COUNT (BEAKER) (test nzba=834) 0.02 K/ L 0.00-0.20 0.00MISCELLANEOUS LAB [id number] 07:11:00 Test Item Value Reference Range Comments SCAN RESULT (test eeqc=[id number]) T SPOT [id number] 11:28:00 Test Item Value Reference Range Comments T-SPOT TB (BEAKER) (test ygii=4762) Negative NEG CONTROL SPOT COUNT (BEAKER) (test gogg=9394) 1 PANEL A SPOT (BEAKER) (test jthc=7764) 0 PANEL B SPOT (BEAKER) (test mkpo=9029) [address] (BEAKER) (test jxzv=8490) > SCAN RESULT (test nzwq=[id number]) CYTOMEGALOVIRUS ANTIBODY, [id number] 11:41:00 Test Item Value Reference Range Comments CYTOMEGALOVIRUS IGG ANTIBODY (BEAKER) (test Positive kflk=995) CYTOMEGALOVIRUS ANTIBODY, [id number] 11:41:00 Test Item Value Reference Range Comments CYTOMEGALOVIRUS IGM ANTIBODY (BEAKER) (test Negative qlip=704) EBV-VCA ANTIBODY, [id number] 11:41:00 Test Item Value Reference Range Comments RANJANA-BRANCH VCA IGG (BEAKER) (test cdbw=531) Positive EBV-VCA ANTIBODY, [id number] 11:41:00 Test Item Value Reference Range Comments RANJANA-BRANCH VCA IGM (BEAKER) (test zrrt=212) Negative [id number] 11:18:00 Test Item Value Reference Range Comments RPR SCREEN (BEAKER) (test funo=444) Nonreactive Nonreactive VITAMIN D, [id number] 09:27:00 Test Item Value Reference Range Comments VITAMIN D 25-OH (BEAKER) (test ledo=5966) 19.1 ng/mL 13.0-47.8 CARCINOEMBRYONIC ANTIGEN (CEA)2017-03-04 09:11:00 Test Item Value Reference Range Comments CARCINOEMBRYONIC ANTIGEN (BEAKER) (test zqrm=495) 8.1 ng/mL 0.0-5.0 [id number] 09:11:00 Test Item Value Reference Range Comments FERRITIN (BEAKER) (test egrd=182) 234 ng/mL 5-275 Effective 08/08/2014: Reference Range ChangeNew: Male 5-275 Previous: Male 22-322 Female 5-275 Female 10-291URINALYSIS W/ [id number] 09:09:00 Test Item Value Reference Range Comments COLOR (BEAKER) (test khky=080) Yellow CLARITY (BEAKER) (test hcoc=592) Clear SPECIFIC GRAVITY UA (BEAKER) (test llwy=559) 1.015 1.001-1.035 PH UA (BEAKER) (test cawd=184) 7.0 5.0-8.0 PROTEIN UA (BEAKER) (test vuqi=133) Negative Negative GLUCOSE UA (BEAKER) (test tsdy=387) Negative Negative KETONES UA (BEAKER) (test xubq=038) Negative Negative BILIRUBIN UA (BEAKER) (test ejeh=211) Negative Negative BLOOD UA (BEAKER) (test fvwx=461) Negative Negative NITRITE UA (BEAKER) (test zswa=185) Negative Negative LEUKOCYTE ESTERASE UA (BEAKER) (test rdhr=191) Negative Negative UROBILINOGEN UA (BEAKER) (test jyrg=813) 0.2 mg/dL 0.2-1.0 RBC UA (BEAKER) (test hghl=162) 0 /HPF WBC UA (BEAKER) (test pvhv=252) 2 /HPF SQUAMOUS EPITHELIAL (BEAKER) (test mwig=641) 1 /HPF SOURCE(BEAKER) (test sowa=2497) [id number] 09:04:00 Test Item Value Reference Range Comments T4 TOTAL (BEAKER) (test drdq=109) 4.9 ug/dL 4.9-11.7 [id number] 09:04:00 Test Item Value Reference Range Comments THYROID STIMULATING HORMONE (BEAKER) (test 1.74 uIU/mL 0.35-4.94 rqfo=524) [id number] 09:04:00 Test Item Value Reference Range Comments T3 TOTAL (BEAKER) (test eejz=839) 71 ng/dL 48-159 Effective 08/08/2014: Reference Range ChangeNew: 48-159 Previous: 60- [id number] 09:00:00 Test Item Value Reference Range Comments PROSTATE SPECIFIC ANTIGEN (BEAKER) (test nduj=405) 0.3 ng/mL 0.0-4.0 HEPATITIS B CORE ANTIBODY, [id number] 09:00:00 Test Item Value Reference Range Comments HEPATITIS B CORE TOTAL ANTIBODY (BEAKER) (test Nonreactive Nonreactive mkbl=147) [id number] 08:46:00 Test Item Value Reference Range Comments TRANSFERRIN (BEAKER) (test qvfd=771) 195 mg/dL 174-382 Specimen moderately [id number] 08:42:00 Test Item Value Reference Range Comments ETHANOL (BEAKER) (test szqu=721) < mg/dL <=10 BLOOD GAS, [id number] 08:41:00 Test Item Value Reference Range Comments PH ARTERIAL (BEAKER) (test xtfk=396) 7.45 7.35-7.45 PCO2 ARTERIAL (BEAKER) (test gose=873) 34 mmHg 35-45 PO2 ARTERIAL (BEAKER) (test kfko=875) 106 mmHg 80-90 O2 SATURATION ARTERIAL (BEAKER) (test styx=956) 98.1 % 96.0-97.0 HCO3 ARTERIAL (BEAKER) (test tgev=520) 23 mmol/L 21-29 BASE EXCESS ARTERIAL (BEAKER) (test lnwh=145) -0.9 mmol/L -2.0-3.0 PATIENT TEMPERATURE (BEAKER) (test tikj=8856) 37.0 C FIO2 (BEAKER) (test grbe=7612) 21.0 % [id number] 08:39:00 Test Item Value Reference Range Comments PHOSPHORUS (BEAKER) (test wkeh=988) 3.0 mg/dL 2.3-4.7 URIC [id number] 08:39:00 Test Item Value Reference Range Comments URIC ACID (BEAKER) (test nzfm=034) 6.4 mg/dL 2.6-7.2 Specimen moderately ictericCOMPREHENSIVE METABOLIC [id number] 08:39:00 Test Item Value Reference Range Comments TOTAL PROTEIN (BEAKER) 7.7 gm/dL 6.0-8.3 (test sdjd=890) ALBUMIN (BEAKER) (test 3.1 g/dL 3.5-5.0 jchm=0265) ALKALINE PHOSPHATASE 150 U/L 40-150 (BEAKER) (test bhrk=104) BILIRUBIN TOTAL (BEAKER) 3.6 mg/dL 0.2-1.2 (test pnwq=208) SODIUM (BEAKER) (test 140 meq/L 136-145 lbnl=708) POTASSIUM (BEAKER) (test 4.1 meq/L 3.5-5.1 rstx=097) CHLORIDE (BEAKER) (test 110 meq/L 98-107 semp=743) CO2 (BEAKER) (test 22 meq/L 22-29 pfrm=684) BLOOD UREA NITROGEN 13 mg/dL 7-21 (BEAKER) (test rxmo=952) CREATININE (BEAKER) (test 1.11 mg/dL 0.57-1.25 hiii=706) GLUCOSE RANDOM (BEAKER) 85 mg/dL 70-105 (test gets=795) CALCIUM (BEAKER) (test 9.2 mg/dL 8.4-10.2 ddsv=395) AST (SGOT) (BEAKER) (test 47 U/L 5-34 zdds=675) ALT (SGPT) (BEAKER) (test 25 U/L 6-55 bwmf=907) EGFR (BEAKER) (test 69 mL/min/1.73 sq m ESTIMATED GFR IS NOT kwgo=4092) ACCURATE CREATININE CLEARANCE IN PREDICTING GLOMERULAR FILTRATION RATE. ESTIMATED GFR IS NOT APPLICABLE FOR DIALYSIS PATIENTS. Specimen moderately ictericBILIRUBIN, [id number] 08:39:00 Test Item Value Reference Range Comments BILIRUBIN DIRECT (BEAKER) (test klsz=633) 1.6 mg/dL 0.1-0.5 GAMMA GLUTAMYL TRANSFERASE (GGT)2017-03-04 08:39:00 Test Item Value Reference Range Comments GAMMA GLUTAMYL TRANSFERASE (BEAKER) (test aymb=450) 57 U/L 9-64 Specimen moderately ictericIRON, TIBC, % SAT. (WITHOUT FERRITIN)2017-03-04 08:39 :00 Test Item Value Reference Range Comments IRON (BEAKER) (test zdrq=318) 78 ug/dL 40-160 TOTAL IRON BINDING CAPACITY (BEAKER) (test 260 ug/dL 250-450 nmqi=153) IRON % SATURATION (2) (BEAKER) (test ifdj=3912) 30 % 20-55 CALCIUM, [id number] 08:38:00 Test Item Value Reference Range Comments CALCIUM IONIZED (BEAKER) (test jfpr=416) 1.18 mmol/L 1.12-1.27 PH, BLOOD (BEAKER) (test oeka=5161) 7.36 CBC W/PLT COUNT & AUTO [id number] 08:27:00 Test Item Value Reference Range Comments WHITE BLOOD CELL COUNT (BEAKER) (test mxrb=806) 4.5 K/ L 4.0-10.0 RED BLOOD CELL COUNT (BEAKER) (test gsqa=747) 2.13 M/ L 4.20-5.80 HEMOGLOBIN (BEAKER) (test esfu=028) 7.0 GM/DL 13.0-16.8 HEMATOCRIT (BEAKER) (test gfrx=086) 21.8 % 40.0-50.0 MEAN CORPUSCULAR VOLUME (BEAKER) (test sbmc=241) 102.0 fL 82.0-98.0 MEAN CORPUSCULAR HEMOGLOBIN (BEAKER) (test 32.9 pg 27.0-33.0 jomu=439) MEAN CORPUSCULAR HEMOGLOBIN CONC (BEAKER) (test 32.2 GM/DL 32.0-36.0 mkhs=000) RED CELL DISTRIBUTION WIDTH (BEAKER) (test 15.6 % 10.3-14.2 irlr=590) PLATELET COUNT (BEAKER) (test xuiu=019) 114 K/CU MM 150-430 MEAN PLATELET VOLUME (BEAKER) (test lfki=107) 7.4 fL 6.5-10.5 NUCLEATED RED BLOOD CELLS (BEAKER) (test 0 /100 WBC 0-0 bkgs=008) NEUTROPHILS RELATIVE PERCENT (BEAKER) (test 54 % kavg=731) LYMPHOCYTES RELATIVE PERCENT (BEAKER) (test 32 % xocj=634) MONOCYTES RELATIVE PERCENT (BEAKER) (test 7 % iwjo=077) EOSINOPHILS RELATIVE PERCENT (BEAKER) (test 7 % lczn=804) BASOPHILS RELATIVE PERCENT (BEAKER) (test 1 % lnlb=088) NEUTROPHILS ABSOLUTE COUNT (BEAKER) (test 2.41 K/ L 1.80-8.00 nsdj=418) LYMPHOCYTES ABSOLUTE COUNT (BEAKER) (test 1.42 K/ L 1.48-4.50 qebb=985) MONOCYTES ABSOLUTE COUNT (BEAKER) (test 0.30 K/ L 0.00-1.30 lerc=869) EOSINOPHILS ABSOLUTE COUNT (BEAKER) (test 0.30 K/ L 0.00-0.50 hdzd=313) BASOPHILS ABSOLUTE COUNT (BEAKER) (test 0.03 K/ L 0.00-0.20 wxra=711) [id number] 08:26:00 Test Item Value Reference Range Comments FIBRINOGEN LEVEL (BEAKER) (test nptr=886) 238 mg/dl 225-434 [id number] 08:26:00 Test Item Value Reference Range Comments PARTIAL THROMBOPLASTIN TIME (BEAKER) (test 42.2 seconds 22.5-36.0 ghzb=212) PROTHROMBIN [id number] 08:25:00 Test Item Value Reference Range Comments PROTIME (BEAKER) (test qoso=045) 17.4 seconds 11.7-14.7 INR (BEAKER) (test trdb=642) 1.4 <=5.9 RECOMMENDED COUMADIN/WARFARIN INR THERAPY RANGESSTANDARD DOSE: 2.0 - 3.0 Includes: PROPHYLAXIS forvenous thrombosis, systemic embolization; TREATMENT for venous thrombosis and/or pulmonary embolus.HIGH RISK: Target INR is 2.5-3.5 for patients with mechanical heart valves.TISSUE [id number] 14:35: 00Surgical Pathology Report Case: [id number] Authorizing Provider: Radhika Grimm MD Collected : 02/09/2017 1021 Ordering Location: [facility] Endoscopy Received: 02/09/2017 1636 Services Pathologist: Damian Edwards MD Specimens: A) - Duodenum, BX B) -Stomach, Antrum, BX C) - Biopsy, Mid-esophagus, BX- R/O EOE A. DUODENUM BIOPSY- DUODENAL MUCOSA, WITHIN NORMAL LIMITS- NO EVIDENCE OF CELIAC DISEASE B. STOMACH ANTRUM BIOPSY- REACTIVE/CHEMICAL GASTROPATHY (SEE COMMENT)- NO INTESTINAL METAPLASIA, NO DYSPLASIA AND NO MALIGNANCY IDENTIFIED- NO HELICOBACTER PYLORI ORGANISMS IDENTIFIED ON WARTHIN-STARRY STAIN C. MID ESOPHAGUS BIOPSY- SQUAMOUS EPITHELIUM, MILD REACTIVE CHANGES - NO EVIDENCE OF EOSINOPHILIC ESOPHAGITIS Chemical gastropathy may be seen in association with NSAID and other agent usage, bile reflux, healing phase of gastritis and gastric ulcer and due toother etiologies. Clinical correlation is suggested.76565 X 3, 32715Hhkbqiemw , rule out EOEA. Duodenum biopsy; B. Stomach antrum biopsy; C. Mid esophagus biopsyThe specimen is received in three containers of formalin all labeled with the patient's information.Specimen A labeled "duodenunm biopsy" consists of two round fragments of pan-white soft tissue measuring 0.9 and 0.2 cm, submitted A1. Specimen B labeled "stomach antrum biopsy" consists of two fragments of pan tissue measuring 0.1 and 0.3 cm,submitted B1. Specimen C labeled "mid esophagus biopsy" consists of two fragments of pan-white soft tissue measuring 0.1 and 0.2 cm, submitted C3. CG/Carlos. Sections reveal fragments of small bowel mucosa with normal villous architecture. Features of inflammatory bowel disease and Whipple disease are not seen. No significant inflammation is identified. No increased intraepithelial lymphocytes are seen. Villous atrophy, parasites, viral inclusions, granulomatous inflammation, adenomatous change, dysplasia and malignancy are not seen.B. Sections reveal fragments of benign antral mucosa with fibromuscular hyperplasia within the lamina propria along with minimal chronic inflammation. No active gastritis is seen. No Helicobacter pylori organisms are identified on Warthin - Starry stain. Intestinal metaplasia, dysplasia and malignancy are not seen.C. Sections reveal pieces of benign squamous epithelium with a few intraepithelial chronic inflammatory cells and mild reactive changes. No significantintraepithelial eosinophils are seen. There is no evidence of eosinophilic esophagitis. No gastricepithelium is seen within the biopsy. Intestinal metaplasia, dysplasia, and malignancy are not identified.The following special studies were performed on this case and the interpretation is incorporated in the diagnostic report above: IMMUNOHISTOCHEMISTRY/SPECIAL STAIN SUMMARY:The results of immunohistochemical studies and/or special stains are as follows:B. Warthin-Starry stain - No Helicobacter pylori organisms identifiedPT/[id number] 08:00:00 Test Item Value Reference Range Comments PROTIME (BEAKER) (test jokz=878) 17.7 seconds 11.7-14.7 INR (BEAKER) (test rngy=937) 1.5 <=5.9 PARTIAL THROMBOPLASTIN TIME (BEAKER) (test 44.1 seconds 22.5-36.0 igql=641) RECOMMENDED COUMADIN/WARFARIN INR THERAPY RANGESSTANDARD DOSE: 2.0 - 3.0 Includes: PROPHYLAXIS forvenous thrombosis, systemic embolization; TREATMENT for venous thrombosis and/or pulmonary embolus.HIGH RISK: Target INR is 2.5-3.5 for patients with mechanical heart valves.PLATELET [id number] 07:52:00 Test Item Value Reference Range Comments PLATELET COUNT (BEAKER) (test qahb=222) 60 K/CU MM 150-430 BLOOD [id number] 15:40:00 Test Item Value Reference Range Comments CULTURE (BEAKER) (test hjxq=5153) No growth in 5 days [id number] 12:32:00 Test Item Value Reference Range Comments PROTIME (BEAKER) (test iyhk=585) 18.7 seconds 11.7-14.7 INR (BEAKER) (test zmmz=230) 1.6 <=5.9 PARTIAL THROMBOPLASTIN TIME (BEAKER) (test 45.3 seconds 22.5-36.0 nepl=627) RECOMMENDED COUMADIN/WARFARIN INR THERAPY RANGESSTANDARD DOSE: 2.0 - 3.0 Includes: PROPHYLAXIS forvenous thrombosis, systemic embolization; TREATMENT for venous thrombosis and/or pulmonary embolus.HIGH RISK: Target INR is 2.5-3.5 for patients with mechanical heart valves.URINALYSIS W/ [id number] 12 :29:00 Test Item Value Reference Range Comments COLOR (BEAKER) (test czen=067) Yellow CLARITY (BEAKER) (test typo=470) Clear SPECIFIC GRAVITY UA (BEAKER) (test 1.017 1.001-1.035 ftwo=096) PH UA (BEAKER) (test ulwg=692) 6.5 5.0-8.0 PROTEIN UA (BEAKER) (test zejx=873) Negative Negative GLUCOSE UA (BEAKER) (test lsxm=596) Negative Negative KETONES UA (BEAKER) (test jtzx=891) Negative Negative BILIRUBIN UA (BEAKER) (test xbhp=125) Negative Negative BLOOD UA (BEAKER) (test sgeh=756) Negative Negative NITRITE UA (BEAKER) (test tdpy=724) Negative Negative LEUKOCYTE ESTERASE UA (BEAKER) (test Negative Negative dose=754) UROBILINOGEN UA (BEAKER) (test sstn=131) 0.2 mg/dL 0.2-1.0 RBC UA (BEAKER) (test ndiu=835) < /HPF WBC UA (BEAKER) (test evrh=233) 1 /HPF SQUAMOUS EPITHELIAL (BEAKER) (test < /HPF pouz=785) AMORPHOUS CRYSTALS (BEAKER) (test Occasional nypu=5901) SOURCE(BEAKER) (test ayxr=2744) Urine, Clean Catch BASIC METABOLIC [id number] 12:25:00 Test Item Value Reference Range Comments SODIUM (BEAKER) (test 129 meq/L 136-145 yvuf=523) POTASSIUM (BEAKER) (test 4.3 meq/L 3.5-5.1 tcbj=962) CHLORIDE (BEAKER) (test 103 meq/L 98-107 gklb=166) CO2 (BEAKER) (test 21 meq/L 22-29 conq=255) BLOOD UREA NITROGEN 16 mg/dL 7-21 (BEAKER) (test zpux=704) CREATININE (BEAKER) (test 1.05 mg/dL 0.57-1.25 pnhd=640) GLUCOSE RANDOM (BEAKER) 94 mg/dL 70-105 (test oqvg=428) CALCIUM (BEAKER) (test 8.8 mg/dL 8.4-10.2 jika=673) EGFR (BEAKER) (test 74 mL/min/1.73 sq m ESTIMATED GFR IS NOT zmdk=1614) ACCURATE CREATININE CLEARANCE IN PREDICTING GLOMERULAR FILTRATION RATE. ESTIMATED GFR IS NOT APPLICABLE FOR DIALYSIS PATIENTS. Specimen slightly ictericHEPATIC FUNCTION [id number] 12:25:00 Test Item Value Reference Range Comments TOTAL PROTEIN (BEAKER) (test epgw=406) 7.4 gm/dL 6.0-8.3 ALBUMIN (BEAKER) (test cosy=8823) 2.9 g/dL 3.5-5.0 BILIRUBIN TOTAL (BEAKER) (test veae=116) 3.6 mg/dL 0.2-1.2 BILIRUBIN DIRECT (BEAKER) (test vxov=119) 1.7 mg/dL 0.1-0.5 ALKALINE PHOSPHATASE (BEAKER) (test xquq=885) 132 U/L 40-150 AST (SGOT) (BEAKER) (test ukxb=931) 63 U/L 5-34 ALT (SGPT) (BEAKER) (test evvl=548) 30 U/L 6-55 Specimen slightly [id number] 12:16:00 Test Item Value Reference Range Comments AMMONIA (BEAKER) (test quif=991) 71 mol/L 18-72 CBC W/PLT COUNT & AUTO [id number] 12:10:00 Test Item Value Reference Range Comments WHITE BLOOD CELL COUNT (BEAKER) (test ndfa=345) 3.2 K/ L 4.0-10.0 RED BLOOD CELL COUNT (BEAKER) (test iieo=093) 2.93 M/ L 4.20-5.80 HEMOGLOBIN (BEAKER) (test zbzt=471) 10.0 GM/DL 13.0-16.8 HEMATOCRIT (BEAKER) (test lpzg=262) 28.4 % 40.0-50.0 MEAN CORPUSCULAR VOLUME (BEAKER) (test jfik=682) 96.9 fL 82.0-98.0 MEAN CORPUSCULAR HEMOGLOBIN (BEAKER) (test 34.2 pg 27.0-33.0 gyal=192) MEAN CORPUSCULAR HEMOGLOBIN CONC (BEAKER) (test 35.3 GM/DL 32.0-36.0 tyyv=953) RED CELL DISTRIBUTION WIDTH (BEAKER) (test 13.9 % 10.3-14.2 npdb=403) PLATELET COUNT (BEAKER) (test hzqh=964) 60 K/CU MM 150-430 MEAN PLATELET VOLUME (BEAKER) (test bpgc=724) 7.6 fL 6.5-10.5 NUCLEATED RED BLOOD CELLS (BEAKER) (test 0 /100 WBC 0-0 cfbw=110) NEUTROPHILS RELATIVE PERCENT (BEAKER) (test 46 % vaud=013) LYMPHOCYTES RELATIVE PERCENT (BEAKER) (test 36 % phsy=602) MONOCYTES RELATIVE PERCENT (BEAKER) (test 11 % iopq=658) EOSINOPHILS RELATIVE PERCENT (BEAKER) (test 5 % szrq=958) BASOPHILS RELATIVE PERCENT (BEAKER) (test 2 % ejlc=317) NEUTROPHILS ABSOLUTE COUNT (BEAKER) (test 1.49 K/ L 1.80-8.00 rvuv=050) LYMPHOCYTES ABSOLUTE COUNT (BEAKER) (test 1.16 K/ L 1.48-4.50 fddk=857) MONOCYTES ABSOLUTE COUNT (BEAKER) (test jjjm=219) 0.37 K/ L 0.00-1.30 EOSINOPHILS ABSOLUTE COUNT (BEAKER) (test 0.15 K/ L 0.00-0.50 jjwm=722) BASOPHILS ABSOLUTE COUNT (BEAKER) (test iuus=138) 0.06 K/ L 0.00-0.20 0.00BASIC METABOLIC [id number] 09:58:00 Test Item Value Reference Range Comments SODIUM (BEAKER) (test 130 meq/L 136-145 uukn=885) POTASSIUM (BEAKER) (test 4.5 meq/L 3.5-5.1 suir=088) CHLORIDE (BEAKER) (test 103 meq/L 98-107 achs=516) CO2 (BEAKER) (test 21 meq/L 22-29 ecci=875) BLOOD UREA NITROGEN 17 mg/dL 7-21 (BEAKER) (test uyuz=902) CREATININE (BEAKER) (test 1.07 mg/dL 0.57-1.25 tlmh=094) GLUCOSE RANDOM (BEAKER) 95 mg/dL 70-105 (test eaed=532) CALCIUM (BEAKER) (test 9.1 mg/dL 8.4-10.2 aayi=413) EGFR (BEAKER) (test 72 mL/min/1.73 sq m ESTIMATED GFR IS NOT puts=5750) ACCURATE CREATININE CLEARANCE IN PREDICTING GLOMERULAR FILTRATION RATE. ESTIMATED GFR IS NOT APPLICABLE FOR DIALYSIS PATIENTS. Specimen [facility] ictericHEPATIC FUNCTION [id number] 09:58:00 Test Item Value Reference Range Comments TOTAL PROTEIN (BEAKER) (test qrrs=139) 7.5 gm/dL 6.0-8.3 ALBUMIN (BEAKER) (test rnye=4528) 3.0 g/dL 3.5-5.0 BILIRUBIN TOTAL (BEAKER) (test awwc=520) 3.9 mg/dL 0.2-1.2 BILIRUBIN DIRECT (BEAKER) (test qclr=750) 1.8 mg/dL 0.1-0.5 ALKALINE PHOSPHATASE (BEAKER) (test rpez=740) 138 U/L 40-150 AST (SGOT) (BEAKER) (test chno=696) 68 U/L 5-34 ALT (SGPT) (BEAKER) (test ewdw=067) 33 U/L 6-55 Specimen moderately ictericPROTHROMBIN [id number] 09:45:00 Test Item Value Reference Range Comments PROTIME (BEAKER) (test mtvs=056) 17.9 seconds 11.7-14.7 INR (BEAKER) (test huah=911) 1.5 <=5.9 RECOMMENDED COUMADIN/WARFARIN INR THERAPY RANGESSTANDARD DOSE: 2.0 - 3.0 Includes: PROPHYLAXIS forvenous thrombosis, systemic embolization; TREATMENT for venous thrombosis and/or pulmonary embolus.HIGH RISK: Target INR is 2.5-3.5 for patients with mechanical heart valves.CBC W/PLT COUNT & AUTO [id number] 09:45:00 Test Item Value Reference Range Comments WHITE BLOOD CELL COUNT (BEAKER) (test inrk=095) 3.5 K/ L 4.0-10.0 RED BLOOD CELL COUNT (BEAKER) (test yfqg=435) 3.07 M/ L 4.20-5.80 HEMOGLOBIN (BEAKER) (test xzgu=575) 10.7 GM/DL 13.0-16.8 HEMATOCRIT (BEAKER) (test udll=403) 29.9 % 40.0-50.0 MEAN CORPUSCULAR VOLUME (BEAKER) (test ulfp=731) 97.5 fL 82.0-98.0 MEAN CORPUSCULAR HEMOGLOBIN (BEAKER) (test 34.8 pg 27.0-33.0 nuqa=597) MEAN CORPUSCULAR HEMOGLOBIN CONC (BEAKER) (test 35.7 GM/DL 32.0-36.0 zxit=161) RED CELL DISTRIBUTION WIDTH (BEAKER) (test 13.9 % 10.3-14.2 fgbg=634) PLATELET COUNT (BEAKER) (test qret=719) 65 K/CU MM 150-430 MEAN PLATELET VOLUME (BEAKER) (test wnde=884) 7.8 fL 6.5-10.5 NUCLEATED RED BLOOD CELLS (BEAKER) (test 0 /100 WBC 0-0 fcsr=253) NEUTROPHILS RELATIVE PERCENT (BEAKER) (test 46 % kjth=396) LYMPHOCYTES RELATIVE PERCENT (BEAKER) (test 39 % skvu=806) MONOCYTES RELATIVE PERCENT (BEAKER) (test 9 % ugvt=970) EOSINOPHILS RELATIVE PERCENT (BEAKER) (test 5 % ncpo=672) BASOPHILS RELATIVE PERCENT (BEAKER) (test 0 % rypy=803) NEUTROPHILS ABSOLUTE COUNT (BEAKER) (test 1.61 K/ L 1.80-8.00 bdkj=211) LYMPHOCYTES ABSOLUTE COUNT (BEAKER) (test 1.34 K/ L 1.48-4.50 siwk=685) MONOCYTES ABSOLUTE COUNT (BEAKER) (test kjqf=445) 0.33 K/ L 0.00-1.30 EOSINOPHILS ABSOLUTE COUNT (BEAKER) (test 0.19 K/ L 0.00-0.50 ikgj=482) BASOPHILS ABSOLUTE COUNT (BEAKER) (test uont=215) 0.02 K/ L 0.00-0.20 0.00ALPHA FETOPROTEIN (AFP), TUMOR [id number] 12:39:00 Test Item Value Reference Range Comments ALPHA-FETOPROTEIN (BEAKER) (test pddt=0697) 7.9 ng/mL <10.0 Effective 08/08/2014: Reference Range ChangeNew: <10.0 Previous: 0.0- 8.0BASIC METABOLIC [id number] 12:20:00 Test Item Value Reference Range Comments SODIUM (BEAKER) (test 129 meq/L 136-145 nkeq=498) POTASSIUM (BEAKER) (test 4.1 meq/L 3.5-5.1 ixqg=311) CHLORIDE (BEAKER) (test 101 meq/L 98-107 xnxn=823) CO2 (BEAKER) (test 21 meq/L 22-29 mucg=860) BLOOD UREA NITROGEN 15 mg/dL 7-21 (BEAKER) (test bedv=724) CREATININE (BEAKER) (test 1.17 mg/dL 0.57-1.25 bqdx=982) GLUCOSE RANDOM (BEAKER) 92 mg/dL 70-105 (test ifay=224) CALCIUM (BEAKER) (test 8.9 mg/dL 8.4-10.2 bgka=380) EGFR (BEAKER) (test 65 mL/min/1.73 sq m ESTIMATED GFR IS NOT qbxi=8322) ACCURATE CREATININE CLEARANCE IN PREDICTING GLOMERULAR FILTRATION RATE. ESTIMATED GFR IS NOT APPLICABLE FOR DIALYSIS PATIENTS. Specimen moderately ictericHEPATIC FUNCTION [id number] 12:20:00 Test Item Value Reference Range Comments TOTAL PROTEIN (BEAKER) (test flds=844) 7.7 gm/dL 6.0-8.3 ALBUMIN (BEAKER) (test nhad=6613) 3.1 g/dL 3.5-5.0 BILIRUBIN TOTAL (BEAKER) (test nbop=233) 4.3 mg/dL 0.2-1.2 BILIRUBIN DIRECT (BEAKER) (test cbeu=292) 2.0 mg/dL 0.1-0.5 ALKALINE PHOSPHATASE (BEAKER) (test obnv=009) 137 U/L 40-150 AST (SGOT) (BEAKER) (test mxhf=504) 53 U/L 5-34 ALT (SGPT) (BEAKER) (test knbk=194) 26 U/L 6-55 Specimen moderately ictericCBC W/PLT COUNT & AUTO [id number] 12: 13:00 Test Item Value Reference Range Comments WHITE BLOOD CELL COUNT (BEAKER) (test uzhc=296) 3.7 K/ L 4.0-10.0 RED BLOOD CELL COUNT (BEAKER) (test wxnh=134) 3.17 M/ L 4.20-5.80 HEMOGLOBIN (BEAKER) (test yxgq=625) 11.0 GM/DL 13.0-16.8 HEMATOCRIT (BEAKER) (test niqz=380) 31.9 % 40.0-50.0 MEAN CORPUSCULAR VOLUME (BEAKER) (test hzxi=211) 101.0 fL 82.0-98.0 MEAN CORPUSCULAR HEMOGLOBIN (BEAKER) (test 34.6 pg 27.0-33.0 imum=249) MEAN CORPUSCULAR HEMOGLOBIN CONC (BEAKER) (test 34.4 GM/DL 32.0-36.0 fzkl=730) RED CELL DISTRIBUTION WIDTH (BEAKER) (test 14.7 % 10.3-14.2 xyje=212) PLATELET COUNT (BEAKER) (test vstf=896) 68 K/CU MM 150-430 MEAN PLATELET VOLUME (BEAKER) (test nmxg=374) 7.2 fL 6.5-10.5 NUCLEATED RED BLOOD CELLS (BEAKER) (test 0 /100 WBC 0-0 enye=318) NEUTROPHILS RELATIVE PERCENT (BEAKER) (test 49 % fmat=224) LYMPHOCYTES RELATIVE PERCENT (BEAKER) (test 34 % uqrt=433) MONOCYTES RELATIVE PERCENT (BEAKER) (test 13 % wrtk=533) EOSINOPHILS RELATIVE PERCENT (BEAKER) (test 4 % sqee=170) BASOPHILS RELATIVE PERCENT (BEAKER) (test 0 % kylo=563) NEUTROPHILS ABSOLUTE COUNT (BEAKER) (test 1.80 K/ L 1.80-8.00 vohc=881) LYMPHOCYTES ABSOLUTE COUNT (BEAKER) (test 1.25 K/ L 1.48-4.50 ymqv=526) MONOCYTES ABSOLUTE COUNT (BEAKER) (test kqnh=906) 0.50 K/ L 0.00-1.30 EOSINOPHILS ABSOLUTE COUNT (BEAKER) (test 0.15 K/ L 0.00-0.50 wbni=358) BASOPHILS ABSOLUTE COUNT (BEAKER) (test wxxm=138) 0.01 K/ L 0.00-0.20 0.00PROTHROMBIN [id number] 12:09:00 Test Item Value Reference Range Comments PROTIME (BEAKER) (test uwya=132) 17.7 seconds 11.7-14.7 INR (BEAKER) (test spim=917) 1.5 <=5.9 RECOMMENDED COUMADIN/WARFARIN INR THERAPY RANGESSTANDARD DOSE: 2.0 - 3.0 Includes: PROPHYLAXIS forvenous thrombosis, systemic embolization; TREATMENT for venous thrombosis and/or pulmonary embolus.HIGH RISK: Target INR is 2.5-3.5 for patients with mechanical heart valves.TOXICOLOGY SCREEN, [id number] 11: 48:00 Test Item Value Reference Range Comments SCAN RESULT (test odax=[id number]) BLOOD [id number] 15:28:00 Test Item Value Reference Range Comments CULTURE (BEAKER) (test bbte=6363) No growth in 5 days BLOOD [id number] 15:28:00 Test Item Value Reference Range Comments CULTURE (BEAKER) (test ivhc=1789) No growth in 5 days POCT-GLUCOSE [id number] 11:31:00 Test Item Value Reference Range Comments POC-GLUCOSE METER (BEAKER) 119 mg/dL 70-110 TESTED AT [address] (test timy=6900) [facility] [address] CBC W/PLT COUNT & AUTO [id number] 09:09:00 Test Item Value Reference Range Comments WHITE BLOOD CELL COUNT (BEAKER) (test jbuf=006) 4.3 K/ L 4.0-10.0 RED BLOOD CELL COUNT (BEAKER) (test yxpl=447) 2.84 M/ L 4.20-5.80 HEMOGLOBIN (BEAKER) (test rhrx=332) 9.1 GM/DL 13.0-16.8 HEMATOCRIT (BEAKER) (test qmsv=111) 28.4 % 40.0-50.0 MEAN CORPUSCULAR VOLUME (BEAKER) (test tsxs=094) 99.9 fL 82.0-98.0 MEAN CORPUSCULAR HEMOGLOBIN (BEAKER) (test 32.0 pg 27.0-33.0 qhvg=988) MEAN CORPUSCULAR HEMOGLOBIN CONC (BEAKER) (test 32.1 GM/DL 32.0-36.0 toht=959) RED CELL DISTRIBUTION WIDTH (BEAKER) (test 13.5 % 10.3-14.2 crri=598) PLATELET COUNT (BEAKER) (test auzi=554) 43 K/CU MM 150-430 MEAN PLATELET VOLUME (BEAKER) (test vmit=106) 8.3 fL 6.5-10.5 NUCLEATED RED BLOOD CELLS (BEAKER) (test 0 /100 WBC 0-0 rcwi=309) NEUTROPHILS RELATIVE PERCENT (BEAKER) (test 70 % odhw=579) LYMPHOCYTES RELATIVE PERCENT (BEAKER) (test 19 % orue=363) MONOCYTES RELATIVE PERCENT (BEAKER) (test 7 % pvgo=916) EOSINOPHILS RELATIVE PERCENT (BEAKER) (test 4 % ocfg=066) BASOPHILS RELATIVE PERCENT (BEAKER) (test 0 % entf=059) NEUTROPHILS ABSOLUTE COUNT (BEAKER) (test 2.97 K/ L 1.80-8.00 kvex=221) LYMPHOCYTES ABSOLUTE COUNT (BEAKER) (test 0.80 K/ L 1.48-4.50 buqq=186) MONOCYTES ABSOLUTE COUNT (BEAKER) (test rkua=741) 0.30 K/ L 0.00-1.30 EOSINOPHILS ABSOLUTE COUNT (BEAKER) (test 0.18 K/ L 0.00-0.50 vala=717) BASOPHILS ABSOLUTE COUNT (BEAKER) (test rgao=475) 0.02 K/ L 0.00-0.20 0.00POCT-GLUCOSE [id number] 07:16:00 Test Item Value Reference Range Comments POC-GLUCOSE METER (BEAKER) 123 mg/dL 70-110 TESTED AT [facility] [address] [facility] (test ojhb=7940) [facility] [address] [id number] 06:51:00 Test Item Value Reference Range Comments PHOSPHORUS (BEAKER) (test tfsw=380) 1.3 mg/dL 2.3-4.7 [id number] 06:46:00 Test Item Value Reference Range Comments MAGNESIUM (BEAKER) (test amhc=387) 1.7 mg/dL 1.6-2.6 BASIC METABOLIC [id number] 06:46:00 Test Item Value Reference Range Comments SODIUM (BEAKER) (test 140 meq/L 136-145 xsmy=630) POTASSIUM (BEAKER) (test 3.4 meq/L 3.5-5.1 jgro=270) CHLORIDE (BEAKER) (test 108 meq/L 98-107 yeak=013) CO2 (BEAKER) (test 26 meq/L 22-29 mrpz=030) BLOOD UREA NITROGEN 9 mg/dL 7-21 (BEAKER) (test hljj=317) CREATININE (BEAKER) (test 0.89 mg/dL 0.57-1.25 zyet=755) GLUCOSE RANDOM (BEAKER) 89 mg/dL 70-105 (test khtg=862) CALCIUM (BEAKER) (test 8.1 mg/dL 8.4-10.2 evqy=697) EGFR (BEAKER) (test 89 mL/min/1.73 sq m ESTIMATED GFR IS NOT xprl=1577) ACCURATE CREATININE CLEARANCE IN PREDICTING GLOMERULAR FILTRATION RATE. ESTIMATED GFR IS NOT APPLICABLE FOR DIALYSIS PATIENTS. Specimen moderately ictericHEPATIC FUNCTION [id number] 06:46:00 Test Item Value Reference Range Comments TOTAL PROTEIN (BEAKER) (test ufan=208) 5.8 gm/dL 6.0-8.3 ALBUMIN (BEAKER) (test uejg=1518) 2.4 g/dL 3.5-5.0 BILIRUBIN TOTAL (BEAKER) (test cfes=345) 4.1 mg/dL 0.2-1.2 BILIRUBIN DIRECT (BEAKER) (test qhcj=007) 1.8 mg/dL 0.1-0.5 ALKALINE PHOSPHATASE (BEAKER) (test gcpv=030) 99 U/L 40-150 AST (SGOT) (BEAKER) (test xtrg=172) 85 U/L 5-34 ALT (SGPT) (BEAKER) (test rhcf=082) 26 U/L 6-55 Specimen moderately ictericPOCT-GLUCOSE [id number] 06:16:00 Test Item Value Reference Range Comments POC-GLUCOSE METER (BEAKER) 101 mg/dL 70-110 TESTED AT [address] (test haew=2981) [facility] [address] POCT-GLUCOSE [id number] 21:23:00 Test Item Value Reference Range Comments POC-GLUCOSE METER (BEAKER) 83 mg/dL 70-110 TESTED AT [address] (test pobp=8581) [facility] [address] POCT-GLUCOSE [id number] 17:08:00 Test Item Value Reference Range Comments POC-GLUCOSE METER (BEAKER) 114 mg/dL 70-110 TESTED AT [address] (test twwl=3729) [place] [id number] TISSUE [id number] 16:57:00Surgical Pathology Report Case: [id number] Authorizing Provider: Genesis Sosa Ordering Provider: Genesis Sosa MD Chamindika, MD Ordering Location: [place] [address] ICU Collected: 12/22/2016 1228 Pathologist: Zenaida Morales, Received: 12/23/2016 0749 Specimen: Biopsy, Gastric, gastritis STOMACH, RANDOM, ENDOSCOPIC BIOPSY: - ECTATIC VESSELS IN LAMINA PROPRIA, SUGGESTIVE OF PORTAL HYPERTENSIVE GASTROPATHY - NO HELICOBACTER PYLORI-LIKE ORGANISMS SEEN ON WARTHIN-STARRY STAIN - NO INTESTINAL METAPLASIA, DYSPLASIA OR MALIGNANCY NOTED Signing Pathologist Direct Phone Line: [phone]; [id number] bleeding, gastritisGastric biopsyThe specimen is received in two containers of formalin both labeled with the patient's information and labeled "gastric biopsy" and consists of two fragments of pan tissue measuring 0.2 and 0.5 cm, submitted A1. CG/plPERFORMEDThe following special studies were performed on this case and the interpretation is incorporated in the diagnostic report above:[id number] 11:26:00 Test Item Value Reference Range Comments POC-GLUCOSE METER (BEAKER) 130 mg/dL 70-110 TESTED AT [address] (test ukff=5493) [place] [address] URINE [id number] 10:50:00 Test Item Value Reference Range Comments CULTURE (BEAKER) (test pevm=7222) No growth POCT-GLUCOSE [id number] 05:53:00 Test Item Value Reference Range Comments POC-GLUCOSE METER (BEAKER) 123 mg/dL 70-110 TESTED AT [address] (test xnvf=5032) [place] [address] [id number] 04:20:00 Test Item Value Reference Range Comments PHOSPHORUS (BEAKER) (test vjac=162) 1.9 mg/dL 2.3-4.7 [id number] 04:20:00 Test Item Value Reference Range Comments MAGNESIUM (BEAKER) (test zidz=013) 1.5 mg/dL 1.6-2.6 BASIC METABOLIC [id number] 04:20:00 Test Item Value Reference Range Comments SODIUM (BEAKER) (test 137 meq/L 136-145 cfjq=742) POTASSIUM (BEAKER) (test 3.8 meq/L 3.5-5.1 wjgg=406) CHLORIDE (BEAKER) (test 104 meq/L 98-107 fcst=622) CO2 (BEAKER) (test 24 meq/L 22-29 rudy=756) BLOOD UREA NITROGEN 10 mg/dL 7-21 (BEAKER) (test tztj=768) CREATININE (BEAKER) (test 1.00 mg/dL 0.57-1.25 ngub=213) GLUCOSE RANDOM (BEAKER) 104 mg/dL 70-105 (test uctn=610) CALCIUM (BEAKER) (test 8.3 mg/dL 8.4-10.2 qspx=349) EGFR (BEAKER) (test 78 mL/min/1.73 sq m ESTIMATED GFR IS NOT htzq=3969) ACCURATE CREATININE CLEARANCE IN PREDICTING GLOMERULAR FILTRATION RATE. ESTIMATED GFR IS NOT APPLICABLE FOR DIALYSIS PATIENTS. Specimen moderately ictericHEPATIC FUNCTION [id number] 04:20:00 Test Item Value Reference Range Comments TOTAL PROTEIN (BEAKER) (test qnyr=744) 6.0 gm/dL 6.0-8.3 ALBUMIN (BEAKER) (test heyy=8327) 2.4 g/dL 3.5-5.0 BILIRUBIN TOTAL (BEAKER) (test tptw=265) 4.0 mg/dL 0.2-1.2 BILIRUBIN DIRECT (BEAKER) (test scsr=235) 1.7 mg/dL 0.1-0.5 ALKALINE PHOSPHATASE (BEAKER) (test bejg=092) 101 U/L 40-150 AST (SGOT) (BEAKER) (test qfbb=015) 65 U/L 5-34 ALT (SGPT) (BEAKER) (test mzur=574) 22 U/L 6-55 Specimen moderately ictericCBC W/PLT COUNT & AUTO [id number] 04: 12:00 Test Item Value Reference Range Comments WHITE BLOOD CELL COUNT (BEAKER) (test peax=140) 3.9 K/ L 4.0-10.0 RED BLOOD CELL COUNT (BEAKER) (test xyny=428) 2.66 M/ L 4.20-5.80 HEMOGLOBIN (BEAKER) (test xtst=463) 9.0 GM/DL 13.0-16.8 HEMATOCRIT (BEAKER) (test eepc=755) 27.0 % 40.0-50.0 MEAN CORPUSCULAR VOLUME (BEAKER) (test hkrr=209) 102.0 fL 82.0-98.0 MEAN CORPUSCULAR HEMOGLOBIN (BEAKER) (test 33.9 pg 27.0-33.0 fzmq=800) MEAN CORPUSCULAR HEMOGLOBIN CONC (BEAKER) (test 33.4 GM/DL 32.0-36.0 piei=868) RED CELL DISTRIBUTION WIDTH (BEAKER) (test 14.4 % 10.3-14.2 ojdy=674) PLATELET COUNT (BEAKER) (test kdrq=555) 47 K/CU MM 150-430 MEAN PLATELET VOLUME (BEAKER) (test zqre=803) 7.4 fL 6.5-10.5 NUCLEATED RED BLOOD CELLS (BEAKER) (test 0 /100 WBC 0-0 glzq=183) NEUTROPHILS RELATIVE PERCENT (BEAKER) (test 66 % qbpt=786) LYMPHOCYTES RELATIVE PERCENT (BEAKER) (test 24 % kxke=857) MONOCYTES RELATIVE PERCENT (BEAKER) (test 8 % ckoh=907) EOSINOPHILS RELATIVE PERCENT (BEAKER) (test 2 % phdp=875) BASOPHILS RELATIVE PERCENT (BEAKER) (test 1 % rlmg=339) NEUTROPHILS ABSOLUTE COUNT (BEAKER) (test 2.59 K/ L 1.80-8.00 ctfl=662) LYMPHOCYTES ABSOLUTE COUNT (BEAKER) (test 0.92 K/ L 1.48-4.50 uwtr=830) MONOCYTES ABSOLUTE COUNT (BEAKER) (test guzr=698) 0.30 K/ L 0.00-1.30 EOSINOPHILS ABSOLUTE COUNT (BEAKER) (test 0.07 K/ L 0.00-0.50 unuh=460) BASOPHILS ABSOLUTE COUNT (BEAKER) (test ejwa=037) 0.03 K/ L 0.00-0.20 0.00POCT-GLUCOSE [id number] 23:49:00 Test Item Value Reference Range Comments POC-GLUCOSE METER (BEAKER) 103 mg/dL 70-110 TESTED AT [facility] [address] [facility] (test iqzp=6417) [facility] [address] POCT-GLUCOSE [id number] 18:05:00 Test Item Value Reference Range Comments POC-GLUCOSE METER (BEAKER) 226 mg/dL 70-110 TESTED AT [address] (test tyfs=2953) [facility] [address] POCT-GLUCOSE [id number] 12:06:00 Test Item Value Reference Range Comments POC-GLUCOSE METER (BEAKER) 123 mg/dL 70-110 TESTED AT [address] (test ukna=6104) [facility] [address] HEMOGLOBIN [id number] 08:17:00 Test Item Value Reference Range Comments HEMOGLOBIN A1C (BEAKER) (test kyxc=213) 4.0 % 4.3-6.1 POCT-GLUCOSE [id number] 07:19:00 Test Item Value Reference Range Comments POC-GLUCOSE METER (BEAKER) 150 mg/dL 70-110 TESTED AT [address] (test jknx=0731) [place] [id number] T4, [id number] 05:48:00 Test Item Value Reference Range Comments FREE T4 (BEAKER) (test frpb=067) 1.06 ng/dL 0.70-1.48 TSH/FREE T4 IF [id number] 04:48:00 Test Item Value Reference Range Comments THYROID STIMULATING HORMONE (BEAKER) (test 0.24 uIU/mL 0.35-4.94 cgtr=391) [id number] 04:16:00 Test Item Value Reference Range Comments PHOSPHORUS (BEAKER) (test yvwx=498) 3.6 mg/dL 2.3-4.7 [id number] 04:16:00 Test Item Value Reference Range Comments MAGNESIUM (BEAKER) (test wxhp=012) 1.8 mg/dL 1.6-2.6 BASIC METABOLIC [id number] 04:16:00 Test Item Value Reference Range Comments SODIUM (BEAKER) (test 136 meq/L 136-145 mink=094) POTASSIUM (BEAKER) (test 4.6 meq/L 3.5-5.1 sfsb=975) CHLORIDE (BEAKER) (test 104 meq/L 98-107 dhba=877) CO2 (BEAKER) (test 25 meq/L 22-29 zits=254) BLOOD UREA NITROGEN 14 mg/dL 7-21 (BEAKER) (test uxni=397) CREATININE (BEAKER) (test 1.11 mg/dL 0.57-1.25 nwdu=667) GLUCOSE RANDOM (BEAKER) 126 mg/dL 70-105 (test icrq=522) CALCIUM (BEAKER) (test 8.4 mg/dL 8.4-10.2 tfri=627) EGFR (BEAKER) (test 69 mL/min/1.73 sq m ESTIMATED GFR IS NOT mafu=2771) ACCURATE CREATININE CLEARANCE IN PREDICTING GLOMERULAR FILTRATION RATE. ESTIMATED GFR IS NOT APPLICABLE FOR DIALYSIS PATIENTS. Specimen moderately ictericLIPID [id number] 04:16:00 Test Item Value Reference Range Comments TRIGLYCERIDES (BEAKER) (test ctsd=580) 72 mg/dL CHOLESTEROL (BEAKER) (test phpu=502) 147 mg/dL HDL CHOLESTEROL (BEAKER) (test sznf=419) 37 mg/dL LDL CHOLESTEROL CALCULATED (BEAKER) (test 96 mg/dL emph=039) Triglyceride Reference Range: Low Risk <150 Borderline 150- 199 High Risk 200-499 Very High Risk >=500Cholesterol Reference Range: Low Risk <200 Borderline 200-239 High Risk > 240HDL Cholesterol Reference Range: Low Risk >=60 High Risk <40LDL Cholesterol Reference Range: Optimal <100 Near Optimal 100-129 Borderline 130-159 High 160-189 Very High >=190 Specimen moderatelyictericHEPATIC FUNCTION [id number] 04:16: 00 Test Item Value Reference Range Comments TOTAL PROTEIN (BEAKER) (test wygw=252) 6.7 gm/dL 6.0-8.3 ALBUMIN (BEAKER) (test oqcy=7347) 2.9 g/dL 3.5-5.0 BILIRUBIN TOTAL (BEAKER) (test prne=791) 3.8 mg/dL 0.2-1.2 BILIRUBIN DIRECT (BEAKER) (test cvou=129) 1.9 mg/dL 0.1-0.5 ALKALINE PHOSPHATASE (BEAKER) (test mmom=318) 113 U/L 40-150 AST (SGOT) (BEAKER) (test yqpv=034) 51 U/L 5-34 ALT (SGPT) (BEAKER) (test hmnt=251) 21 U/L 6-55 Specimen moderately ictericCBC W/PLT COUNT & AUTO [id number] 04: 03:00 Test Item Value Reference Range Comments WHITE BLOOD CELL COUNT (BEAKER) (test egav=508) 5.9 K/ L 4.0-10.0 RED BLOOD CELL COUNT (BEAKER) (test gswd=105) 2.91 M/ L 4.20-5.80 HEMOGLOBIN (BEAKER) (test mwjs=812) 10.1 GM/DL 13.0-16.8 HEMATOCRIT (BEAKER) (test umfv=320) 29.4 % 40.0-50.0 MEAN CORPUSCULAR VOLUME (BEAKER) (test yvsp=447) 101.0 fL 82.0-98.0 MEAN CORPUSCULAR HEMOGLOBIN (BEAKER) (test 34.6 pg 27.0-33.0 hfmh=995) MEAN CORPUSCULAR HEMOGLOBIN CONC (BEAKER) (test 34.3 GM/DL 32.0-36.0 cfih=535) RED CELL DISTRIBUTION WIDTH (BEAKER) (test 14.5 % 10.3-14.2 dgmz=367) PLATELET COUNT (BEAKER) (test sjfs=195) 46 K/CU MM 150-430 MEAN PLATELET VOLUME (BEAKER) (test uuhg=145) 7.4 fL 6.5-10.5 NUCLEATED RED BLOOD CELLS (BEAKER) (test 0 /100 WBC 0-0 jiyi=295) NEUTROPHILS RELATIVE PERCENT (BEAKER) (test 78 % mrns=419) LYMPHOCYTES RELATIVE PERCENT (BEAKER) (test 13 % zhuz=558) MONOCYTES RELATIVE PERCENT (BEAKER) (test 9 % ilvd=678) EOSINOPHILS RELATIVE PERCENT (BEAKER) (test 0 % rrkq=267) BASOPHILS RELATIVE PERCENT (BEAKER) (test 0 % yqzt=595) NEUTROPHILS ABSOLUTE COUNT (BEAKER) (test 4.61 K/ L 1.80-8.00 tzcn=918) LYMPHOCYTES ABSOLUTE COUNT (BEAKER) (test 0.79 K/ L 1.48-4.50 cihm=466) MONOCYTES ABSOLUTE COUNT (BEAKER) (test ylfi=656) 0.52 K/ L 0.00-1.30 EOSINOPHILS ABSOLUTE COUNT (BEAKER) (test 0.01 K/ L 0.00-0.50 dafe=867) BASOPHILS ABSOLUTE COUNT (BEAKER) (test mipj=071) 0.01 K/ L 0.00-0.20 0.00COMPREHENSIVE METABOLIC [id number] 19:07:00 Test Item Value Reference Range Comments TOTAL PROTEIN (BEAKER) 8.0 gm/dL 6.0-8.3 Specimen slightly (test msyu=927) hemolyzed ALBUMIN (BEAKER) (test 3.0 g/dL 3.5-5.0 Specimen slightly owtb=5001) hemolyzed ALKALINE PHOSPHATASE 144 U/L 40-150 (BEAKER) (test sxxw=245) BILIRUBIN TOTAL (BEAKER) 4.0 mg/dL 0.2-1.2 Specimen slightly (test fpis=792) hemolyzed SODIUM (BEAKER) (test 135 meq/L 136-145 ueik=974) POTASSIUM (BEAKER) (test 4.4 meq/L 3.5-5.1 Specimen slightly svij=351) hemolyzed CHLORIDE (BEAKER) (test 103 meq/L 98-107 jfgc=712) CO2 (BEAKER) (test 23 meq/L 22-29 ebrt=678) BLOOD UREA NITROGEN 11 mg/dL 7-21 (BEAKER) (test mxwr=333) CREATININE (BEAKER) (test 0.99 mg/dL 0.57-1.25 Specimen slightly trar=478) hemolyzed GLUCOSE RANDOM (BEAKER) 128 mg/dL 70-105 (test ktya=872) CALCIUM (BEAKER) (test 9.0 mg/dL 8.4-10.2 grak=058) AST (SGOT) (BEAKER) (test 57 U/L 5-34 Specimen slightly jjga=500) hemolyzed ALT (SGPT) (BEAKER) (test 24 U/L 6-55 Specimen slightly oqbi=718) hemolyzed EGFR (BEAKER) (test 79 mL/min/1.73 sq m ESTIMATED GFR IS NOT gjie=0746) ACCURATE CREATININE CLEARANCE IN PREDICTING GLOMERULAR FILTRATION RATE. ESTIMATED GFR IS NOT APPLICABLE FOR DIALYSIS PATIENTS. Specimen moderately [id number] 19:00:00 Test Item Value Reference Range Comments PARTIAL THROMBOPLASTIN TIME (BEAKER) (test 38.0 seconds 22.5-36.0 mbpl=250) PROTHROMBIN TIME/[id number] 18:59:00 Test Item Value Reference Range Comments PROTIME (BEAKER) (test zwqo=906) 18.1 seconds 11.7-14.7 INR (BEAKER) (test qdov=956) 1.5 <=5.9 RECOMMENDED COUMADIN/WARFARIN INR THERAPY RANGESSTANDARD DOSE: 2.0 - 3.0 Includes: PROPHYLAXIS forvenous thrombosis, systemic embolization; TREATMENT for venous thrombosis and/or pulmonary embolus.HIGH RISK: Target INR is 2.5-3.5 for patients with mechanical heart valves.LACTIC ACID, VENOUS, WHOLE [id number] 18:56:00 Test Item Value Reference Range Comments LACTATE BLOOD VENOUS (2) 2.0 mmol/L 0.5-2.2 Specimen slightly hemolyzed (BEAKER) (test oozm=3918) Effective 01/23/2016: Units/Reference Range ChangeNew: 0.5-2.2 mmol/L Previous: 5 -20 mg/dLSpecimen moderately ictericCBC W/PLT COUNT & AUTO [id number] 18:54:00 Test Item Value Reference Range Comments WHITE BLOOD CELL COUNT (BEAKER) (test cjbn=509) 6.0 K/ L 4.0-10.0 RED BLOOD CELL COUNT (BEAKER) (test bvdw=350) 3.48 M/ L 4.20-5.80 HEMOGLOBIN (BEAKER) (test bfzn=661) 11.7 GM/DL 13.0-16.8 HEMATOCRIT (BEAKER) (test pyzc=680) 34.9 % 40.0-50.0 MEAN CORPUSCULAR VOLUME (BEAKER) (test lgri=299) 100.0 fL 82.0-98.0 MEAN CORPUSCULAR HEMOGLOBIN (BEAKER) (test 33.7 pg 27.0-33.0 phrg=066) MEAN CORPUSCULAR HEMOGLOBIN CONC (BEAKER) (test 33.6 GM/DL 32.0-36.0 qbho=150) RED CELL DISTRIBUTION WIDTH (BEAKER) (test 14.7 % 10.3-14.2 fpmc=620) PLATELET COUNT (BEAKER) (test zvoo=798) 58 K/CU MM 150-430 MEAN PLATELET VOLUME (BEAKER) (test jovc=729) 7.8 fL 6.5-10.5 NUCLEATED RED BLOOD CELLS (BEAKER) (test 0 /100 WBC 0-0 pulj=321) NEUTROPHILS RELATIVE PERCENT (BEAKER) (test 90 % emla=740) LYMPHOCYTES RELATIVE PERCENT (BEAKER) (test 5 % qnti=684) MONOCYTES RELATIVE PERCENT (BEAKER) (test 5 % shnf=400) EOSINOPHILS RELATIVE PERCENT (BEAKER) (test 0 % jjzf=675) BASOPHILS RELATIVE PERCENT (BEAKER) (test 0 % rbjx=809) NEUTROPHILS ABSOLUTE COUNT (BEAKER) (test 5.40 K/ L 1.80-8.00 uoeo=517) LYMPHOCYTES ABSOLUTE COUNT (BEAKER) (test 0.31 K/ L 1.48-4.50 sviq=018) MONOCYTES ABSOLUTE COUNT (BEAKER) (test kqya=974) 0.28 K/ L 0.00-1.30 EOSINOPHILS ABSOLUTE COUNT (BEAKER) (test 0.02 K/ L 0.00-0.50 ufog=295) BASOPHILS ABSOLUTE COUNT (BEAKER) (test bpsd=452) 0.01 K/ L 0.00-0.20 0.00PH, [id number] 18:39:00 Test Item Value Reference Range Comments PH VENOUS (BEAKER) (test urpo=290) 7.31 7.32-7.42 URINALYSIS W/ [id number] 16:13:00 Test Item Value Reference Range Comments COLOR (BEAKER) (test aapb=898) Yellow CLARITY (BEAKER) (test mgso=536) Clear SPECIFIC GRAVITY UA (BEAKER) (test uocd=886) 1.017 1.001-1.035 PH UA (BEAKER) (test mioo=702) 6.0 5.0-8.0 PROTEIN UA (BEAKER) (test selv=963) 30 mg/dL Negative GLUCOSE UA (BEAKER) (test fnrt=256) 50 mg/dL Negative KETONES UA (BEAKER) (test jfcv=436) Negative Negative BILIRUBIN UA (BEAKER) (test zcxa=594) Negative Negative BLOOD UA (BEAKER) (test pcjk=213) Trace Negative NITRITE UA (BEAKER) (test fwxo=825) Negative Negative LEUKOCYTE ESTERASE UA (BEAKER) (test ffqo=602) Negative Negative UROBILINOGEN UA (BEAKER) (test izyg=166) 0.2 mg/dL 0.2-1.0 RBC UA (BEAKER) (test okqd=409) 3 /HPF WBC UA (BEAKER) (test ombj=654) < /HPF HYALINE CASTS (BEAKER) (test tggb=483) 3 /LPF SOURCE(BEAKER) (test uiky=3617) POCT-LACTIC ACID, [id number] 14:44:00 Test Item Value Reference Range Comments POC-LACTIC ACID, VENOUS 2.7 mmol/L 0.9-1.7 TESTED AT [facility] [address] (BEAKER) (test qvfp=7364) [place] [address] [id number] 14:10:00 Test Item Value Reference Range Comments AMMONIA (BEAKER) (test lmqm=168) 72 mol/L 18-72 [id number] 14:09:00 Test Item Value Reference Range Comments PHOSPHORUS (BEAKER) (test yxnq=871) 2.6 mg/dL 2.3-4.7 HEPATIC FUNCTION [id number] 14:09:00 Test Item Value Reference Range Comments TOTAL PROTEIN (BEAKER) (test azsl=252) 7.1 gm/dL 6.0-8.3 ALBUMIN (BEAKER) (test zuwu=3549) 2.7 g/dL 3.5-5.0 BILIRUBIN TOTAL (BEAKER) (test twfx=407) 3.7 mg/dL 0.2-1.2 BILIRUBIN DIRECT (BEAKER) (test sopa=366) 1.9 mg/dL 0.1-0.5 ALKALINE PHOSPHATASE (BEAKER) (test albp=808) 133 U/L 40-150 AST (SGOT) (BEAKER) (test undu=028) 43 U/L 5-34 ALT (SGPT) (BEAKER) (test zlhl=960) 21 U/L 6-55 Specimen slightly [id number] 14:09:00 Test Item Value Reference Range Comments AMYLASE (BEAKER) (test cbxz=710) 106 U/L 25-125 Specimen slightly ictericCREATINE KINASE (CK)2016-12-21 14:09:00 Test Item Value Reference Range Comments CREATINE KINASE TOTAL (BEAKER) (test fcfc=637) 119 U/L 29-200 [id number] 14:09:00 Test Item Value Reference Range Comments LIPASE (BEAKER) (test wvys=159) 141 U/L 8-78 Specimen slightly ictericPT/[id number] 13:57:00 Test Item Value Reference Range Comments PROTIME (BEAKER) (test iuak=620) 17.7 seconds 11.7-14.7 INR (BEAKER) (test lnny=001) 1.5 <=5.9 PARTIAL THROMBOPLASTIN TIME (BEAKER) (test 40.7 seconds 22.5-36.0 vfkc=087) RECOMMENDED COUMADIN/WARFARIN INR THERAPY RANGESSTANDARD DOSE: 2.0 - 3.0 Includes: PROPHYLAXIS forvenous thrombosis, systemic embolization; TREATMENT for venous thrombosis and/or pulmonary embolus.HIGH RISK: Target INR is 2.5-3.5 for patients with mechanical heart valves.CREATINE KINASE (CK), TOTAL AND [id number] 13:52:00 Test Item Value Reference Range Comments CREATINE KINASE TOTAL (BEAKER) (test fauo=631) 125 U/L 29-200 CREATINE KINASE-MB (BEAKER) (test mdzb=186) 1.3 ng/mL 0.0-6.6 CREATINE KINASE-MB INDEX (BEAKER) (test rbxu=113) 1.0 % Effective 08/08/2014: CK-MB Reference Range ChangeNew: 0.0-6.6 Previous: 0.0- 4.9CK-MB Reference Range:<6.7 Normal6.7-10.0 Borderline>10.0 AbnormalTROPONIN [id number] 13:52:00 Test Item Value Reference Range Comments TROPONIN I (BEAKER) (test dufw=119) 0.02 ng/mL 0.00-0.03 Effective 08/08/2014: Reference Range ChangeNew: 0.00-0.03 Previous 0.00- 0.15Troponin I (TnI) levels must be interpreted in the context of the presenting symptoms and the clinical findings. Elevated TnI levels indicate myocardial damage, but are not specific for ischemic heart disease. Elevated TnI levels are seen in patients with other cardiac conditions (including myocarditis and congestive heartfailure), and slight TnI elevations occur in patients with other conditions, including sepsis, renalfailure, acidosis, acute neurological disease, and persistent tachyarrhythmia.B-TYPE NATRIURETIC FACTOR ( BNP)2016-12-21 13:52:00 Test Item Value Reference Range Comments B-TYPE NATRIURETIC PEPTIDE (BEAKER) (test rclh=559) 64 pg/mL 0-100 [id number] 13:46:00 Test Item Value Reference Range Comments MAGNESIUM (BEAKER) (test hotz=188) 2.2 mg/dL 1.6-2.6 BASIC METABOLIC [id number] 13:46:00 Test Item Value Reference Range Comments SODIUM (BEAKER) (test 136 meq/L 136-145 kgxd=930) POTASSIUM (BEAKER) (test 3.6 meq/L 3.5-5.1 tjan=045) CHLORIDE (BEAKER) (test 102 meq/L 98-107 qmex=172) CO2 (BEAKER) (test 15 meq/L 22-29 mvot=896) BLOOD UREA NITROGEN 12 mg/dL 7-21 (BEAKER) (test yuhv=927) CREATININE (BEAKER) (test 1.29 mg/dL 0.57-1.25 sfon=905) GLUCOSE RANDOM (BEAKER) 141 mg/dL 70-105 (test ublw=529) CALCIUM (BEAKER) (test 9.8 mg/dL 8.4-10.2 bwyz=188) EGFR (BEAKER) (test 58 mL/min/1.73 sq m ESTIMATED GFR IS NOT rycc=2220) ACCURATE CREATININE CLEARANCE IN PREDICTING GLOMERULAR FILTRATION RATE. ESTIMATED GFR IS NOT APPLICABLE FOR DIALYSIS PATIENTS. Specimen moderately ictericCBC W/PLT COUNT & AUTO [id number] 13: 45:00 Test Item Value Reference Range Comments WHITE BLOOD CELL COUNT (BEAKER) (test bwki=441) 7.2 K/ L 4.0-10.0 RED BLOOD CELL COUNT (BEAKER) (test wpla=959) 3.62 M/ L 4.20-5.80 HEMOGLOBIN (BEAKER) (test xqqe=318) 12.5 GM/DL 13.0-16.8 HEMATOCRIT (BEAKER) (test dmjd=462) 36.9 % 40.0-50.0 MEAN CORPUSCULAR VOLUME (BEAKER) (test udur=057) 102.0 fL 82.0-98.0 MEAN CORPUSCULAR HEMOGLOBIN (BEAKER) (test 34.6 pg 27.0-33.0 ckjq=959) MEAN CORPUSCULAR HEMOGLOBIN CONC (BEAKER) (test 33.9 GM/DL 32.0-36.0 jxgf=975) RED CELL DISTRIBUTION WIDTH (BEAKER) (test 14.7 % 10.3-14.2 dhjy=204) PLATELET COUNT (BEAKER) (test tnas=212) 91 K/CU MM 150-430 MEAN PLATELET VOLUME (BEAKER) (test aamw=864) 7.8 fL 6.5-10.5 NUCLEATED RED BLOOD CELLS (BEAKER) (test 0 /100 WBC 0-0 yzll=795) NEUTROPHILS RELATIVE PERCENT (BEAKER) (test 51 % gfqi=100) LYMPHOCYTES RELATIVE PERCENT (BEAKER) (test 34 % ldtg=728) MONOCYTES RELATIVE PERCENT (BEAKER) (test 11 % vocd=196) EOSINOPHILS RELATIVE PERCENT (BEAKER) (test 4 % dizm=659) BASOPHILS RELATIVE PERCENT (BEAKER) (test 1 % rhnd=166) NEUTROPHILS ABSOLUTE COUNT (BEAKER) (test 3.63 K/ L 1.80-8.00 ivqi=372) LYMPHOCYTES ABSOLUTE COUNT (BEAKER) (test 2.44 K/ L 1.48-4.50 ckjf=531) MONOCYTES ABSOLUTE COUNT (BEAKER) (test soks=785) 0.77 K/ L 0.00-1.30 EOSINOPHILS ABSOLUTE COUNT (BEAKER) (test 0.29 K/ L 0.00-0.50 xhsp=810) BASOPHILS ABSOLUTE COUNT (BEAKER) (test ppwh=598) 0.05 K/ L 0.00-0.20 POCT-LACTIC ACID, [id number] 13:10:00 Test Item Value Reference Range Comments POC-LACTIC ACID, VENOUS 10.4 mmol/L 0.9-1.7 TESTED AT [address] (BEAKER) (test bgwc=1767) [place] [address] POCT-GLUCOSE [id number] 13:06:00 Test Item Value Reference Range Comments POC-GLUCOSE METER (AKER) 137 mg/dL 70-110 TESTED AT [address] (test tlmh=1820) [place] [address]
[2018-09-17 00:47] LABS: Absolute Monocytes 0.2 K/uL (0.1-1.3); Absolute Neutrophil 2.6 K/uL (1.8-8.0); Basophils % 0.3 % (0-1.3); Eosinophils % 2.2 % (0-4.4); Lymphocytes % 25.9 % (15.3-44.8); MPV 9.4 fL (7.6-11.3); Monocytes % 6.3 % (3.3-12.3); RBC Red Blood Cell Count 4.31 M/uL (4.33-5.43)
[2018-09-17 00:51] LABS: Protime INR 1.24
[2018-09-17 01:01] LABS: Bilirubin Direct 0.5 mg/dL (0-0.2); Bilirubin Total 1.6 mg/dL (0.2-1.0); Potassium 4.1 mmol/L (3.5-5.1); Protein, Total 7.4 g/dL (6.4-8.2); Troponin (Emerg Dept Use Only) 0.03 ng/mL (0.0-0.045)
[2018-09-17 01:14] LABS: Urine White Blood Cell Casts OK
[2018-09-17 01:15] LABS: Blood Morphology Comment NOT SEEN (NOT SEEN); Platelet Estimate DECR
--- NOTE | 2018-09-17 01:33 | EDPHYS ---
Physician Documentation [facility] Name: Arian Wong Jr Age: 53 yrs Sex: Male : 1965 Arrival Date: 09/17/2018 Time: 00:10 Bed 3 Private MD: ED Physician Aris Plasencia HPI: 09/17 01:34 This 53 yrs old Male presents to ER via EMS with complaints of S/S of Possible tw4 Stroke. 01:34 The patient's problem is reported as altered mental status, confused. The patient's tw4 problem is reported as weakness, in the right upper extremity, in the right lower extremity. Onset: The symptoms/episode began/occurred just prior to arrival, today. Duration: the symptoms became worse. Duration: the symptoms became worse just prior to arrival. Context: the episode(s) was witnessed, by family, sister. The symptoms are alleviated by nothing. The symptoms are aggravated by nothing. Severity of symptoms: At their worst the symptoms were moderate in the emergency department the symptoms are unchanged. The patient has not experienced similar symptoms in the past. Historical: - Allergies: 00:22 pecan; jd3 - Home Meds: 00:22 folic acid 1 mg Oral tab 1 tab once daily [Active]; propranolol 10 mg Oral tab 1 tab jd3 [Active]; lactulose 10 gram/15 mL (15 mL) Oral soln twice a day [Active]; levetiracetam 1,000 mg oral tab twice a day [Active]; Xifaxan 550 mg oral tab 1 tab 2 times per day [Active]; Centrum Silver oral oral [Active]; Albuterol Inhl [Active]; - PMHx: 00:22 CVA; Asthma; Seizures; liver problem; jd3 00:35 Cirrhosis; ca1 - PSHx: 00:22 brain sx; jd3 - Immunization history:: Adult Immunizations up to date. - Social history:: Smoking status: Patient/guardian denies using tobacco, the patient reports quitting approximately 2 years ago. - Ebola Screening: : Patient negative for fever greater than or equal to 101.5 degrees Fahrenheit, and additional compatible Ebola Virus Disease symptoms. ROS: 01:34 Constitutional: Negative for fever, chills, and weight loss, Eyes: Negative for injury, tw4 pain, redness, and discharge, Cardiovascular: Negative for chest pain, palpitations, and edema, Respiratory: Negative for shortness of breath, cough, wheezing, and pleuritic chest pain, Abdomen/GI: Negative for abdominal pain, nausea, vomiting, diarrhea, and constipation, MS/Extremity: Negative for injury and deformity, Skin: Negative for injury, rash, and discoloration. :34 Neuro: Positive for altered mental status, weakness, Negative for dizziness, gait disturbance, headache, hearing loss, seizure activity, speech changes. Exam: :34 Radiologist reports: left basal ganglia bleed with intraventricular extension tw4 01:34 Head/Face: Normocephalic, atraumatic. Eyes: Pupils equal round and reactive to light, extra-ocular motions intact. Lids and lashes normal. Conjunctiva and sclera are non-icteric and not injected. Cornea within normal limits. Periorbital areas with no swelling, redness, or edema. Chest/axilla: Normal chest wall appearance and motion. Nontender with no deformity. No lesions are appreciated. Cardiovascular: Regular rate and rhythm with a normal S1 and S2. No gallops, murmurs, or rubs. Normal PMI, no JVD. No pulse deficits. Respiratory: Lungs have equal breath sounds bilaterally, clear to auscultation and percussion. No rales, rhonchi or wheezes noted. No increased work of breathing, no retractions or nasal flaring. Abdomen/GI: Soft, non-tender, with normal bowel sounds. No distension or tympany. No guarding or rebound. No evidence of tenderness throughout. MS/ Extremity: Pulses equal, no cyanosis. Neurovascular intact. Full, normal range of motion. :34 Neuro: Orientation: is normal, Mentation: is normal, responsive to voice confused, Memory: is normal, Motor: is normal, strength is 4/5 in the right arm and right leg, Sensation: is normal. Vital Signs: 00:23 BP 128 / 88; Pulse 62; Resp 18 S; Temp 98.7(O); Pulse Ox 98% on R/A; Weight 68.04 kg jd3 (R); Height 5 ft. 7 in. (170.18 cm) (R); Pain 0/10; 01:18 BP 126 / 74; Pulse 63; Resp 18; Pulse Ox 96% on R/A; Pain 0/10; aa1 01:47 BP 120 / 69; Pulse 92; Resp 18; Temp 98.3(O); Pulse Ox 99% on R/A; Pain 0/10; aa1 00:23 Body Mass Index 23.49 (68.04 kg, 170.18 cm) jd3 NIH Stroke Scale Scores: 00:25 NIHSS Score: 2 ea MDM: 00:12 Patient medically screened. tw4 01:34 Differential diagnosis: CVA, TIA, Dementia. Data reviewed: vital signs, nurses notes. tw Data interpreted: Pulse oximetry: Interpretation: normal. Counseling: I had a detailed discussion with the patient and/or guardian regarding: the historical points, exam findings, and any diagnostic results supporting the discharge/admit diagnosis. ED course: Discussed case with Dr Mariel Velez Neuro netezza developer accepts and agrees with treatment plan and admission. 09/17 00:14 Order name: Hepatic Function tw4 09/17 00:14 Order name: Magnesium tw4 09/17 00:14 Order name: Troponin (emerg Dept Use Only) tw4 09/17 00:14 Order name: Basic Metabolic Panel tw4 09/17 00:14 Order name: CBC with Diff tw4 09/17 00:14 Order name: Protime (+inr); Complete Time: 00:54 tw4 09/17 00:14 Order name: Ptt, Activated; Complete Time: 00:54 tw4 09/17 00:54 Interpretation: Normal except. tw4 09/17 00:14 Order name: Stroke CXR 1 View tw4 09/17 00:18 Order name: Ammonia; Complete Time: 01:27 EDMS 09/17 00:33 Order name: glucometer results - FOR PT WITH NO ID jd3 09/17 00:38 Order name: Head Brain Wo Cont EDMS 09/17 00:49 Order name: CBC Smear Scan EDMS 09/17 00:14 Order name: EKG; Complete Time: 00:15 tw4 09/17 00:14 Order name: Accucheck; Complete Time: 00:33 tw4 09/17 00:14 Order name: Cardiac monitoring; Complete Time: 00:27 tw4 09/17 00:14 Order name: EKG - Nurse/Tech; Complete Time: 00:21 tw4 09/17 00:14 Order name: IV Saline Lock; Complete Time: 00:09/17 00:14 Order name: Labs collected and sent; Complete Time: 00:09/17 00:14 Order name: NPO; Complete Time: 00:09/17 00:14 Order name: O2 Per Protocol; Complete Time: 00:09/17 00:14 Order name: O2 Sat Monitoring; Complete Time: 00:09/17 00:14 Order name: Stroke Swallow Screen; Complete Time: 00 Administered Medications: No medications were administered Point of Care Testing: Blood Glucose: 00:33 Blood Glucose: 109 mg/dL; jd3 Ranges: Critical Glucose Levels:Adult <50 mg/dl or >400 mg/dl <40 mg/dl or >180 mg/dl Disposition: 09/17/18 01:32 Transfer ordered to [facility]. Diagnosis is intracranial hemorrhage. - Reason for transfer: Higher level of care. - Accepting physician is Dr Floyd. - Condition is Stable. - Problem is new. - Symptoms have improved. NIH Stroke Scale - NIH Stroke Score Date: 09/17/2018 Time: 00:25 Total Score = 2 1a. Level of Consciousness (LOC) - 0(Alert) 1b. Level of Consciousness (LOC) (Year \T\ Age) - 0(Both) 1c. LOC Commands (Open \T\ Closes Eyes/Cut Off Machine Unloader) - 0(Both) 2. Best Gaze (Lateral Gaze Paresis) - 0(Normal) 3. Visual Field Loss - 0(No visual loss) 4. Facial Palsy - 0(Normal) 5a. Left Arm: Motor (10-second hold) - 0(No drift) 5b. Right Arm: Motor (10-second hold) - 0(No drift) 6a. Left Leg: Motor (5-second hold - always test supine) - 0(No drift) 6b. Right Leg: Motor (5-second hold - always test supine) - 0(No drift) 7. Limb Ataxia (finger/nose \T\ heel/garcia - test with eyes open) - 2(Present in two limbs) 8. Sensory Loss (pinprick arms/legs/face) - 0(Normal) 9. Best Language: Aphasia (description/naming/reading) - 0(No aphasia) 10. Dysarthria (speech clarity - read or repeat words) - 0(Normal) 11. Extinction and Inattention (visual/tactile/auditory/spatial/personal) - 0(No abnormality) Initials: ea Signatures: Dispatcher [employer] EDMS Lisa Berger, RN RN aa1 Gadiel Shanks RN RN jd3 Aris Plasencia MD MD tw4 Rocio Means RN RN ca1 Corrections: (The following items were deleted from the chart) 00:15 00:14 HEPATIC FUNCTION+C.LAB.BRZ ordered. EDMS EDMS 00:15 00:14 MAGNESIUM+C.LAB.BRZ ordered. EDMS EDMS 00:15 00:14 TROPONIN (EMERG DEPT USE ONLY)+C.LAB.BRZ ordered. EDMS EDMS 00:15 00:14 BASIC METABOLIC PANEL+C.LAB.BRZ ordered. EDMS EDMS 00:15 00:14 CBC+H.LAB.BRZ ordered. EDMS EDMS 00:15 00:14 PROTIME (+INR)+COAG.LAB.BRZ ordered. EDMS EDMS 00:15 00:14 PTT, ACTIVATED+COAG.LAB.BRZ ordered. EDMS EDMS 00:18 00:18 AMMONIA+C.LAB.BRZ ordered. EDMS EDMS 00:38 00:15 CT-STROKE BRAIN W/O CONTRAST+CT.RAD.BRZ ordered. EDMS EDMS 01:50 01:32 09/17/2018 01:32 Transfer ordered to [facility]. aa1 Diagnosis is intracranial hemorrhage. Reason for transfer: Higher level of care. Accepting physician is Dr Floyd. Condition is Stable. Problem is new. Symptoms have improved. tw4
--- NOTE | 2018-09-17 01:33 | ER ---
Nurse's Notes [facility] Name: Arian Wong Jr Age: 53 yrs Sex: Male : 1965 Arrival Date: 09/17/2018 Time: 00:10 Bed 3 Private MD: Diagnosis: intracranial hemorrhage Presentation: 09/17 00:11 Presenting complaint: EMS states: "Pt had vomited 3 hours ago, and he has been having jd3 right sided weakness since the morning of the 09-15-18. he has had CVA's in the past. He has some right arm droop, but no obvious signs of facial droop or speech problems.". Transition of care: patient was not received from another setting of care. No acute neurological deficit is noted. Onset of symptoms was September 15, 2018. Risk Assessment: Do you want to hurt yourself or someone else? Patient reports no desire to harm self or others. Initial Sepsis Screen: Does the patient meet any 2 criteria? No. Patient's initial sepsis screen is negative. Does the patient have a suspected source of infection? No. Patient's initial sepsis screen is negative. Care prior to arrival: None. 00:11 Method Of Arrival: EMS: [facility] jd3 00:11 Acuity: MEE 2 jd3 00:35 Pre-hospital glucose is not applicable to this patient. jd3 Triage Assessment: 00:26 Neuro: Reports weakness. jd3 00:37 The onset of the patients symptoms was September 15, 2018 at 08:00. jd3 Stroke Activation: Symptom onset > 6 hours Physician: Stroke Attending; Name: ; Notified At: ; Arrived At: Physician: Chief Stroke Resident; Name: ; Notified At: ; Arrived At: Physician: Stroke Resident; Name: ; Notified At: ; Arrived At: Physician: ED Attending; Name: Dr. Plasencia; Notified At: ; Arrived At: Physician: ED Resident; Name: ; Notified At: ; Arrived At: Historical: - Allergies: 00:22 pecan; jd3 - Home Meds: 00:22 folic acid 1 mg Oral tab 1 tab once daily [Active]; propranolol 10 mg Oral tab 1 tab jd3 [Active]; lactulose 10 gram/15 mL (15 mL) Oral soln twice a day [Active]; levetiracetam 1,000 mg oral tab twice a day [Active]; Xifaxan 550 mg oral tab 1 tab 2 times per day [Active]; Centrum Silver oral oral [Active]; Albuterol Inhl [Active]; - PMHx: 00:22 CVA; Asthma; Seizures; liver problem; jd3 00:35 Cirrhosis; ca1 - PSHx: 00:22 brain sx; jd3 - Immunization history:: Adult Immunizations up to date. - Social history:: Smoking status: Patient/guardian denies using tobacco, the patient reports quitting approximately 2 years ago. - Ebola Screening: : Patient negative for fever greater than or equal to 101.5 degrees Fahrenheit, and additional compatible Ebola Virus Disease symptoms. Screenin:24 Abuse screen: Denies threats or abuse. Nutritional screening: No deficits noted. jd3 Tuberculosis screening: No symptoms or risk factors identified. Fall Risk IV access (20 points). Ambulatory Aid- Crutches/Cane/Walker (15 pts). Gait- Weak (10 pts.). Mental Status- Overestimates/Forgets Limitations (15 pts.). Total James Fall Scale indicates High Risk Score (45 or more points). Fall prevention measures have been instituted. Side Rails Up X 2 Placed Close to Nursing Station Frequent Obs/Assessments Occuring Family Present and informed to notify staff if the need to leave the bedside. Assessment: 00:22 General: Appears in no apparent distress. comfortable, Behavior is calm, cooperative, aa1 appropriate for age. Pain: Denies pain. Neuro: Level of Consciousness is awake, alert, obeys commands, Oriented to person, place, situation, Moves all extremities. Speech is normal, Facial symmetry appears normal, Pupils are PERRLA. Neuro: Social Research Assistant are equal bilaterally Denies blurred vision dizziness, paresthesias numbness. Cardiovascular: Heart tones S1 S2 present Rhythm is regular. Respiratory: Airway is patent Respiratory effort is even, unlabored, Respiratory pattern is regular, symmetrical. GI: Abdomen is round Bowel sounds present X 4 quads. Abd is soft and non tender X 4 quads. Parent/caregiver reports the patient having vomiting. : No signs and/or symptoms were reported regarding the genitourinary system. EENT: No signs and/or symptoms were reported regarding the EENT system. Derm: Skin is intact, is healthy with good turgor, Skin is pink, warm \\T\\ dry. Musculoskeletal: Circulation, motion, and sensation intact. Capillary refill < 3 seconds. 00:25 The patient has not been NPO before screening. The patient is currently on the jd3 following diet: normal The patient is alert, and able to follow commands. The patient does not exhibit slurred or garbled speech. The patient is not exhibiting difficulty speaking. The patient does not exhibit difficulty understanding words. The patient is able to swallow own secretions with no drooling or need for suction. Patient tolerated one teaspoon of water. No drooling, immediate coughing, gurgling, or clearing of the throat was noted. The patient tolerated 90mL of water. No drooling, immediate coughing, gurgling, or clearing of the throat was noted. The patient passed the bedside swallow screening. Oral medications may be given as ordered. Contact Physician for further diet orders. Provider notified of bedside swallow screening results: Aris Plasencia MD. 00:26 Reassessment: Pt taken to CT at this time. aa1 00:36 T-PA (Activase) Screening: Contraindications: Intracranial hemorrhage and its risk jd3 factor and suspicion of subarachnoid bleed: Yes. 00:40 Reassessment: Patient appears in no apparent distress at this time. No changes from aa1 previously documented assessment. Patient and/or family updated on plan of care and expected duration. Pain level reassessed. MD at bedside discussing CT results with pt \\T\\ sister; pt to be transferred. 01:23 Reassessment: Patient appears in no apparent distress at this time. No changes from aa1 previously documented assessment. Pt resting quietly, family at bedside. Attempted to call report but was told by transfer center that they may be reassigning pt to a different room and would call back momentarily. 01:35 Reassessment: Report given to Lali Troncoso RN at [facility]. aa1 01:48 Reassessment: Patient appears in no apparent distress at this time. No changes from aa1 previously documented assessment. [facility] present for transfer to [facility]. Vital Signs: 00:23 BP 128 / 88; Pulse 62; Resp 18 S; Temp 98.7(O); Pulse Ox 98% on R/A; Weight 68.04 kg jd3 (R); Height 5 ft. 7 in. (170.18 cm) (R); Pain 0/10; 01:18 BP 126 / 74; Pulse 63; Resp 18; Pulse Ox 96% on R/A; Pain 0/10; aa1 01:47 BP 120 / 69; Pulse 92; Resp 18; Temp 98.3(O); Pulse Ox 99% on R/A; Pain 0/10; aa1 00:23 Body Mass Index 23.49 (68.04 kg, 170.18 cm) jd3 NIH Stroke Scale Scores: 00:25 NIHSS Score: 2 ea ED Course: 00:10 Patient arrived in ED. am2 00:12 Aris Plasencia MD is Attending Physician. tw4 00:15 Inserted saline lock: 18 gauge in right antecubital area, using aseptic technique. aa1 Blood collected. 00:16 Triage completed. jd3 00:21 Lisa Berger, RN is Primary Nurse. aa1 00:22 Patient has correct armband on for positive identification. Placed in gown. Bed in low aa1 position. Call light in reach. Side rails up X2. Adult w/ patient. night monitor on. Pulse ox on. NIBP on. Warm blanket given. 00:24 Arm band placed on. EKG completed in triage. Results shown to MD. jd3 00:25 X-ray completed. Portable x-ray completed in exam room. Patient tolerated procedure kw well. 00:33 CT completed. Patient tolerated procedure well. Patient moved to CT via stretcher. Patient moved back from CT. 00:38 Head Brain Wo Cont In Process Unspecified. EDMS 01:48 No provider procedures requiring assistance completed. Patient transferred, IV remains aa1 in place. 02:28 Stroke CXR 1 View In Process Unspecified. EDMS Administered Medications: No medications were administered Point of Care Testing: Blood Glucose: 00:33 Blood Glucose: 109 mg/dL; jd3 Ranges: Outcome: 01:32 ER care complete, transfer ordered by . tw4 01:48 Transferred by helicopter to [facility], Transfer form completed. aa1 01:48 Condition: stable 01:48 Discharge instructions given to patient, family, Instructed on the need for transfer, Demonstrated understanding of instructions. 01:50 Patient left the ED. aa1 NIH Stroke Scale - NIH Stroke Score Date: 09/17/2018 Time: 00:25 Total Score = 2 1a. Level of Consciousness (LOC) - 0(Alert) 1b. Level of Consciousness (LOC) (Year \\T\\ Age) - 0(Both) 1c. LOC Commands (Open \\T\\ Closes Eyes/Library Cataloging Technician) - 0(Both) 2. Best Gaze (Lateral Gaze Paresis) - 0(Normal) 3. Visual Field Loss - 0(No visual loss) 4. Facial Palsy - 0(Normal) 5a. Left Arm: Motor (10-second hold) - 0(No drift) 5b. Right Arm: Motor (10-second hold) - 0(No drift) 6a. Left Leg: Motor (5-second hold - always test supine) - 0(No drift) 6b. Right Leg: Motor (5-second hold - always test supine) - 0(No drift) 7. Limb Ataxia (finger/nose \\T\\ heel/garcia - test with eyes open) - 2(Present in two limbs) 8. Sensory Loss (pinprick arms/legs/face) - 0(Normal) 9. Best Language: Aphasia (description/naming/reading) - 0(No aphasia) 10. Dysarthria (speech clarity - read or repeat words) - 0(Normal) 11. Extinction and Inattention (visual/tactile/auditory/spatial/personal) - 0(No abnormality) Initials: ea Signatures: Dispatcher [employer] EDLisa Ferrara RN RN aa1 Adi Devine Kimberlee kw Moreno, Amanda am2 Antunez, Elena, RN RN ea Davies, Jonathon, RN RN jd3 Wadley, Terrence, MD MD tw4 Rocio Means RN RN ca1 Corrections: (The following items were deleted from the chart) 00:50 00:24 Fall Risk IV access (20 points). Ambulatory Aid- Crutches/Cane/Walker (15 ea pts). Gait- Weak (10 pts.). Mental Status- Overestimates/Forgets Limitations (15 pts.). Total James Fall Scale indicates High Risk Score (45 or more points). Fall prevention measures have been instituted. Side Rails Up X 2 Placed Close to Nursing Station Frequent Obs/Assessments Occuring Family Present and informed to notify staff if the need to leave the bedside jd3
--- NOTE | 2018-09-17 06:51 | EKG ---
Test Date: 2018-09-17 Test Time: 00:05:44 Talent Acquisition Manager: PEDRO MEASUREMENT RESULTS: Intervals: Rate: 63 ID: [id number] QRSD: 104 QT: 438 QTc: 448 [place]: P: 75 ID: [id number] QRS: 76 T: 62 INTERPRETIVE STATEMENTS: Normal sinus rhythm Normal ECG No previous ECG available for comparison Electronically Signed On 09-17-18 06:51:04 CREATIVE SPECIALIST by John Murcia
--- NOTE | 2018-09-17 08:24 | RAD REPORT ---
EXAM DESCRIPTION: RAD - Chest Single View - 09/17/2018 2:28 am CLINICAL HISTORY: Vomiting, headache Chest pain. COMPARISON: No comparisons FINDINGS: Portable technique limits examination quality. The lungs are grossly clear. The heart is normal in size. No displaced fractures. IMPRESSION: No acute intrathoracic process suspected.
--- NOTE | 2018-09-17 08:36 | RAD REPORT ---
EXAM DESCRIPTION: CT - Head Brain Wo Cont - 09/17/2018 5:35 am CLINICAL HISTORY: WEAKNESS Drowsiness COMPARISON: No comparisons TECHNIQUE: All CT scans are performed using dose optimization technique as appropriate and may inclu de automated exposure control or mA/KV adjustment according to patient size. FINDINGS: A 4 cm area of hemorrhage is present in the left basal ganglia anteriorly. The hemorrhage demonstrates intraarticular extension with mild dilatation/ hydrocephalus noted.[id number] midline shift is present of 4 mm. Gliosis is noted in the right frontal lobe. The paranasal sinuses and mastoids are clear. The calvarium is intact. IMPRESSION: Acute left basal ganglia intraparenchymal hemorrhage with intraventricular extension. Mild hydrocephalus and [id number] midline shift as detailed. A preliminary written report was provided at the time of the study, and the report was reviewed prio r to final dictation.
== END 2018-09-17 01:50 | disposition short-term general hospital (02) ==
LOC: ER 00:08
DX: I61.8 Other nontraumatic intracerebral hemorrhage (principal); R27.0 Ataxia, unspecified
CPT/HCPCS: 36415; 70450; 71045; 80048; 80076; 82140; 82962; 83735; 84484; 85025; 85610; 85730; 93005; 99285